=== PATIENT | male | born 1960 | race Caucasian/White ===

== ENCOUNTER 2017-05-07 19:51 | Inpatient (IN) ==
[2017-05-07] MEDS ORDERED: Aspirin 325 MG TABLET PO ONE (20:23)
--- NOTE | 2017-05-07 20:25 | Emergency Department Note ---
Disposition Clinical Impression: Lung nodules Chest pain Qualifiers: Chest pain type: unspecified Qualified Code(s): R07.9 - Chest pain, unspecified Disposition: Admitted As Inpatient Condition: Fair Time of Disposition: 23:36 Chest Pain HPI - General Chief Complaint: ED Chest Pain Stated Complaint: Chest Pain Time Seen by Provider: 05/07/17 20:09 Source: patient Limitations: no limitations Vital Signs Reviewed: Yes Nursing Notes Reviewed: Yes - History of Present Illness HPI Narrative: 56-year-old male history of CAD status post stents hypertension hyperlipidemia noncompliant been complaining of chest pain for last week worse last couple days. Patient reports sharp substernal chest pain rating to his left upper extremity patient has associated nausea diaphoresis and dyspnea with exertion. Patient states that he feels similar to when he reported his previous stents. Patient is a current smoker as well. He also has history of COPD. He reports the pain is 8 out of 10 aching quality midline sternal retrosternal Pt complaint: chest pain Pain Location: substernal Severity: moderate Severity scale (1-10): 7 Quality: aching Pain Radiation: none Improves with: nothing Worsens with: nothing Associated symptoms: Reports: nausea. Denies: vomiting, diaphoresis - Related Data Home Medications Medication Instructions Recorded Confirmed No Known Home Drugs 05/07/17 05/07/17 Allergies Allergy/AdvReac Type Severity Reaction Status Date / Time morphine Allergy Vomiting Verified 10/02/16 12:18 All systems ED: reviewed and negative except as stated. Review of Systems: As Per HPI Constitutional: Denies: fever Eyes: Denies: eye pain ENT ED: Denies: ear pain, congestion Cardiovascular: Reports: as per HPI, chest pain. Denies: palpitations Respiratory: Reports: as per HPI, cough, dyspnea, wheezes Gastrointestinal: Denies: abdominal pain, nausea Genitourinary: Denies: urgency Musculoskeletal: Denies: back pain Integumentary: Denies: rash Neurological: Denies: headache Psychiatric: Denies: anxiety Chest Pain PMH - Past Medical History Medical history: Reports: GERD, hypertension, myocardial infarction Psychiatric history: Reports: no psych history - Social History Smoking Status: Current every day smoker Alcohol use: Reports: none Drug use: Reports: marijuana Physical Exam Constitutional: alert and oriented, in NAD, tachycardic appears uncomfortable Neck: normal inspection, neck is supple, no JVD Resp: normal chest inspection, scattered wheezes. CV: Tachycardia, no murmurs/gallops/rubs, S1 and S2 heard Extremity: +2 bilateral radial and posterial tibial pulses, no pedal edema GI: normal inspection, Soft, NTND, no peritoneal signs, no palpable abdominal aortic aneurysm Back: normal inspection, no tenderness to palpation Neuro: A&O3, no gross motor or sensory deficits bilaterally MSK: normal inspection, bilateral UE and LE with normal ROM Skin: No rashes, skin warm, dry, intact - General Limitations: no limitations General appearance: alert, in no apparent distress Course Course Narrative: 56-year-old male with chest pain hypertension hyperlipidemia and previous stents concerning given his history we will try nitroglycerin trial basic lab her CBC BMP troponin his EKG shows no acute ischemic changes we will repeat after he is less tachycardic. - Reevaluation(s) Reevaluation #1: Patient had some improvement in pain after nitroglycerin was given DuoNeb for COPD exacerbation admitted to the hospital service Dr. Lu for CP workup. I did do a CT of the patient's chest due to tachycardia elevated d-dimer but is negative except for some pulmonary nodule plan is for chest pain rule out possible chest pain ischemic versus COPD exacerbation. Vital Signs Temperature 97.8 F 05/07/17 19:52 Pulse Rate 127 05/07/17 19:52 Respiratory Rate 20 05/07/17 19:52 Blood Pressure 165/103 05/07/17 19:52 O2 Sat by Pulse Oximetry 99 05/07/17 19:52 Temperature 97.8 F 05/07/17 19:52 Pulse Rate 84 05/07/17 23:22 Respiratory Rate 18 05/07/17 23:22 Blood Pressure 119/85 05/07/17 23:22 O2 Sat by Pulse Oximetry 99 05/07/17 23:22 Oxygen Delivery Oxygen Delivery Room Air Chest Pain - Differential Diagnosis Likely: fracture of rib, atypical chest pain - Medical Records Medical records reviewed: Yes I reviewed the patient's medical records. - Lab Data Lab results reviewed: Yes I reviewed the patient's lab results. Result diagrams: 05/07/17 20:38 05/07/17 20:38 Lab Results 05/07/17 05/07/17 05/07/17 Range/Units 20:38 20:38 20:38 WBC 13.2 H (4.3-11.1) K/mcL RBC 5.04 (4.19-5.50) M/mcL Hgb 14.5 (12.9-16.9) g/dL Hct 43.5 (37.5-50.1) % MCV 86.3 (83.0-100.0) fL MCH 28.8 (28.0-33.3) pg MCHC 33.3 (31.6-35.5) g/dL RDW 14.5 (11.5-14.5) % Plt Count 295 (140-400) K/mcL MPV 9.3 L (9.4-12.4) fL Immature Gran % 0.5 (0-4) % Seg Neutrophils % 58.4 % Lymphocytes % 30.1 % Monocytes % 7.6 % Eosinophils % 3.0 % Basophils % 0.4 % Neutrophils # 7.7 (1.6-8.9) K/mcL Lymphocytes # 4.0 (0.6-4.6) K/mcL Monocytes # 1.0 (0.0-1.3) K/mcL Eosinophils # 0.4 (0.0-0.6) K/mcL Basophils # 0.1 (0.0-0.2) K/mcL PT 11.1 (9.4-12.1) Seconds INR 1.0 APTT 33.2 (26.0-36.0) Seconds D-Dimer 711 H (0-500) ng/mLFEU Sodium 135 L (136-145) mEq/L Potassium 4.3 (3.5-5.1) mEq/L Chloride 104 (98-107) mEq/L Carbon Dioxide 26 (23-29) mEq/L BUN 11 (6-20) mg/dL Creatinine 0.84 (0.70-1.30) mg/dL Est GFR ( Amer) > 60 (> 60) Est GFR (Non-Af Amer) > 60 (> 60) BUN/Creatinine Ratio 13 (6-26) Glucose 101 (70-105) mg/dL Calculated Osmolality 280 (280-300) Calcium 9.7 (8.6-10.3) mg/dL Troponin I < 0.03 (< 0.04) ng/mL - Radiology Data Radiology results reviewed: Yes I reviewed the patient's radiology results. Chest X-Ray 05/07/17 19:56 IMPRESSION: Similar emphysematous changes. No radiographic evidence for acute cardiopulmonary disease process. D/ / Jared Boston / Jared Boston Interpreting Provider: Jared Boston Chest CTA 05/07/17 21:15 IMPRESSION: No evidence of pulmonary embolism or acute pulmonary abnormality. There are several small noncalcified bilateral pulmonary nodules measuring up to 7 mm. Comparison with prior studies would be helpful to confirm stability. Otherwise, see below recommendation. RECOMMENDATIONS: Fleischner Society guidelines for follow-up and management of incidentally detected pulmonary nodules: Multiple Solid Nodules: Nodule size equals 6-8 mm In a low-risk patient, CT at 3-6 months, then consider CT at 18-24 months. In a high-risk patient, CT at 3-6 months, then CT at 18-24 months. - Low risk patients include individuals with minimal or absent history of smoking and other known risk factors. - High risk patients include individuals with a history or smoking or known risk factors. Radiology 2017 http://pubs.rsna.org/doi/full/10.1148/radiol.[email or web address] D/ / Opal Irving Cha, MD / Opal Irving Cha, MD Interpreting Provider: Opal Irving Cha, MD - EKG Data EKG attestation: Yes I reviewed and interpreted this EKG. EKG shows normal: sinus rhythm Rate: tachycardia Rhythm: NSR (127Beats per minute IN 141 QRS [address] segment elevations or depressions.) [place]/QRS: normal Interpretation: no acute changes - Core Measures AMI Core Measures Followed: Yes Heart Score - Score History: Moderately Suspicious EKG: Non Specific repolarisation Disturbance Age: 45-65 Risk Factors: Equal/Greater than 3 risk factor or history of atherosclerotic disease Troponin: Less than normal limit HEART Score Total: 5 Attestation Statement - Attestation Attestation: I, Keagan Leal MD, personally evaluated this patient and discussed their management with the resident physician. I reviewed the resident's note and agree with the documented findings, medical decision making, and plan of care. 56-year-old male with history of COPD and coronary artery disease presents to the emergency department with a complaint of chest pains for the past few days. Pain is in the substernal region and left mid chest. He describes the pain as a heaviness with intermittent pinching pain. The pain sometimes radiates to the left arm. Some nausea associated with the pain. Some diaphoresis. He also complains of shortness of breath with exertion and states he cannot walk very far. On examination patient is a well-developed well-nourished well-appearing male in no acute distress. He is alert and oriented 3. There is no cyanosis or diaphoresis. Chest is nontender to palpation. Breath sounds are decreased but equal bilaterally. No rales or wheezes noted. Heart regular rate and rhythm. Abdomen soft and nontender with normal bowel sounds. Labs reviewed. Troponin normal. Chest x-ray shows no acute abnormality. D- dimer was elevated and a CTA obtained which showed no evidence of pulmonary embolism or other acute pulmonary abnormality. EKG showed a sinus tachycardia with a rate of 127. No acute ST segment elevation or depression noted. The hospitalist, Dr. Lu, was consulted and accepted admission of the patient.
[2017-05-07] MEDS: Nitroglycerin 0.4 MG TAB.SUBL SL PRN ×2 (20:46→20:55)
[2017-05-07 20:47] LABS: Basophils # 0.1 K/mcL (0.0-0.2); Basophils % 0.4 %; Eosinophils # 0.4 K/mcL (0.0-0.6); Hematocrit 43.5 % (37.5-50.1); Hemoglobin 14.5 g/dL (12.9-16.9); Immature Granulocytes % 0.5 % (0-4); Lymphocytes % 30.1 %; Mean Corpuscular HGB Conc 33.3 g/dL (31.6-35.5); Mean Corpuscular Hemoglobin 28.8 pg (28.0-33.3); Mean Corpuscular Volume 86.3 fL (83.0-100.0); Mean Platelet Volume 9.3 fL (9.4-12.4); Monocytes % 7.6 %; Neutrophils # 7.7 K/mcL (1.6-8.9); Platelet Count 295 K/mcL (140-400); Red Blood Count 5.04 M/mcL (4.19-5.50); Red Cell Distribution Width 14.5 % (11.5-14.5); Segmented Neutrophils % 58.4 %
[2017-05-07 20:53] LABS: Prothrombin Time 11.1 Seconds (9.4-12.1)
[2017-05-07 20:55] LABS: Activated Partial Thrombo Time 33.2 Seconds (26.0-36.0)
[2017-05-07] MEDS ORDERED: 0.9 % Sodium Chloride 500 ML IVC ONE (21:17)
[2017-05-07 21:18] LABS: BUN/Creatinine Ratio 13 (6-26); Blood Urea Nitrogen 11 mg/dL (6-20); Calcium 9.7 mg/dL (8.6-10.3); Carbon Dioxide 26 mEq/L (23-29); Chloride 104 mEq/L (98-107); Glucose 101 mg/dL (70-105); Osmolality,Calculated 280 (280-300); Potassium 4.3 mEq/L (3.5-5.1); Sodium 135 mEq/L (136-145); eGFR For African Americans > 60 (> 60); eGFR For Non-African Americans > 60 (> 60)
[2017-05-07 21:19] LABS: Troponin I < 0.03 ng/mL (< 0.04)
[2017-05-07] MEDS ORDERED: *HR* FentaNYL (PF) 100 MCG/2 ML VIAL IVP ONE (21:32)
[2017-05-07] MEDS ORDERED: Ipratropium/Albuterol Neb 3 ML IH ONE (22:52)
[2017-05-08] MEDS: Nitroglycerin 0.4 MG TAB.SUBL SL PRN (00:01)
[2017-05-08] MEDS: *HR* HYDROcodone/Acet 5/325 mg TABLET PO PRN ×2 (04:56→11:11)
[2017-05-08] MEDS ORDERED: Naloxone 0.4 MG/ML INJ IVP PRN (05:21)
--- NOTE | 2017-05-08 05:47 | Internal Med History&Physical ---
<Fabrice Goins - Last Filed: 05/08/17 05:44> Date of Encounter: 05/08/17 Time of Encounter: 05:44 Assessment and Plan (1) Chest pain Current visit: Yes Status: Acute Pt with multiple risk factors including prior CAD s/p stents at [facility], HTN, HLD, current smoker. Very non compliant reports previously being on BB, Statin but stopped taking all his meds. Pt reports central Chest Pain, with SOB and occasional Nausea, Vomiting, and Diaphoresis, pain improved with Nitro. Patient also reports pain is worse with breathing, and chest wall is tender on exam. Initial Troponin is negative. EKG showed no acute ischemic changes. no change from prior. Pt got ASA in ED along with NG and breathign treatment. Unclear etiology could be cardiac, pulmonary, musculoskeletal or combination. CTA negative for PE, Showed emphysematous changes. Pt reports being on inhalers in the past, but that none of them ever helped him. No wheezing on exam. Plan: Chest Pain rule out Check Echo Check stress test (ordered Pharmacologic due to patient SOB do not beleive patient will be able to exercise enough to reach satisfactory heart rate on exersise stress) trend troponin's consult cardiology if stress test is abnormal. if work up negative maximize patient's medical management: Start Statin, BB, ASA Qualifiers: Chest pain type: unspecified Qualified Code(s): R07.9 - Chest pain, unspecified (2) Lung nodules Current visit: Yes Status: Acute Patient found to have "There are few bilateral scattered noncalcified pulmonary nodules, measuring up to 7 mm in the juxtapleural left lower lobe." Patient has no old imaging to compare to. Patient current every day smoker Fleischner Society guidelines for follow-up and management of incidentally detected pulmonary nodules: Multiple Solid Nodules: Nodule size equals 6-8 mm In a high-risk patient, CT at 3-6 months, then CT at 18-24 months. Internal Medicine - H&P: HPI Chief complaint: Chest Pain Admitted From: Emergency Dept Plans for Post Hospital Care: Home History of present illness: Mr. Ivy is a 56 year old male c PMHx of CAD s/p Stents, HTN, HLD, COPD who reports to ED c/o constant central pressure like chest pain x 2 days. Patient reports SOB, LANG, and occasional Nausea, Vomiting, and Diaphoresis. Patient also reports pain is worse with breathing. Patient is very noncompliant, current everyday smoker, stopped taking all home medications(used to be on BB and statin). EKG showed no acute ischemic changes and no change from prior. Initial troponin was negative. Pt's labs showed WBC 13.2, D-Dimer 711. CXR showed emphysema, but no acute process. CTA chest showed no PE, emphysema, and incidental pulmonary nodules. Past Med Surg Social Fam HX - Past Medical History Medical history: CHF, COPD, GERD, hypertension, myocardial infarction Psychiatric history: no psych history - Social History Smoking Status: Current every day smoker Packs per day: 1/2 PK Smokeless Tobacco Status: No Alcohol use: none Drug use: marijuana Internal Medicine - H&P: Meds No Known Home Drugs 05/07/17 [History] 3 Allergy/AdvReac Type Severity Reaction Status Date / Time morphine Allergy Vomiting Verified 10/02/16 12:18 All Systems PM: A 14-system review of systems was performed and is negative for pertinent findings except as documented above in the HPI. - Constitutional Vitals: Temp Pulse Resp BP Pulse Ox 98.2 F 95 18 120/70 100 05/08/17 00:17 05/08/17 00:17 05/08/17 00:17 05/08/17 00:17 05/08/17 00:17 General appearance: Present: A&O X 3, no acute distress, answers questions appropriately - Head Head exam: Present: atraumatic, normocephalic - Eye Eye exam: Present: PERRL, conjuntiva pink, sclera anicteric Pupils: Present: PERRL - Neck Neck exam general surgery: Present: supple, trachea midline - Respiratory Respiratory exam: Present: chest wall tenderness, decreased breath sounds, CTAB. Absent: accessory muscle use, rales, rhonchi, wheezes - Cardiovascular Cardiovascular exam: Present: RRR, +S1, +S2. Absent: diastolic murmur, gallop, rubs, systolic murmur - GI/Abdominal GI/Abdominal exam: Present: normal bowel sounds, soft, no peritoneal signs. Absent: distended, tenderness - Extremities Exam Extremities exam: Present: warm, radial pulses palpable and symmetrical. Absent : calf tenderness, cyanotic, pedal edema - Neurological Exam Neurological exam: Present: alert, oriented X3, no focal deficits. Absent: facial droop, speech deficit - Skin Skin exam: Present: dry, intact Internal Med - H&P Results - Labs CBC & Chem 7: 05/07/17 20:38 05/07/17 20:38 <Juan Carlos Lu P - Last Filed: 05/08/17 19:25> Date of Encounter: 05/08/17 Internal Medicine - H&P: HPI History of present illness: Mr. Ivy is a 56 year old male All Systems PM: A 10-system review of systems was performed and is negative for pertinent findings except as documented above in the HPI. - Constitutional Vitals: Temp Pulse Resp BP Pulse Ox 98.0 F 92 16 138/98 95 05/08/17 15:49 05/08/17 15:49 05/08/17 15:57 05/08/17 16:07 05/08/17 17:45 Internal Med - H&P Results - Labs CBC & Chem 7: 05/08/17 05:54 05/08/17 05:54 Labs: Short CBC 05/08/17 Range/Units 05:54 WBC 11.4 H (4.3-11.1) K/mcL Hgb 12.2 L D (12.9-16.9) g/dL Hct 38.0 (37.5-50.1) % Plt Count 264 (140-400) K/mcL Neutrophils # 6.3 (1.6-8.9) K/mcL BMP 05/08/17 05:54 Sodium 137 Potassium 3.9 Chloride 108 H Carbon Dioxide 24 BUN 11 Creatinine 0.84 Glucose 107 H Calcium 8.8 Cardiac Enzymes 05/08/17 05/08/17 Range/Units 05:54 12:19 Troponin I < 0.03 < 0.03 (< 0.04) ng/mL - Attending Attestation I examined this patient and my medical decision-making was reviewed with the Resident Physician. I agree with the documented findings, disposition and treatment plan as described except to the extent set forth below.
--- NOTE | 2017-05-08 06:00 | Event Note ---
Date of Encounter: 05/08/17 Time of Encounter: 05:59 56/male Admitted with chest pain. No known comorbid conditions/no home medication. We will follow the rule out myocardial infarction (AMOS) protocol. I have examined patient myself and plan of care updated to him. Patient verbalized understanding. Please see the detailed H&P from resident physician Dr. Avina
[2017-05-08] MEDS ORDERED: Ipratropium/Albuterol Neb 3 ML IH PRN (06:10)
[2017-05-08] MEDS ORDERED: Regadenoson 0.4 MG/5 ML SYRINGE IVP ONE (06:11)
[2017-05-08 06:32] LABS: Magnesium 2.1 mg/dL (1.6-2.6)
[2017-05-08 06:34] LABS: BUN/Creatinine Ratio 13 (6-26); Blood Urea Nitrogen 11 mg/dL (6-20); Calcium 8.8 mg/dL (8.6-10.3); Carbon Dioxide 24 mEq/L (23-29); Chloride 108 mEq/L (98-107); Glucose 107 mg/dL (70-105); Osmolality,Calculated 284 (280-300); Potassium 3.9 mEq/L (3.5-5.1); Sodium 137 mEq/L (136-145); eGFR For African Americans > 60 (> 60); eGFR For Non-African Americans > 60 (> 60)
[2017-05-08 08:13] LABS: Basophils # 0.1 K/mcL (0.0-0.2); Basophils % 0.6 %; Eosinophils # 0.4 K/mcL (0.0-0.6); Eosinophils % 3.5 %; Immature Granulocytes % 0.4 % (0-4); Lymphocytes # 3.7 K/mcL (0.6-4.6); Lymphocytes % 32.7 %; Mean Corpuscular HGB Conc 32.1 g/dL (31.6-35.5); Mean Corpuscular Hemoglobin 28.6 pg (28.0-33.3); Mean Platelet Volume 9.9 fL (9.4-12.4); Monocytes # 0.9 K/mcL (0.0-1.3); Monocytes % 7.7 %; Neutrophils # 6.3 K/mcL (1.6-8.9); Platelet Count 264 K/mcL (140-400); Red Blood Count 4.27 M/mcL (4.19-5.50); Red Cell Distribution Width 14.9 % (11.5-14.5); Segmented Neutrophils % 55.1 %
[2017-05-08] MEDS ORDERED: Ketorolac 30 MG/ML VIAL IVP ONE (09:09)
[2017-05-08 09:20] LABS: Hemoglobin 12.2 g/dL (12.9-16.9)
[2017-05-08] MEDS: methylPREDNISolone 125 MG/2 ML VIAL IVP SCH ×3 (10:13→23:28)
[2017-05-08] MEDS: Benzonatate 100 MG CAPSULE PO SCH ×3 (10:14→22:18)
[2017-05-08] MEDS: Levofloxacin 750 MG/150 ML 750 MG/150 ML BAG IVPB SCH (10:14)
[2017-05-08] MEDS: Ipratropium/Albuterol Neb 3 ML IH SCH ×3 (11:36→23:03)
[2017-05-08 13:55] LABS: Adenovirus Not Detected (Not Detect); Bordetella Pertussis Not Detected (Not Detect); Chlamydophila pneumoniae Not Detected (Not Detect); Coronavirus 229E Not Detected (Not Detect); Coronavirus HKU1 Not Detected (Not Detect); Coronavirus NL63 Not Detected (Not Detect); Coronavirus OC43 Not Detected (Not Detect); Human Metapneumovirus Not Detected (Not Detect); Human Rhinovirus/Enterovirus Not Detected (Not Detect); Influenza A Subtype 2009 H1 Not Detected (Not Detect); Influenza A Untypeable Not Detected (Not Detect); Influenza B Not Detected (Not Detect); Mycoplasma pneumoniae Not Detected (Not Detect); Parainfluenza Virus 1 Not Detected (Not Detect); Parainfluenza Virus 2 Not Detected (Not Detect); Parainfluenza Virus 3 Not Detected (Not Detect); Parainfluenza Virus 4 Not Detected (Not Detect); Respiratory Syncytial Virus Not Detected (Not Detect)
[2017-05-08] MEDS: amLODIPine 5 MG TABLET PO SCH (16:17)
[2017-05-08] MEDS: Ketorolac 30 MG/ML VIAL IVP SCH ×2 (16:17→17:31)
--- NOTE | 2017-05-08 17:24 | Event Note ---
Date of Encounter: 05/08/17 Time of Encounter: 17:22 The patient was complaining of left-sided chest pain. Is totally reproducible to palpation. It is worse with cough and deep breaths. Discussed with cardiology. Stress test is not indicated at this time. He is being treated as a COPD exacerbation and acute bronchitis. Levaquin, steroids, DuoNeb's, Tessalon Perle. Also added Toradol for inflammation in addition to his ordered narcotic. Will obtain echocardiogram. Patient's blood pressure was a little hypertensive. He is on no home meds. Added Norvasc 5 daily and hydralazine as needed
[2017-05-08] MEDS ORDERED: Ketorolac 30 MG/ML VIAL IVP SCH (18:00)
[2017-05-08] MEDS: *HR* OxyCODONE/APAP 10/325 TABLET PO PRN (22:18)
[2017-05-09] MEDS: Ipratropium/Albuterol Neb 3 ML IH SCH ×5 (04:04→20:13)
[2017-05-09] MEDS ORDERED: Ondansetron ODT 4 MG TAB.RAPDIS SL PRN (05:30)
[2017-05-09 05:55] LABS: Basophils % 0.1 %; Hemoglobin 13.1 g/dL (12.9-16.9); Immature Granulocytes % 0.7 % (0-4); Lymphocytes # 1.2 K/mcL (0.6-4.6); Mean Corpuscular HGB Conc 33.6 g/dL (31.6-35.5); Mean Corpuscular Hemoglobin 28.9 pg (28.0-33.3); Mean Corpuscular Volume 85.9 fL (83.0-100.0); Monocytes # 0.3 K/mcL (0.0-1.3); Monocytes % 1.6 %; Platelet Count 290 K/mcL (140-400); Red Blood Count 4.54 M/mcL (4.19-5.50); Red Cell Distribution Width 14.8 % (11.5-14.5); Segmented Neutrophils % 90.6 %
[2017-05-09] MEDS: methylPREDNISolone 125 MG/2 ML VIAL IVP SCH ×4 (06:05→23:30)
[2017-05-09 06:15] LABS: BUN/Creatinine Ratio 17 (6-26); Blood Urea Nitrogen 15 mg/dL (6-20); Calcium 9.3 mg/dL (8.6-10.3); Carbon Dioxide 25 mEq/L (23-29); Chloride 107 mEq/L (98-107); Glucose 198 mg/dL (70-105); Osmolality,Calculated 292 (280-300); Potassium 4.4 mEq/L (3.5-5.1); Sodium 138 mEq/L (136-145); eGFR For African Americans > 60 (> 60); eGFR For Non-African Americans > 60 (> 60)
[2017-05-09] MEDS ORDERED: Lactulose Oral Soln 20 GM/30 ML UDC PO ONE ×2 (09:03→15:00)
[2017-05-09] MEDS: amLODIPine 5 MG TABLET PO SCH (09:13)
[2017-05-09] MEDS: Benzonatate 100 MG CAPSULE PO SCH ×3 (09:13→19:50)
[2017-05-09] MEDS: Levofloxacin 750 MG/150 ML 750 MG/150 ML BAG IVPB SCH (09:13)
[2017-05-09] MEDS: *HR* OxyCODONE/APAP 10/325 TABLET PO PRN ×2 (10:56→19:51)
--- NOTE | 2017-05-09 12:36 | Internal Med Progress Note ---
Date of Encounter: 05/09/17 Time of Encounter: 12:33 - Assessment and plan (1) COPD exacerbation Current Visit: Yes Status: Acute Assessment and plan: Continue steroids, Levaquin, Tessalon Perles, and duo nebs [id number]. O2 as needed to maintain saturations greater than 92% (2) Chest pain Current Visit: Yes Status: Acute Assessment and plan: Patient with multiple risk factors including prior CAD status post stents at [facility] , hypertension, hyperlipidemia, current smoker. Very noncompliant reports with previously been on a beta pepito and a statin but stopped taking all his meds. He presented with central chest pain short of breath and occasional nausea vomiting and diaphoresis. He stated the pain pain was not changed with nitroglycerin and caused this time a severe headache. He states the pain is worse with deep breaths and coughing. The pain was totally reproducible on the left side of his chest to palpation. Toradol was started with relief of the worst of the pain. Discussed with cardiology and agreed that this is probably secondary to a COPD exacerbation with pleuritic-type chest pain or costochondritis Troponins were negative, no acute ischemic changes on the EKG or change from prior EKG. He did get an aspirin in the ED. He also got some breathing treatments. CTA was negative for PE but showed emphysematous changes Echocardiogram was completed was a technically suboptimal due to poor echo cardiographic windows and clinical status. Patient requested to stop exam due to feeling ill. LVEF 60-65%. Not all LV segments were well visualized but overall LVEF appeared normal. Grossly normal LV chamber size wall thickness and function. Mild left ventricular diastolic dysfunction. Grossly normal right ventricular structure and function. Unable to estimate are VSP due to lack of TR jet. No obvious significant valvular dysfunction Qualifiers: Chest pain type: unspecified Qualified Code(s): R07.9 - Chest pain, unspecified (3) Lung nodules Current Visit: Yes Status: Acute Assessment and plan: Patient was found to have a few bilateral scattered noncalcified pulmonary nodules majoring up to 7 mm in that juxtapleural left lower lobe. There were no old images to compare to. The patient is a current every day smoker. (4) Costochondritis, acute Current Visit: Yes Status: Acute Assessment and plan: Chest wall pain is responding to Toradol. Cough is better controlled on Tessalon Perle (5) Constipation Current Visit: Yes Status: Acute Assessment and plan: Lactulose as needed, first dose effective for a small bowel movement Qualifiers: Qualified Code(s): K59.00 - Constipation, unspecified (6) Tobacco use disorder Current Visit: Yes Status: Acute Assessment and plan: Patient is a current every day smoker. Cessation advised (7) Noncompliance Current Visit: Yes Status: Acute Assessment and plan: Patient has a history of noncompliance. He has been ordered beta blockers and statins. He is on no home medications at this time. Has a history of hypertension and on no home medications either. - Subjective Interval history: Patient has less chest wall pain today. Cough is more controlled. He still has complaints of wheezing at rest. He is complaining of constipation and stated he has not moved his bowels in 4 days. Denies fever, chills, nausea, vomiting, changes in urination, or calf tenderness. - Constitutional Vitals: Temp Pulse Resp BP Pulse Ox 97.6 F 93 15 150/88 97 05/09/17 11:34 05/09/17 11:34 05/09/17 11:34 05/09/17 11:34 05/09/17 11:34 General appearance: Present: cooperative, A&O X 3, pleasant, no acute distress, answers questions appropriately - Head Head exam: Present: atraumatic, normocephalic - Eye Eye exam: Present: PERRL, conjuntiva pink, sclera anicteric Pupils: Present: PERRL - Neck Neck exam general surgery: Present: supple, trachea midline. Absent: lymphadenopathy - Respiratory Respiratory exam: Present: chest wall tenderness, decreased breath sounds, prolonged expiratory phase, wheezes. Absent: accessory muscle use, rales, rhonchi - Cardiovascular Cardiovascular exam: Present: RRR, +S1, +S2. Absent: diastolic murmur, gallop, rubs, systolic murmur - GI/Abdominal GI/Abdominal exam: Present: firm, normal bowel sounds, no peritoneal signs. Absent: distended, tenderness - Extremities Exam Extremities exam: Present: warm, radial pulses palpable and symmetrical. Absent : calf tenderness, cyanotic, pedal edema - Neurological Exam Neurological exam: Present: CN II-XII intact, oriented X3, no focal deficits. Absent: pronater drift, facial droop, speech deficit - Skin Skin exam: Present: dry, intact, normal color, warm Internal Medicine: Result - Labs CBC & Chem 7: 05/09/17 03:55 05/09/17 03:55 Labs: Short CBC 05/09/17 Range/Units 03:55 WBC 16.6 H (4.3-11.1) K/mcL Hgb 13.1 (12.9-16.9) g/dL Hct 39.0 (37.5-50.1) % Plt Count 290 (140-400) K/mcL Neutrophils # 15.0 H (1.6-8.9) K/mcL BMP 05/09/17 03:55 Sodium 138 Potassium 4.4 Chloride 107 Carbon Dioxide 25 BUN 15 Creatinine 0.89 Glucose 198 H Calcium 9.3 Cardiac Enzymes 05/08/17 05/08/17 Range/Units 12:19 18:24 Troponin I < 0.03 < 0.03 (< 0.04) ng/mL - ABG Interpretation ABG results: PT/INR, D-dimer PT 11.1 Seconds (9.4-12.1) 05/07/17 20:38 D-Dimer 711 ng/mLFEU (0-500) H 05/07/17 20:38 - Impressions Impressions Echocardiogram 05/08/17 05:38 Impressions: Technically sub-optimal due to poor echocardiographic windows and clinical status. Parasternal long axis and subcostal views obtained. Other views were not obtained. Patient requested to stop the examination early due to "feeling ill". LVEF 60-65%. Not all LV segments were well visualized, but overall LVEF appeared normal. Grossly normal LV chamber size, wall thickness and function. Mild left ventricular diastolic dysfunction. Grossly normal right ventricular structure and function. Unable to estimate RVSP due to lack of TR jet. No obvious significant valvular dysfunction. Findings: Study Quality * Technically sub-optimal due to poor echocardiographic windows and clinical status. Parasternal long axis and subcostal views obtained. Other views were not obtained. Patient requested to stop the examination early due to "feeling ill". ECG Findings * Sinus tachycardia. Left Ventricle * LVEF 60-65%. Not all LV segments were well visualized, but overall LVEF appeared normal. * Grossly normal LV chamber size, wall thickness and function. * Mild left ventricular diastolic dysfunction. Right Ventricle * Grossly normal right ventricular structure and function. Left Atrium * Grossly normal left atrial size. Right Atrium * Grossly normal right atrial size. Interatrial Septum * Interatrial septum not well evaluated. Aortic Valve * Trileaflet aortic valve with normal function. * No aortic regurgitation in short axis. * No aortic stenosis by 2D view. Mitral Valve * Grossly normal mitral valve structure and function. * No mitral regurgitation. * No mitral stenosis. Tricuspid Valve * Grossly normal tricuspid valve structure and function. * No tricuspid regurgitation. * Unable to estimate RVSP due to lack of TR jet. Pulmonic Valve * Pulmonic valve not well visualized. Aorta * Normally sized aortic root. Pericardium * The pericardium appears normal. IVC * The IVC is not well evaluated. Pulmonary Artery * Pulmonary artery not well visualized. Consult Discharge Plan - Plan Referrals: NONE,PCP [Primary Care Provider] -
[2017-05-09] MEDS ORDERED: Milk and Molasses Enema 200 ML RC ONE (16:35)
--- NOTE | 2017-05-09 17:58 | Electrocardiograph Report ---
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
--- NOTE | 2017-05-09 18:02 | Electrocardiograph Report ---
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
[2017-05-09] MEDS: *HR* HYDROcodone/Acet 5/325 mg TABLET PO PRN (23:29)
[2017-05-10] MEDS: Ipratropium/Albuterol Neb 3 ML IH SCH ×6 (00:15→20:44)
[2017-05-10] MEDS: methylPREDNISolone 125 MG/2 ML VIAL IVP SCH ×4 (06:40→23:07)
[2017-05-10] MEDS: *HR* OxyCODONE/APAP 10/325 TABLET PO PRN ×2 (06:40→14:29)
[2017-05-10] MEDS: Levofloxacin 750 MG/150 ML 750 MG/150 ML BAG IVPB SCH (08:04)
[2017-05-10] MEDS: Benzonatate 100 MG CAPSULE PO SCH ×3 (08:04→21:32)
[2017-05-10] MEDS: amLODIPine 5 MG TABLET PO SCH (08:04)
--- NOTE | 2017-05-10 09:38 | Internal Med Progress Note ---
Date of Encounter: 05/10/17 Time of Encounter: 09:35 - Assessment and plan (1) COPD exacerbation Current Visit: Yes Status: Acute Assessment and plan: Continue steroids, Levaquin, Tessalon Perles, and duo nebs [id number]. O2 as needed to maintain saturations greater than 92% Pulmonary consult (2) Chest pain Current Visit: Yes Status: Acute Assessment and plan: Patient with multiple risk factors including prior CAD status post stents at [facility] , hypertension, hyperlipidemia, current smoker. Very noncompliant reports with previously been on a beta pepito and a statin but stopped taking all his meds. He presented with central chest pain short of breath and occasional nausea vomiting and diaphoresis. He stated the pain pain was not changed with nitroglycerin and caused this time a severe headache. He states the pain is worse with deep breaths and coughing. The pain was totally reproducible on the left side of his chest to palpation. Toradol was started with relief of the worst of the pain. Discussed with cardiology and agreed that this is probably secondary to a COPD exacerbation with pleuritic-type chest pain or costochondritis Troponins were negative, no acute ischemic changes on the EKG or change from prior EKG. He did get an aspirin in the ED. He also got some breathing treatments. CTA was negative for PE but showed emphysematous changes Echocardiogram was completed was a technically suboptimal due to poor echo cardiographic windows and clinical status. Patient requested to stop exam due to feeling ill. LVEF 60-65%. Not all LV segments were well visualized but overall LVEF appeared normal. Grossly normal LV chamber size wall thickness and function. Mild left ventricular diastolic dysfunction. Grossly normal right ventricular structure and function. Unable to estimate are VSP due to lack of TR jet. No obvious significant valvular dysfunction The pain is well controlled on Toradol, will switch to ibuprofen around-the- clock Qualifiers: Chest pain type: unspecified Qualified Code(s): R07.9 - Chest pain, unspecified (3) Lung nodules Current Visit: Yes Status: Acute Assessment and plan: Patient was found to have a few bilateral scattered noncalcified pulmonary nodules majoring up to 7 mm in that juxtapleural left lower lobe. There were no old images to compare to. The patient is a current every day smoker. Discussed the need to have close follow-up in severe important for smoking cessation (4) Costochondritis, acute Current Visit: Yes Status: Acute Assessment and plan: Chest wall pain is responding to Toradol. Cough is better controlled on Tessalon Perle (5) Constipation Current Visit: Yes Status: Acute Assessment and plan: Lactulose as needed, first dose effective for a small hard, bowel movement Repeated with no further results, then milk and molasses emnema with good result Miralax daily Qualifiers: Qualified Code(s): K59.00 - Constipation, unspecified (6) Tobacco use disorder Current Visit: Yes Status: Acute Assessment and plan: Patient is a current every day smoker. Cessation advised and discussed today again (7) Noncompliance Current Visit: Yes Status: Acute Assessment and plan: Patient has a history of noncompliance. He has been ordered beta blockers and statins. He is on no home medications at this time. Has a history of hypertension and on no home medications either.Discussed need for followup - Subjective Interval history: Patient's chest wall pain has almost resolved. Still has some discomfort with cough and pressure applied to the chest wall. His constipation was resolved after lactulose, fern juice and then an enema. He continues to have shortness of breath and feels that he is very dyspneic on minimal exertion. He denies any chest pain, fevers, chills, abdominal pain, headache, syncope, or palpitations. He reports a harsh nonproductive cough at times. - Constitutional Vitals: Temp Pulse Resp BP Pulse Ox 97.6 F 92 17 131/84 94 05/10/17 07:42 05/10/17 07:42 05/10/17 08:15 05/10/17 07:42 05/10/17 08:15 General appearance: Present: cooperative, mild distress, A&O X 3, pleasant, answers questions appropriately - Head Head exam: Present: atraumatic, normocephalic - Eye Eye exam: Present: PERRL, conjuntiva pink, sclera anicteric Pupils: Present: PERRL - Neck Neck exam general surgery: Present: supple, trachea midline. Absent: lymphadenopathy - Respiratory Respiratory exam: Present: chest wall tenderness, decreased breath sounds, prolonged expiratory phase, wheezes. Absent: accessory muscle use, rales, rhonchi - Cardiovascular Cardiovascular exam: Present: RRR, +S1, +S2. Absent: diastolic murmur, gallop, rubs, systolic murmur - GI/Abdominal GI/Abdominal exam: Present: normal bowel sounds, soft, no peritoneal signs. Absent: distended, tenderness - Extremities Exam Extremities exam: Present: warm, radial pulses palpable and symmetrical. Absent : calf tenderness, cyanotic, pedal edema - Neurological Exam Neurological exam: Present: CN II-XII intact, oriented X3, no focal deficits, strengths equal and symetr throughout. Absent: pronater drift, facial droop, speech deficit - Skin Skin exam: Present: dry, intact, normal color, warm Internal Medicine: Result - Labs CBC & Chem 7: 05/09/17 03:55 05/09/17 03:55 - ABG Interpretation ABG results: PT/INR, D-dimer PT 11.1 Seconds (9.4-12.1) 05/07/17 20:38 D-Dimer 711 ng/mLFEU (0-500) H 05/07/17 20:38 Consult Discharge Plan - Plan Referrals: NONE,PCP [Primary Care Provider] -
[2017-05-10] MEDS: Ibuprofen 800 MG TABLET PO SCH ×2 (10:04→16:57)
[2017-05-10] MEDS: *HR* HYDROcodone/Acet 5/325 mg TABLET PO PRN ×2 (11:48→21:32)
--- NOTE | 2017-05-10 12:46 | Pulmonology Consult Note ---
Date of Encounter: 05/10/17 Time of Encounter: 12:45 Assessment and Plan (1) Acute respiratory failure with hypoxia Current Visit: Yes Status: Acute Patient presenting with Acute respiratory failure with hypoxia most likely due to COPD exacerbation as there was extensive emphyematous changes in the CT scan , since the patient presented with same chest pain what he is having today i dont think PE is contributing to the V/Q mismatch wont send him for another CTA since already had admission CTA . (2) COPD exacerbation Current Visit: Yes Status: Acute Patient with active smoking history with extensive emphysematous changes this presentation most likely COPD exacerbation will send him home on Duo neb bulizers, albuterol prn . 7 days of levaquin , 2 week taper of steroids . Will need 8 week follow up will evaluate with outpatient PFT will optimize his bronchodilator regime to ascertain exercise O2 needs before discharge (3) Lung nodules Current Visit: Yes Status: Acute 7 mm nodule will need 3 month follow up (4) Tobacco use disorder Current Visit: Yes Status: Acute Patient is motivated to stop smoking he will quit he said encouraged to do send him on nicotine patches History of Present Illness Consult date: 05/10/17 Requesting physician: Noa Rios Reason for consult: chest pain, COPD Chief complaint: Chest pain and shortness of breadth History of present illness: 56 year old male with past medical history significant for HTN, HLD, CAD s/p stent had extensive smoking history still currently smoking COPD With emphysematous changes had some asbestos exposure in the past comes with 2 days of severe chest pain which is more of pleuritic in nature initial work up in the hospital was negative for ACS and CTA didnt show any evidence of PE showed emphysematous changes with left lower lobe juxtaposed pleural based nodule which is 7 mm pulmonary was consulted for COPD exacerbation and evaluation of pulmonary nodule . Past Med Surg Social Fam HX - Past Medical History Medical history: CHF, COPD, GERD, hypertension, myocardial infarction Psychiatric history: no psych history - Social History Smoking Status: Current every day smoker Packs per day: 1/2 PK Smokeless Tobacco Status: No Alcohol use: none Drug use: marijuana Medications and Allergies No Known Home Drugs 05/07/17 [History] 3 Allergy/AdvReac Type Severity Reaction Status Date / Time morphine Allergy Vomiting Verified 10/02/16 12:18 All Systems: The remainder of the systems were reviewed and are negative Physical Examination Vital Signs: Vital Signs, Last 4 Hours Temp Pulse Resp BP Pulse Ox 05/10/17 11:40 18 97 05/10/17 11:39 98.1 F 113 18 117/71 97 Effort: mildly labored Auscultation: bilateral: wheezes Results - Laboratory Findings CBC and BMP: 05/09/17 03:55 05/09/17 03:55 PT/INR, D-dimer PT 11.1 Seconds (9.4-12.1) 05/07/17 20:38 D-Dimer 711 ng/mLFEU (0-500) H 05/07/17 20:38 Abnormal lab findings: Abnormal lab results WBC 16.6 K/mcL (4.3-11.1) H 05/09/17 03:55 RDW 14.8 % (11.5-14.5) H 05/09/17 03:55 Neutrophils # 15.0 K/mcL (1.6-8.9) H 05/09/17 03:55 D-Dimer 711 ng/mLFEU (0-500) H 05/07/17 20:38 Glucose 198 mg/dL (70-105) H 05/09/17 03:55 LDL Cholesterol, Calc 101 mg/dL (0-99) H 05/08/17 05:54 HDL Cholesterol 39 mg/dL (40-59) L 05/08/17 05:54 - Microbiology Findings Microbiology Findings: Microbiology, Last 48 Hours 05/08/17 14:50 Sputum Culture - Final Sputum 05/08/17 12:22 Streptococcus pneumoniae Antigen (M - Final Urine,Clean Catch 05/08/17 12:22 Legionella Antigen - Final Urine,Clean Catch - Clinical Findings Intake & Output: Intake & Output 05/09/17 05/10/17 05/10/17 23:59 07:59 15:59 Intake Total 400 / 400 510 / 510 Balance 400 / 400 510 / 510 Weight 112.4 kg Consult Discharge Plan - Plan Referrals: NONE,PCP [Primary Care Provider] -
[2017-05-10] MEDS: Budesonide/Formoterol 80/4.5 MDI IH SCH ×2 (15:41→20:46)
[2017-05-11] MEDS: *HR* OxyCODONE/APAP 10/325 TABLET PO PRN ×2 (00:19→15:20)
[2017-05-11] MEDS: Ipratropium/Albuterol Neb 3 ML IH SCH ×6 (00:28→20:18)
[2017-05-11] MEDS: Ibuprofen 800 MG TABLET PO SCH ×2 (02:05→09:33)
[2017-05-11] MEDS: methylPREDNISolone 125 MG/2 ML VIAL IVP SCH ×4 (05:25→23:55)
[2017-05-11 06:19] LABS: Hematocrit 40.5 % (37.5-50.1); Hemoglobin 13.2 g/dL (12.9-16.9); Mean Corpuscular HGB Conc 32.6 g/dL (31.6-35.5); Mean Corpuscular Hemoglobin 28.3 pg (28.0-33.3); Mean Corpuscular Volume 86.9 fL (83.0-100.0); Mean Platelet Volume 9.5 fL (9.4-12.4); Platelet Count 292 K/mcL (140-400); Red Blood Count 4.66 M/mcL (4.19-5.50); Red Cell Distribution Width 15.4 % (11.5-14.5)
[2017-05-11 06:34] LABS: BUN/Creatinine Ratio 21 (6-26); Blood Urea Nitrogen 19 mg/dL (6-20); Carbon Dioxide 29 mEq/L (23-29); Chloride 102 mEq/L (98-107); Glucose 132 mg/dL (70-105); Osmolality,Calculated 288 (280-300); Potassium 4.4 mEq/L (3.5-5.1); Sodium 137 mEq/L (136-145); eGFR For African Americans > 60 (> 60); eGFR For Non-African Americans > 60 (> 60)
[2017-05-11] MEDS: *HR* HYDROcodone/Acet 5/325 mg TABLET PO PRN ×3 (06:42→21:29)
--- NOTE | 2017-05-11 07:36 | Pulmonology Progress Note ---
Date of Encounter: 05/11/17 Time of Encounter: 07:15 Assessment and Plan (1) Acute respiratory failure with hypoxia Current Visit: Yes Status: Acute Patient is on room air , will need to ascertain exercise O2 needs before discharge . (2) COPD exacerbation Current Visit: Yes Status: Acute To send home on duoneb nebulizer , albuterol prn , Symbicort will need steroid taper over 2 weeks , to complete 7 day course of antibiotics . Will need 6-8 week follow up as an outpatient (3) Lung nodules Current Visit: Yes Status: Acute Will need [address] scan follow up (4) Tobacco use disorder Current Visit: Yes Status: Acute Patient is motivated to stop smoking Subjective Principal diagnosis: COPD exacerbation Interval history: Patient is lying in the bed now on room air says his shortness of breadth is lot better , his chest pain is lot better , has some epigastric pain has h/o duodenal ulcer he is scheduled for endoscopy. Objective PUL Vital signs: Last Vital Signs Temp 97.7 F 05/11/17 06:44 Pulse 95 05/11/17 06:44 Resp 18 05/11/17 06:44 BP 182/119 05/11/17 06:45 Pulse Ox 95 05/11/17 06:44 Auscultation: bilateral: wheezes Results - Laboratory Findings CBC and BMP: 05/11/17 05:50 05/11/17 05:50 PT/INR, D-dimer PT 11.1 Seconds (9.4-12.1) 05/07/17 20:38 D-Dimer 711 ng/mLFEU (0-500) H 05/07/17 20:38 Abnormal lab findings: Abnormal lab results WBC 22.7 K/mcL (4.3-11.1) H 05/11/17 05:50 RDW 15.4 % (11.5-14.5) H 05/11/17 05:50 Neutrophils # 15.0 K/mcL (1.6-8.9) H 05/09/17 03:55 D-Dimer 711 ng/mLFEU (0-500) H 05/07/17 20:38 Glucose 132 mg/dL (70-105) H 05/11/17 05:50 LDL Cholesterol, Calc 101 mg/dL (0-99) H 05/08/17 05:54 HDL Cholesterol 39 mg/dL (40-59) L 05/08/17 05:54 - Clinical Findings Intake & Output: Intake & Output 05/10/17 05/10/17 05/11/17 15:59 23:59 07:59 Intake Total 850 / 850 240 / 240 120 / 120 Balance 850 / 850 240 / 240 120 / 120 Weight 112.854 kg Consult Discharge Plan - Plan Referrals: NONE,PCP [Primary Care Provider] -
[2017-05-11] MEDS: amLODIPine 5 MG TABLET PO SCH (07:49)
[2017-05-11] MEDS: Benzonatate 100 MG CAPSULE PO SCH ×3 (07:49→21:15)
[2017-05-11] MEDS: Levofloxacin 750 MG/150 ML 750 MG/150 ML BAG IVPB SCH (07:50)
[2017-05-11] MEDS: Budesonide/Formoterol 80/4.5 MDI IH SCH ×2 (08:05→20:18)
[2017-05-11] MEDS: Pantoprazole 40 MG VIAL IVP SCH ×2 (08:27→09:34)
[2017-05-11] MEDS ORDERED: amLODIPine 5 MG TABLET PO ONE (08:58)
--- NOTE | 2017-05-11 12:06 | Internal Med Progress Note ---
Date of Encounter: 05/11/17 Time of Encounter: 12:04 - Assessment and plan (1) COPD exacerbation Current Visit: Yes Status: Acute Assessment and plan: Continue steroids, Levaquin, Tessalon Perles, and duo nebs [id number]. O2 as needed to maintain saturations greater than 92% Pulmonary following 6mwt before discharge to determine home 02 needs (2) Chest pain Current Visit: Yes Status: Acute Assessment and plan: Patient with multiple risk factors including prior CAD status post stents at [facility] , hypertension, hyperlipidemia, current smoker. Very noncompliant reports with previously been on a beta pepito and a statin but stopped taking all his meds. He presented with central chest pain short of breath and occasional nausea vomiting and diaphoresis. He stated the pain pain was not changed with nitroglycerin and caused this time a severe headache. He states the pain is worse with deep breaths and coughing. The pain was totally reproducible on the left side of his chest to palpation. Toradol was started with relief of the worst of the pain. Discussed with cardiology and agreed that this is probably secondary to a COPD exacerbation with pleuritic-type chest pain or costochondritis Troponins were negative, no acute ischemic changes on the EKG or change from prior EKG. He did get an aspirin in the ED. He also got some breathing treatments. CTA was negative for PE but showed emphysematous changes Echocardiogram was completed was a technically suboptimal due to poor echo cardiographic windows and clinical status. Patient requested to stop exam due to feeling ill. LVEF 60-65%. Not all LV segments were well visualized but overall LVEF appeared normal. Grossly normal LV chamber size wall thickness and function. Mild left ventricular diastolic dysfunction. Grossly normal right ventricular structure and function. Unable to estimate are VSP due to lack of TR jet. No obvious significant valvular dysfunction The pain controlled on Toradol, will switch to ibuprofen [id number] Qualifiers: Chest pain type: unspecified Qualified Code(s): R07.9 - Chest pain, unspecified (3) Lung nodules Current Visit: Yes Status: Acute Assessment and plan: Patient was found to have a few bilateral scattered noncalcified pulmonary nodules majoring up to 7 mm in that juxtapleural left lower lobe. There were no old images to compare to. The patient is a current every day smoker. Discussed the need to have close follow-up in severe important for smoking cessation, will follow-up with pulmonology as an outpatient (4) Costochondritis, acute Current Visit: Yes Status: Acute Assessment and plan: Chest wall pain controlled with Toradol, switch to oral Motrin. May have to reconsider this as patient is now having severe epigastric discomfort. Cough is better controlled on Tessalon Perle (5) Constipation Current Visit: Yes Status: Acute Assessment and plan: Lactulose as needed, first dose effective for a small hard, bowel movement Repeated with no further results, then milk and molasses enema with good result Miralax daily Qualifiers: Qualified Code(s): K59.00 - Constipation, unspecified (6) Tobacco use disorder Current Visit: Yes Status: Acute Assessment and plan: Patient is a current every day smoker. Cessation advised and discussed today again (7) Noncompliance Current Visit: Yes Status: Acute Assessment and plan: Patient has a history of noncompliance. He has been ordered beta blockers and statins. He is on no home medications at this time. Has a history of hypertension and on no home medications either.Discussed need for followup (8) Epigastric burning sensation Current Visit: Yes Status: Acute Assessment and plan: GI consult in patient with history of " duodenal ulcer". Protonix IV and by mouth and a M for EGD Motrin with food - Subjective Interval history: Patient's complaint of severe epigastric pain 10 out of 10. Nurses report that when he is having the pain in his blood pressure becomes hypertensive. The patient told me it is the same pain as he had when he had a ulcer in the past. He denies chest pain, his chest wall pain is much improved. He denies palpitations, nausea, vomiting cause of constipation, or diarrhea. He is voiding without difficulty. His breathing he feels is improved. He is walking in the halls without dyspnea. - Constitutional Vitals: Temp Pulse Resp BP Pulse Ox 97.3 F L 96 16 163/95 97 05/11/17 11:06 05/11/17 11:06 05/11/17 11:51 05/11/17 11:05/11/17 11:51 General appearance: Present: cooperative, mild distress, A&O X 3, pleasant, answers questions appropriately - Head Head exam: Present: atraumatic, normocephalic - Eye Eye exam: Present: PERRL, conjuntiva pink, sclera anicteric Pupils: Present: PERRL - Neck Neck exam general surgery: Present: supple, trachea midline. Absent: lymphadenopathy - Respiratory Respiratory exam: Present: chest wall tenderness, decreased breath sounds, prolonged expiratory phase, wheezes. Absent: accessory muscle use, rales, rhonchi Additional comments: Coarse bilateral wheeze and intermittent harsh cough on forced expiration - Cardiovascular Cardiovascular exam: Present: RRR, +S1, +S2. Absent: diastolic murmur, gallop, rubs, systolic murmur - GI/Abdominal GI/Abdominal exam: Present: normal bowel sounds, soft, no peritoneal signs. Absent: distended, tenderness Additional comments: Mid epigastric discomfort not reproducible - Extremities Exam Extremities exam: Present: warm, radial pulses palpable and symmetrical. Absent : calf tenderness, cyanotic, pedal edema - Neurological Exam Neurological exam: Present: alert, CN II-XII intact, normal gait, oriented X3, no focal deficits. Absent: pronater drift, facial droop, speech deficit - Skin Skin exam: Present: dry, intact, normal color, warm Internal Medicine: Result - Labs CBC & Chem 7: 05/11/17 05:50 05/11/17 05:50 Labs: Short CBC 05/11/17 Range/Units 05:50 WBC 22.7 H (4.3-11.1) K/mcL Hgb 13.2 (12.9-16.9) g/dL Hct 40.5 (37.5-50.1) % Plt Count 292 (140-400) K/mcL BMP 05/11/17 05:50 Sodium 137 Potassium 4.4 Chloride 102 Carbon Dioxide 29 BUN 19 Creatinine 0.89 Glucose 132 H Calcium 10.0 - ABG Interpretation ABG results: PT/INR, D-dimer PT 11.1 Seconds (9.4-12.1) 05/07/17 20:38 D-Dimer 711 ng/mLFEU (0-500) H 05/07/17 20:38 Consult Discharge Plan - Plan Referrals: NONE,PCP [Primary Care Provider] -
--- NOTE | 2017-05-11 12:50 | Gastroenterology Consult Note ---
<Jc Cervantes - Last Filed: 05/11/17 12:48> Date of Encounter: 05/11/17 Time of Encounter: 11:05 - Assessment and plan (1) Epigastric pain Current Visit: Yes Status: Acute Assessment and plan: History of gastric/duodenal ulcer per patient report. Continue PPI. Recommend stopping NSAIDs. Plan for EGD today to r/o esophagitis, gastritis, duodenitis, PUD, MW tear, or AVM. Keep NPO for procedure. Use PPI half hour before breakfast or evening meal. Lifestyle modifications include: 1) Elevate the head of the bed on 4"-6" blocks. 2) Exercise/Weight loss 3) Decrease the size of portions at mealtimes. 4) Avoid wearing tight clothing 5) Avoid recumbency for 3 hours after meals. 6) Avoid bedtime snacks. 7) Avoid fried or fatty foods, chocolate, peppermint, onions, garlic, coffee ( including decaf), carbonated beverages, ketchup/mustards, vinegar, tomato sauce , citrus fruits/juices. 8) Avoid cigarettes and alcohol. 9) Avoid aspirin, anti-inflammatory pain medications other than acetaminophen. (2) Constipation Current Visit: Yes Status: Acute Assessment and plan: Continue Miralax up to BID PRN. Start daily fiber supplement. Qualifiers: Constipation type: unspecified constipation type Qualified Code(s): K59.00 - Constipation, unspecified - Time Spent With Patient Total time spent is greater than 50% in coordination of care (as documented) at patient's floor/unit and/or counseling patient: GI History of Present Illness - Data of Consult Patient: new to practice Consult date: 05/11/17 Requesting Physician: Noa Rios - Consult Narrative Reason for consult: Epigastric pain History of present illness: Mr. Ivy is a 56 year old male with PMHx of CAD s/p stents, CHF, COPD, GERD, HTN, PR who was admitted with chest pain for 2 days. On admission he reported SOB, LANG, nausea, vomiting, and diaphoresis. Patient is very noncompliant, current everyday smoker, stopped taking all home medications(used to be on BB and statin). Workup negative for ACS. CXR showed emphysema, but no acute process. CTA chest showed no PE, emphysema, and incidental pulmonary nodules. Pt reported constipation, he was given lactulose and milk and molasses enema with good result. Procedures: EGD 02/2016 at [facility] with ulcer per patient report. NSAIDs: None Anticoagulation: None Past Med Surg Social Fam HX - Past Medical History Medical history: CHF, COPD, GERD, hypertension, myocardial infarction Psychiatric history: no psych history - Social History Smoking Status: Current every day smoker Packs per day: 1/2 PK Smokeless Tobacco Status: No Alcohol use: none Drug use: marijuana - Gastrointestinal Gastrointestinal: Present: as per HPI - Constitutional Constitutional: as per HPI - EENT Eyes: as per HPI Ears: Present: as per HPI Nose, mouth and throat: Present: as per HPI - Cardiovascular Cardiovascular ROS: Present: as per HPI - Respiratory Respiratory IM: Present: as per HPI - Genitourinary Genitourinary: Absent: change in color, Urinary frequency - Neurological ROS Neurological GI: Present: as per HPI - Hematologic/Lymphatic Hematologic/Lymphatic pediatric: Present: as per HPI - Musculoskeletal Musculoskeletal ROS GI: Present: as per HPI - Integumentary Integumentary GI: Present: as per HPI - Psychiatric ROS Psychiatric GI: Present: as per HPI - Endocrine Endocrine IM: Present: as per HPI - Constitutional Vitals: Temp Pulse Resp BP Pulse Ox 97.3 F L 96 16 163/95 97 05/11/17 11:06 05/11/17 11:06 05/11/17 11:51 05/11/17 11:06 05/11/17 11:51 General appearance: Present: cooperative, A&O X 3, no acute distress, answers questions appropriately - Head Head exam: Present: atraumatic, normocephalic - Eye Eye exam: Present: normal appearance, sclera anicteric - ENT ENT exam: Present: mucous membranes dry - Neck Neck exam general surgery: Present: normal inspection, trachea midline - Respiratory Respiratory exam: Present: CTAB. Absent: rales, rhonchi - Cardiovascular Cardiovascular exam: Present: RRR, +S1, +S2 - GI/Abdominal GI/Abdominal exam: Present: soft, tenderness (epigastric), no peritoneal signs. Absent: distended, firm, guarding - Rectal Rectal exam: Present: deferred - Extremities Exam Extremities exam: Present: warm - Neurological Exam Neurological exam: Present: no focal deficits - Psychiatric Psychiatric exam: Present: normal affect, normal mood - Skin Skin exam: Present: dry, intact, normal color, warm Results - Labs CBC & Chem 7: 05/11/17 05:50 05/11/17 05:50 Labs: Last Result Calcium 10.0 mg/dL (8.6-10.3) 05/11/17 05:50 Troponin I < 0.03 ng/mL (< 0.04) 05/08/17 18:24 Triglycerides 76 mg/dL (< 150) 05/08/17 05:54 Stool Occult Blood Negative (Negative) 05/09/17 15:34 Entire Visit Hgb 13.2 g/dL (12.9-16.9) 05/11/17 05:50 Hct 40.5 % (37.5-50.1) 05/11/17 05:50 PT 11.1 Seconds (9.4-12.1) 05/07/17 20:38 - ABG ABG results: PT/INR, D-dimer PT 11.1 Seconds (9.4-12.1) 05/07/17 20:38 D-Dimer 711 ng/mLFEU (0-500) H 05/07/17 20:38 Consult Discharge Plan - Plan Referrals: NONE,PCP [Primary Care Provider] - <Stephania Timmons - Last Filed: 05/11/17 17:47> Date of Encounter: 05/11/17 Time of Encounter: 18:00 - Time Spent With Patient Total time spent is greater than 50% in coordination of care (as documented) at patient's floor/unit and/or counseling patient: GI History of Present Illness - Data of Consult Requesting Physician: Noa Rios - Consult Narrative History of present illness: Mr. Ivy is a 56 year old male - Constitutional Vitals: Temp Pulse Resp BP Pulse Ox 97.8 F 97 16 142/93 95 05/11/17 16:46 05/11/17 17:15 05/11/17 17:15 05/11/17 17:15 05/11/17 17:15 Results - Labs CBC & Chem 7: 05/11/17 05:50 05/11/17 05:50 Labs: Last Result Calcium 10.0 mg/dL (8.6-10.3) 05/11/17 05:50 Troponin I < 0.03 ng/mL (< 0.04) 05/08/17 18:24 Triglycerides 76 mg/dL (< 150) 05/08/17 05:54 Stool Occult Blood Negative (Negative) 05/09/17 15:34 Entire Visit Hgb 13.2 g/dL (12.9-16.9) 05/11/17 05:50 Hct 40.5 % (37.5-50.1) 05/11/17 05:50 PT 11.1 Seconds (9.4-12.1) 05/07/17 20:38 - ABG ABG results: PT/INR, D-dimer PT 11.1 Seconds (9.4-12.1) 05/07/17 20:38 D-Dimer 711 ng/mLFEU (0-500) H 05/07/17 20:38 - Attending Attestation I have personally performed a face to face evaluation on this patient. I have reviewed and agree with the care plan. History and Exam by me shows:
[2017-05-11] MEDS ORDERED: *HR* Midazolam HCl 5 MG/5 ML VIAL IVP ONE (16:34)
[2017-05-11] MEDS ORDERED: *HR* FentaNYL (PF) 100 MCG/2 ML VIAL ONE ×2 (16:34→22:23)
[2017-05-11] MEDS ORDERED: Tetracaine/Benzocaine/Butamben 200MG/SPRAY (100SPY/BOT) MM ONE (16:51)
[2017-05-11] MEDS ORDERED: *HR* Midazolam HCl 2 MG/2 ML VIAL IVP ONE (16:51)
[2017-05-11] MEDS ORDERED: Simethicone 40 MG/0.6 ML MLS IR ONE (16:51)
[2017-05-11] MEDS: *HR* FentaNYL (PF) 100 MCG/2 ML VIAL IVP ONE ×3 (16:53→16:57)
[2017-05-11] MEDS ORDERED: Pantoprazole 40 MG VIAL IVP ONE (17:19)
[2017-05-11] MEDS: Pantoprazole 40 MG in 0.9 % Sodium Chloride Mini Bag 100 ML IVC SCH ×2 (17:46→23:56)
[2017-05-11] MEDS ORDERED: *HR* FentaNYL (PF) 100 MCG/2 ML VIAL IVP ONE (22:21)
[2017-05-11 23:00] LABS: Basophils % 0.3 %; Hematocrit 42.2 % (37.5-50.1); Mean Corpuscular HGB Conc 33.2 g/dL (31.6-35.5); Mean Corpuscular Hemoglobin 28.6 pg (28.0-33.3); Nucleated Red Blood Cells 0.1 /100 WBC (0); Red Cell Distribution Width 15.4 % (11.5-14.5); Segmented Neutrophils % 83.3 %
[2017-05-11] MEDS ORDERED: MetroNIDAZOLE 500 MG/100 ML 500 MG/100 ML BAG IVPB SCH (23:00)
[2017-05-11 23:02] LABS: Basophils # 0.1 K/mcL (0.0-0.2); Lymphocytes # 1.8 K/mcL (0.6-4.6); Mean Corpuscular Volume 86.1 fL (83.0-100.0); Mean Platelet Volume 9.3 fL (9.4-12.4); Monocytes # 1.4 K/mcL (0.0-1.3); Monocytes % 5.4 %; Neutrophils # 21.9 K/mcL (1.6-8.9); Platelet Count 332 K/mcL (140-400)
[2017-05-11 23:06] LABS: INR 1.1; Prothrombin Time 11.7 Seconds (9.4-12.1)
[2017-05-11 23:20] LABS: Alanine Aminotransferase 69 Units/L (7-52); Albumin 4.2 g/dL (3.5-5.7); Albumin/Globulin Ratio 1.7 (1.1-2.2); Alkaline Phosphatase 82 Units/L (34-104); Aspartate Amino Transferase 24 Units/L (13-39); BUN/Creatinine Ratio 24 (6-26); Bilirubin,Total 0.3 mg/dL (0.3-1.0); Blood Urea Nitrogen 24 mg/dL (6-20); Calcium 9.6 mg/dL (8.6-10.3); Carbon Dioxide 23 mEq/L (23-29); Chloride 99 mEq/L (98-107); Globulin 2.5 g/dL (2.4-3.5); Glucose 183 mg/dL (70-105); Osmolality,Calculated 287 (280-300); Potassium 3.6 mEq/L (3.5-5.1); Sodium 134 mEq/L (136-145); Total Protein 6.7 g/dL (6.4-8.9); eGFR For African Americans > 60 (> 60); eGFR For Non-African Americans > 60 (> 60)
[2017-05-11 23:21] LABS: Reactive Lymphocytes Present (Not Present)
[2017-05-11] MEDS ORDERED: *HR* FentaNYL (PF) 100 MCG/2 ML VIAL IVP PRN (23:39)
[2017-05-12] MEDS: Ipratropium/Albuterol Neb 3 ML IH SCH ×7 (00:06→23:16)
[2017-05-12] MEDS: *HR* FentaNYL (PF) 100 MCG/2 ML VIAL ONE ×2 (00:36→00:44)
[2017-05-12] MEDS ORDERED: *HR* FentaNYL (PF) 100 MCG/2 ML VIAL IVP ONE (00:38)
[2017-05-12] MEDS ORDERED: FentaNYL (PF) 1,000 MCG in 0.9 % Sodium Chloride 80 ML IVC SCH (00:45)
--- NOTE | 2017-05-12 00:56 | Event Note ---
Date of Encounter: 05/12/17 Time of Encounter: 00:35 Called by RN to see patient for intractable pain after EGD today. He had clipping of an ulcer by GI today/yesterday. He now has intractable pain, unresponsive to PRN fentanyl. On exam, he has severe abdominal pain, guarding, and peritoneal signs. He had CXR and KUB done 2 hours ago. I reviewed the reports and noted negative KUB but free air under diaphragm on CXR. I viewed the CXR personally and noted the free air as well. I called Dr. Delcid (surgery) and requested a STAT consult. He is finishing an OR case now and will see him shortly. I am transferring patient to ICU, starting fentanyl drip for pain control, and continuing IV antibiotics. Discussed with patient and and they understand he will likely require surgery tonight/soon.
[2017-05-12] MEDS ORDERED: *HR* Metoprolol 5 MG/5 ML VIAL IVP PRN ×2 (02:18→07:06)
--- NOTE | 2017-05-12 02:27 | Anesthesia Evaluation PreOp ---
Date of Encounter: 05/12/17 Time of Encounter: 02:25 - Past History Planned Operation: Expl Lap Cardiac History: UT, HTN, Hyperlipidemia Pulmonary History: Smoker, COPD, Other Other Medical History: GERD, Other (Colon Ca s/p very limited ChemoTx [ x1??] and then lost to follow up.) Anesthesia History: Past Anesthesia (No prior) Alcohol Use: none Drug use: marijuana Medications and Allergies No Known Home Drugs 05/07/17 [History] 3 Allergy/AdvReac Type Severity Reaction Status Date / Time morphine Allergy Vomiting Verified 10/02/16 12:18 - Meds/Allergy Pre-op Review Medications Reviewed: Yes Allergies Reviewed: Yes Anesthesia Results - Labs 05/11/17 22:42 05/11/17 22:42 Laboratory Results Impressions Chest CTA 05/07/17 21:15 IMPRESSION: No evidence of pulmonary embolism or acute pulmonary abnormality. There are several small noncalcified bilateral pulmonary nodules measuring up to 7 mm. Comparison with prior studies would be helpful to confirm stability. Otherwise, see below recommendation. RECOMMENDATIONS: Fleischner Society guidelines for follow-up and management of incidentally detected pulmonary nodules: Multiple Solid Nodules: Nodule size equals 6-8 mm In a low-risk patient, CT at 3-6 months, then consider CT at 18-24 months. In a high-risk patient, CT at 3-6 months, then CT at 18-24 months. - Low risk patients include individuals with minimal or absent history of smoking and other known risk factors. - High risk patients include individuals with a history or smoking or known risk factors. Radiology 2017 http://pubs.rsna.org/doi/full/10.1148/radiol.[email or web address] D/ / Opal Irving Cha, MD / Opal Irving Cha, MD Interpreting Provider: Opal Irving Cha, MD Echocardiogram 05/08/17 05:38 Impressions: Technically sub-optimal due to poor echocardiographic windows and clinical status. Parasternal long axis and subcostal views obtained. Other views were not obtained. Patient requested to stop the examination early due to "feeling ill". LVEF 60-65%. Not all LV segments were well visualized, but overall LVEF appeared normal. Grossly normal LV chamber size, wall thickness and function. Mild left ventricular diastolic dysfunction. Grossly normal right ventricular structure and function. Unable to estimate RVSP due to lack of TR jet. No obvious significant valvular dysfunction. Findings: Study Quality * Technically sub-optimal due to poor echocardiographic windows and clinical status. Parasternal long axis and subcostal views obtained. Other views were not obtained. Patient requested to stop the examination early due to "feeling ill". ECG Findings * Sinus tachycardia. Left Ventricle * LVEF 60-65%. Not all LV segments were well visualized, but overall LVEF appeared normal. * Grossly normal LV chamber size, wall thickness and function. * Mild left ventricular diastolic dysfunction. Right Ventricle * Grossly normal right ventricular structure and function. Left Atrium * Grossly normal left atrial size. Right Atrium * Grossly normal right atrial size. Interatrial Septum * Interatrial septum not well evaluated. Aortic Valve * Trileaflet aortic valve with normal function. * No aortic regurgitation in short axis. * No aortic stenosis by 2D view. Mitral Valve * Grossly normal mitral valve structure and function. * No mitral regurgitation. * No mitral stenosis. Tricuspid Valve * Grossly normal tricuspid valve structure and function. * No tricuspid regurgitation. * Unable to estimate RVSP due to lack of TR jet. Pulmonic Valve * Pulmonic valve not well visualized. Aorta * Normally sized aortic root. Pericardium * The pericardium appears normal. IVC * The IVC is not well evaluated. Pulmonary Artery * Pulmonary artery not well visualized. Chest X-Ray 05/11/17 22:14 IMPRESSION: Gas beneath the hemidiaphragms, presumably related to abdominal surgery today. No focal pulmonary consolidation. D/ / Opal Irving Cha, MD / Opal Irving Cha, MD Interpreting Provider: Opal Irving Cha, MD X-Ray 05/11/17 22:14 IMPRESSION: No evidence of free air in the abdomen. D/ / Adolfo Barahona MD / Adolfo Barahona MD Interpreting Provider: Adolfo Barahona MD - Imaging EKG: image reviewed Anesthesia Exam Vital Signs Temp Pulse Resp BP Pulse Ox 05/12/17 02:00 96 30 176/115 93 05/12/17 01:53 92 05/12/17 01:35 97.9 F 92 25 173/110 93 05/12/17 00:49 95 20 166/110 93 05/12/17 00:38 92 22 193/124 95 05/12/17 00:11 91 18 169/118 97 05/11/17 20:20 20 94 05/11/17 20:08 97.8 F 96 16 124/80 97 05/11/17 17:15 97 16 142/93 95 05/11/17 17:10 100 16 160/104 94 05/11/17 17:05 98 16 157/98 94 05/11/17 17:00 96 16 148/92 92 05/11/17 16:55 100 16 148/102 94 05/11/17 16:50 98 16 155/104 94 05/11/17 16:46 97.8 F 92 16 148/87 925 05/11/17 16:30 18 92 05/11/17 15:09 97.8 F 108 18 134/90 92 05/11/17 11:51 16 97 05/11/17 11:06 97.3 F L 96 18 163/95 93 05/11/17 11:02 93 05/11/17 06:45 182/119 05/11/17 06:44 97.7 F 95 18 187/126 95 05/11/17 03:34 97.2 F L 78 16 145/87 96 Intake and Output 05/11/17 05/11/17 05/12/17 15:59 23:59 07:59 Intake Total 100 / 100 100 / 100 Balance 100 / 100 100 / 100 Intake: IV Fluids 100 / 100 100 / 100 Protonix 40 MG In 0.9 % Sodium 100 / 100 Chloride (Mini-Bag +) 100 ML @ 20 mls/hr IVC .Q5H NITESH Rx#: [id number] Flagyl Premix 500 MG/100 ML 500 100 / 100 mg In 100 ml @ 100 mls/hr IVPB Q8HR NITESH Rx#:[id number] Other: # Voids 2 Blood Glucose* 117 - SPOOL CLEANER LOC: Oriented SPOOL CLEANER Motor: Normal RUE, Normal LUE, Normal RLE, Normal LLE, Normal Face SPOOL CLEANER Sensory: Normal: RUE, LUE, RLE, LLE, Face - Cardiac Rhythm: Regular Murmur: None - Pulmonary Breath Sounds: bilateral Clear Respiratory Effort: Symmetrical Anesthesia Assess/Plan ASA Score: 3 Modified Steele Scale for Level of Consciousness: Cooperative, oriented, and tranquil Anesthetic Plan: General Monitoring Plan: Standard Monitors Recovery Plan: PACU Anes Supervising Prov Stmt: Pt seen/evaluated, R&B Discussed questions answered ordered and consent obtained. Marielos Almaguer MD
--- NOTE | 2017-05-12 02:32 | General Surgery Consult Note ---
Date of Encounter: 05/12/17 Time of Encounter: 02:27 Assessment and Plan (1) Pneumoperitoneum Current Visit: Yes Status: Acute 56M with duodenal ulcer s/p EGD and clipping now with free air; peritoneal on exam NPO IVF abx, antifungal PPI gtt NG tube consented for ex lap discussed in detail the risks and benefits of the procedure, including, but not limited to, prolonged intubation, repeat surgeries, and ; For the procedure to occur, the patient has agree to rescind his DNR CC DNI status and for 48 hours after. History of Present Illness Consult date: 05/12/17 Reason for consult: abdominal pain History of present illness: 56M h/o CAD, current smoker, obese, reportedly was treated non surgically for stomach cancer who presented with significant abdominal pain. During his work up was found to have a duodenal ulcer. After an attempt at clipping during EGD , post procedurally the patient began having exquisite abdominal pain localized to his midepigastrium. His HR and RR are wnl, but he his hypertensive. Imaging confirms the finding of free air. All imaging was reviewed and interpreted by me. Surgery was consulted for management recommendations. Past Med Surg Social Fam HX - Past Medical History Medical history: CHF, COPD, GERD, hypertension, myocardial infarction Psychiatric history: no psych history - Past Surgical History Surgical History: no surgical history - Social History Smoking Status: Current every day smoker Packs per day: 1/2 PK Smokeless Tobacco Status: No Alcohol use: none Drug use: marijuana - Additional Family History Additional family history: non contributory Medications and Allergies No Known Home Drugs 05/07/17 [History] 3 Allergy/AdvReac Type Severity Reaction Status Date / Time morphine Allergy Vomiting Verified 10/02/16 12:18 Review of Systems All systems PM: The remainder of the systems were reviewed and are negative General Surgery Exam Initial Vital Signs Temp Pulse Resp BP Pulse Ox 97.8 F 127 20 165/103 99 05/07/17 19:52 05/07/17 19:52 05/07/17 19:52 05/07/17 19:52 05/07/17 19:52 - General physical appearance no distress - Eyes normal ocular movement - ENT normocephalic - Neck no lymphadectomy - Respiratory normal expansion, normal respiratory effort - Cardiovascular Cardiovascular exam: Present: RRR - Abdomen Abdomen general surgery: Present: soft, tender Abdominal Tenderness: Present: epigastic (peritoneal on exam) - Integumentary Integumentary general surgery: Present: warm and dry - Neurologic Present: CN 2-12 grossly intact - Psychiatric Psychiatric general surgery: Present: A&Ox3 Exam Initial Vital Signs Temp Pulse Resp BP Pulse Ox 97.8 F 127 20 165/103 99 05/07/17 19:52 05/07/17 19:52 05/07/17 19:52 05/07/17 19:52 05/07/17 19:52 Results - Labs 05/11/17 22:42 05/11/17 22:42 Abnormal lab results WBC 26.3 K/mcL (4.3-11.1) H 05/11/17 22:42 RDW 15.4 % (11.5-14.5) H 05/11/17 22:42 MPV 9.3 fL (9.4-12.4) L 05/11/17 22:42 Neutrophils # 21.9 K/mcL (1.6-8.9) H 05/11/17 22:42 Monocytes # 1.4 K/mcL (0.0-1.3) H 05/11/17 22:42 Nucleated RBCs/100 WBC 0.1 /100 WBC (0) H 05/11/17 22:42 Reactive Lymphocytes Present (Not Present) A 05/11/17 22:42 D-Dimer 711 ng/mLFEU (0-500) H 05/07/17 20:38 Sodium 134 mEq/L (136-145) L 05/11/17 22:42 BUN 24 mg/dL (6-20) H 05/11/17 22:42 Glucose 183 mg/dL (70-105) H 05/11/17 22:42 POC Glucose 117 (58-89) H 05/12/17 01:23 ALT 69 Units/L (7-52) H 05/11/17 22:42 Troponin I 0.13 ng/mL (< 0.04) H* 05/11/17 22:42 LDL Cholesterol, Calc 101 mg/dL (0-99) H 05/08/17 05:54 HDL Cholesterol 39 mg/dL (40-59) L 05/08/17 05:54 Diabetes panel 05/11/17 05/11/17 Range/Units 05:50 22:42 Sodium 137 134 L (136-145) mEq/L Potassium 4.4 3.6 (3.5-5.1) mEq/L Chloride 102 99 (98-107) mEq/L Carbon Dioxide 29 23 (23-29) mEq/L BUN 19 24 H (6-20) mg/dL Creatinine 0.89 0.98 (0.70-1.30) mg/dL Glucose 132 H 183 H (70-105) mg/dL Calcium 10.0 9.6 (8.6-10.3) mg/dL AST 24 (13-39) Units/L ALT 69 H (7-52) Units/L Alkaline Phosphatase 82 (34-104) Units/L Albumin 4.2 (3.5-5.7) g/dL Calcium panel 05/11/17 05/11/17 Range/Units 05:50 22:42 Calcium 10.0 9.6 (8.6-10.3) mg/dL Albumin 4.2 (3.5-5.7) g/dL Pituitary panel 05/11/17 05/11/17 Range/Units 05:50 22:42 Sodium 137 134 L (136-145) mEq/L Potassium 4.4 3.6 (3.5-5.1) mEq/L Chloride 102 99 (98-107) mEq/L Carbon Dioxide 29 23 (23-29) mEq/L BUN 19 24 H (6-20) mg/dL Creatinine 0.89 0.98 (0.70-1.30) mg/dL Glucose 132 H 183 H (70-105) mg/dL Calcium 10.0 9.6 (8.6-10.3) mg/dL Adrenal panel 05/11/17 05/11/17 Range/Units 05:50 22:42 Sodium 137 134 L (136-145) mEq/L Potassium 4.4 3.6 (3.5-5.1) mEq/L Chloride 102 99 (98-107) mEq/L Carbon Dioxide 29 23 (23-29) mEq/L BUN 19 24 H (6-20) mg/dL Creatinine 0.89 0.98 (0.70-1.30) mg/dL Glucose 132 H 183 H (70-105) mg/dL Calcium 10.0 9.6 (8.6-10.3) mg/dL Total Bilirubin 0.3 (0.3-1.0) mg/dL AST 24 (13-39) Units/L ALT 69 H (7-52) Units/L Alkaline Phosphatase 82 (34-104) Units/L Albumin 4.2 (3.5-5.7) g/dL All other labs normal. - Imaging Chest x-ray: report reviewed, image reviewed Abdominal x-ray: report reviewed, image reviewed Consult Discharge Plan - Plan Referrals: NONE,PCP [Primary Care Provider] -
[2017-05-12] MEDS: Fluconazole 400 MG/200 ML 400 MG/200 ML BAG IVPB SCH ×3 (02:48→09:35)
[2017-05-12] MEDS ORDERED: *HR* Succinylcholine 200 MG/10 ML VIAL IVP ONE (02:51)
[2017-05-12] MEDS ORDERED: *HR* Propofol 200 MG/20 ML VIAL IVP ONE (02:51)
[2017-05-12] MEDS ORDERED: Lidocaine -MPF 4% 5 ML AMPUL ONE (02:51)
[2017-05-12] MEDS ORDERED: *HR* Midazolam HCl 2 MG/2 ML VIAL ONE (02:51)
[2017-05-12] MEDS ORDERED: Lidocaine -MPF 2% 2 ML VIAL ONE (02:51)
[2017-05-12] MEDS ORDERED: *HR* FentaNYL (PF) 100 MCG/2 ML VIAL ONE (02:51)
[2017-05-12] MEDS ORDERED: *HR* Rocuronium Bromide 50 MG/5 ML VIAL ONE (02:51)
[2017-05-12] MEDS ORDERED: CloNIDine Patch 0.1 MG PATCH (WEEKLY) ONE (02:59)
[2017-05-12] MEDS ORDERED: *HR* FentaNYL PATCH 50 MCG PATCH TD ONE (02:59)
[2017-05-12] MEDS: Pantoprazole 40 MG in 0.9 % Sodium Chloride Mini Bag 100 ML IVC SCH ×5 (03:00→20:53)
[2017-05-12] MEDS ORDERED: Piperacillin/Tazobactam 3.375 GM in 0.9 % Sodium Chloride Mini Bag 100 ML IVPB SCH (03:00)
[2017-05-12] MEDS ORDERED: Acetaminophen IV 1,000 MG/100 ML INFUS..BTL ONE (03:00)
[2017-05-12] MEDS ORDERED: *HR* Magnesium Sulfate 1 GM/2 ML VIAL ONE (03:47)
[2017-05-12] MEDS ORDERED: Ondansetron 4 MG/2 ML VIAL ONE (04:24)
[2017-05-12] MEDS ORDERED: Dexamethasone 4 MG/ML VIAL ONE (04:24)
--- NOTE | 2017-05-12 05:47 | Operative Note ---
Date of procedure: 05/12/17 Pre-op diagnosis: perforated duodenal ulcer Post-op diagnosis: same Procedure: exploratory laparotomy; placement of RUQ drain Implants: 19fr ankita drain Complications: none Anesthesia: GETA Local Anesthetics: 0.5% Sensorcaine HCL SubQ (cc) Surgeon: Curtis Delcid Was there an education administrative assistant present: Yes Protective Signal Operations Supervisor: Agustina Licona Estimated blood loss (cc): 50 Specimen: none Condition: stable Disposition: PACU Procedure in Detail: Patient was brought into the operating room suite. Placed in the supine position. Mechanical DVT prophylaxis was placed. Preoperative antibiotics were given. The patient was prepped and draped in the usual fashion. A time out was held identifying correct patient, pathology, physician and procedure. I created a midline incision and, using tension-countertension and the electocautery to enter into the abdomen. Upon entry into the abdomen there was an efflux of turbid fluid. I retracted the abdominal wall and noted the turbid fluid coming from the right upper quadrant. I investigate further beginning with the stomach. I noted the OG tube was in the appropriate position. I then followed towards the pylorus. I noted that distal to the pylorus there were adhesions between the pylorus and the duodenum to the liver. I also noted omentum along the top of the duodenum that was also adhered to the liver. At this point I occluded the bowel distal to the area of possible perforation and had anesthesia insufflate the stomach via the OG tube there were no evidence of bubbles. I did this several times with the same result. I then placed a drain near the liver bed where the duodenum was adhered to the liver. I then closed the fascia with running #1 PDS; I closed the deep dermal layer with a vicryl and used the skin stapler to close. I used a prolene suture to secure the drain. The patient tolerated the procedure well. he was then escorted to ICU in stable condition.
[2017-05-12 06:15] LABS: Basophils % 0.2 %; Hematocrit 42.7 % (37.5-50.1); Hemoglobin 14.1 g/dL (12.9-16.9); Immature Granulocytes % 2.7 % (0-4); Lymphocytes % 4.6 %; Mean Corpuscular Hemoglobin 28.8 pg (28.0-33.3); Mean Corpuscular Volume 87.3 fL (83.0-100.0); Mean Platelet Volume 9.4 fL (9.4-12.4); Monocytes # 1.5 K/mcL (0.0-1.3); Monocytes % 7.2 %; Platelet Count 281 K/mcL (140-400); Red Blood Count 4.89 M/mcL (4.19-5.50); Red Cell Distribution Width 15.4 % (11.5-14.5); Segmented Neutrophils % 85.3 %
[2017-05-12] MEDS: methylPREDNISolone 125 MG/2 ML VIAL IVP SCH ×3 (06:19→18:08)
[2017-05-12 06:41] LABS: BUN/Creatinine Ratio 25 (6-26); Blood Urea Nitrogen 25 mg/dL (6-20); Calcium 8.9 mg/dL (8.6-10.3); Carbon Dioxide 25 mEq/L (23-29); Chloride 103 mEq/L (98-107); Glucose 136 mg/dL (70-105); Osmolality,Calculated 286 (280-300); Potassium 4.7 mEq/L (3.5-5.1); Sodium 135 mEq/L (136-145); eGFR For African Americans > 60 (> 60); eGFR For Non-African Americans > 60 (> 60)
[2017-05-12] MEDS ORDERED: Nitroglycerin 0.4 MG TAB.SUBL SL PRN (07:06)
[2017-05-12] MEDS ORDERED: Naloxone 0.4 MG/ML INJ IVP PRN (07:06)
[2017-05-12] MEDS ORDERED: Ondansetron ODT 4 MG TAB.RAPDIS SL PRN (07:06)
[2017-05-12] MEDS: Budesonide/Formoterol 80/4.5 MDI IH SCH ×2 (07:24→19:48)
[2017-05-12] MEDS ORDERED: *HR* HYDROmorphone 20 MG/20 ML PCA IVC PRN (08:09)
[2017-05-12] MEDS ORDERED: 0.9 % Sodium Chloride 1,000 ML IVC SCH (08:45)
[2017-05-12] MEDS: Piperacillin/Tazobactam 3.375 GM in 0.9 % Sodium Chloride Mini Bag 100 ML IVPB SCH ×2 (11:05→19:31)
[2017-05-12] MEDS ORDERED: CloNIDine Patch 0.1 MG PATCH (WEEKLY) TD SCH (11:45)
--- NOTE | 2017-05-12 12:18 | General Surgery Progress Note ---
<Aide Starr - Last Filed: 05/12/17 12:16> Date of Encounter: 05/12/17 Time of Encounter: 12:18 - Assessment and Plan (1) Perforated duodenal ulcer Current Visit: Yes Status: Acute 56-year-old male with duodenal ulcer s/p EGD and clipping taken POD#1 from exploratory laparotomy with placement of RUQ drain for a perforated duodenal ulcer. -Patient clinically more comfortably this am. Hemodynamically improving. -Keep NPO until bowel function returns. -IVF -Abx, antifungal -PPI ggt -Wound care for daily dry dressing changes. -If patient's condition continues to improve, ok for transfer out of ICU tomorrow. (2) Pneumoperitoneum Current Visit: Yes Status: Acute (3) COPD exacerbation Current Visit: Yes Status: Acute management per primary team. (4) Acute respiratory failure with hypoxia Current Visit: Yes Status: Acute Management per ICU/pulmonology. (5) Tobacco use disorder Current Visit: Yes Status: Acute management per primary team. Subjective Patient reports: no new complaints, still having pain, no flatus, no bowel movement, afebrile, other (Patient hemodynamic status improving with stable vitals overnight.) Objective Vital Signs - Last 8 Hours Temp Pulse Resp BP Pulse Ox 05/12/17 11:59 97.9 F 05/12/17 11:00 80 18 137/84 93 05/12/17 10:00 78 16 139/86 92 05/12/17 09:00 75 16 148/92 92 05/12/17 08:00 79 16 144/100 92 05/12/17 07:33 97.9 F 05/12/17 07:24 14 90 05/12/17 07:00 75 18 151/99 91 05/12/17 06:00 78 18 167/111 98 05/12/17 05:37 79 18 155/103 98 05/12/17 05:28 76 05/12/17 05:15 82 18 155/114 98 05/12/17 05:06 96.3 F L 93 18 160/101 98 Intake and Output 05/11/17 05/12/17 05/12/17 23:59 07:59 15:59 Intake Total 100 / 100 521 / 521 0 / 0 Output Total 650 / 650 Balance 100 / 100 -129 / -129 0 / 0 Intake: IV Fluids 100 / 100 521 / 521 FentaNYL (PF) 1,000 MCG In 0.9 21 / 21 % Sodium Chloride 80 ML @ 25 MCG/HR 2.5 mls/hr IVC CONT [facility] Rx#:[id number] Protonix 40 MG In 0.9 % Sodium 100 / 100 100 / 100 Chloride (Mini-Bag +) 100 ML @ 20 mls/hr IVC .Q5H [facility] Rx#: [id number] Diflucan Premix 400 MG/200 ML 200 / 200 400 mg In 200 ml @ 200 mls/hr IVPB DAILY [facility] Rx#:[id number] Flagyl Premix 500 MG/100 ML 500 100 / 100 mg In 100 ml @ 100 mls/hr IVPB Q8HR [facility] Rx#:[id number] Zosyn 3.375 GM In 0.9 % Sodium 100 / 100 Chloride (Mini-Bag +) 100 ML @ 25 mls/hr IVPB Q8H [facility] Rx#: [id number] Oral 0 / 0 0 / 0 Output: Estimated Blood Loss 50 / 50 Urine Amount (Catheter) 350 / 350 Catheter 250 / 250 Other: # Voids 2 Blood Glucose* 117 - General physical appearance well developed, other (Oxygen facemask) - Eyes normal ocular movement - Neck Neck exam: trachea midline - Respiratory normal expansion, other (decreased breath sounds bilaterally) wheezing: bilateral - Cardiovascular Cardiovascular exam: Present: RRR, no murmurs/rubs/gallops - Abdomen Abdomen: Present: bowel sounds present (hypoactive bowel sounds), soft. Absent : guarding, rebound, rigid Hernia: none - Incision Incision: Present: clean and dry, intact (ETHAN drain with serosanguinous output) - Integumentary no rash - Labs 05/12/17 05:51 05/12/17 05:51 Diabetes panel 05/11/17 05/12/17 Range/Units 22:42 05:51 Sodium 134 L 135 L (136-145) mEq/L Potassium 3.6 4.7 D (3.5-5.1) mEq/L Chloride 99 103 (98-107) mEq/L Carbon Dioxide 23 25 (23-29) mEq/L BUN 24 H 25 H (6-20) mg/dL Creatinine 0.98 1.00 (0.70-1.30) mg/dL Glucose 183 H 136 H (70-105) mg/dL Calcium 9.6 8.9 (8.6-10.3) mg/dL AST 24 (13-39) Units/L ALT 69 H (7-52) Units/L Alkaline Phosphatase 82 (34-104) Units/L Albumin 4.2 (3.5-5.7) g/dL Calcium panel 05/11/17 05/12/17 Range/Units 22:42 05:51 Calcium 9.6 8.9 (8.6-10.3) mg/dL Albumin 4.2 (3.5-5.7) g/dL Pituitary panel 05/11/17 05/12/17 Range/Units 22:42 05:51 Sodium 134 L 135 L (136-145) mEq/L Potassium 3.6 4.7 D (3.5-5.1) mEq/L Chloride 99 103 (98-107) mEq/L Carbon Dioxide 23 25 (23-29) mEq/L BUN 24 H 25 H (6-20) mg/dL Creatinine 0.98 1.00 (0.70-1.30) mg/dL Glucose 183 H 136 H (70-105) mg/dL Calcium 9.6 8.9 (8.6-10.3) mg/dL Adrenal panel 05/11/17 05/12/17 Range/Units 22:42 05:51 Sodium 134 L 135 L (136-145) mEq/L Potassium 3.6 4.7 D (3.5-5.1) mEq/L Chloride 99 103 (98-107) mEq/L Carbon Dioxide 23 25 (23-29) mEq/L BUN 24 H 25 H (6-20) mg/dL Creatinine 0.98 1.00 (0.70-1.30) mg/dL Glucose 183 H 136 H (70-105) mg/dL Calcium 9.6 8.9 (8.6-10.3) mg/dL Total Bilirubin 0.3 (0.3-1.0) mg/dL AST 24 (13-39) Units/L ALT 69 H (7-52) Units/L Alkaline Phosphatase 82 (34-104) Units/L Albumin 4.2 (3.5-5.7) g/dL Consult Discharge Plan - Plan Referrals: NONE,PCP [Primary Care Provider] - <Curtis Delcid - Last Filed: 05/13/17 11:21> Date of Encounter: 05/13/17 - Assessment and Plan (1) Pneumoperitoneum Current Visit: Yes Status: Acute Objective Vital Signs - Last 8 Hours Temp Pulse Resp BP Pulse Ox 05/13/17 10:00 103 16 146/88 91 05/13/17 09:00 97 18 139/99 92 05/13/17 08:24 98.4 F 05/13/17 08:05 16 91 05/13/17 08:00 101 16 144/92 91 05/13/17 07:00 80 18 147/92 94 05/13/17 06:00 85 22 126/76 95 05/13/17 05:00 88 28 133/86 94 05/13/17 04:00 80 26 103/90 94 05/13/17 03:59 97.7 F 05/13/17 03:33 80 Intake and Output 05/12/17 05/13/17 05/13/17 23:59 07:59 15:59 Intake Total 300 / 300 200 / 200 311 / 311 Output Total 950 / 950 300 / 300 565 / 565 Balance -650 / -650 -100 / -100 -254 / -254 Intake: IV Fluids 300 / 300 200 / 200 311 / 311 0.9 % Sodium Chloride 1,000 ML 311 / 311 @ 25 mls/hr IVC .Q24H [facility] Rx#: [id number] Protonix 40 MG In 0.9 % Sodium 100 / 100 200 / 200 Chloride (Mini-Bag +) 100 ML @ 20 mls/hr IVC .Q5H [facility] Rx#: [id number] Zosyn 3.375 GM In 0.9 % Sodium 200 / 200 Chloride (Mini-Bag +) 100 ML @ 25 mls/hr IVPB Q8H [facility] Rx#: [id number] Output: Catheter 900 / 900 300 / 300 550 / 550 Urethral (Sow) 150 / 150 Wound Drainage 50 / 50 15 / 15 Right Upper Abdomen 50 / 50 15 / 15 Other: Weight 115.1 kg Patient Weight 05/13/17 23:59 Weight 115.1 kg - Labs 05/13/17 03:49 05/13/17 03:49 Diabetes panel 05/13/17 Range/Units 03:49 Sodium 136 (136-145) mEq/L Potassium 4.4 (3.5-5.1) mEq/L Chloride 103 (98-107) mEq/L Carbon Dioxide 28 (23-29) mEq/L BUN 23 H (6-20) mg/dL Creatinine 0.91 (0.70-1.30) mg/dL Glucose 140 H (70-105) mg/dL Calcium 8.2 L (8.6-10.3) mg/dL Calcium panel 05/13/17 Range/Units 03:49 Calcium 8.2 L (8.6-10.3) mg/dL Pituitary panel 05/13/17 Range/Units 03:49 Sodium 136 (136-145) mEq/L Potassium 4.4 (3.5-5.1) mEq/L Chloride 103 (98-107) mEq/L Carbon Dioxide 28 (23-29) mEq/L BUN 23 H (6-20) mg/dL Creatinine 0.91 (0.70-1.30) mg/dL Glucose 140 H (70-105) mg/dL Calcium 8.2 L (8.6-10.3) mg/dL Adrenal panel 05/13/17 Range/Units 03:49 Sodium 136 (136-145) mEq/L Potassium 4.4 (3.5-5.1) mEq/L Chloride 103 (98-107) mEq/L Carbon Dioxide 28 (23-29) mEq/L BUN 23 H (6-20) mg/dL Creatinine 0.91 (0.70-1.30) mg/dL Glucose 140 H (70-105) mg/dL Calcium 8.2 L (8.6-10.3) mg/dL - Attending Attestation patient seen and examined. i have reviewed all pertinent labs, imaging, and notes, including this one. I agree with the above assessment and plan and wish to add the following... 56M POD #1 s/ ex lap, evaluation for duodenal ulcer with placement of a drain; Afebrile; having abdominal pain, but improved from pre op; good UOP; cont IVF abx and antifungal, cont IV PPI; await return of bowel function; once bowel function has returned, get contrast study prior to diet;
--- NOTE | 2017-05-12 13:58 | Pulmonology Progress Note ---
<Jc Astudillo - Last Filed: 05/12/17 14:15> Date of Encounter: 05/12/17 Time of Encounter: 09:15 Assessment and Plan (1) Acute respiratory failure with hypoxia Current Visit: Yes Status: Acute Acute respiratory failure Secondary to COPD Exacerbation Diastolic CHF without significant fluid overload We will start incentive spirometry (2) COPD exacerbation Current Visit: Yes Status: Acute Duonebs, Albuterol, Symbicort Steroid taper over 2 weeks Patient is on Zosyn day 2 for intra-abdominal process (3) Status post exploratory laparotomy Current Visit: Yes Status: Acute s/p Exploratory Laparotomy Patient had significant pain and air under the diaphragm Dr. Delcid took the patient for Exploratory Laparotomy in the military police officer There was no evidence of perforation Continue Zosyn day 2, 7 day course DESOLDERER (Dilaudid) pump for pain According to surgery, patient can leave ICU after 24hours (4) Lung nodules Current Visit: Yes Status: Acute Will need [address] scan follow up (5) Tobacco use disorder Current Visit: Yes Status: Acute Patient is motivated to stop smoking (6) DVT prophylaxis Current Visit: Yes Status: Acute SCDs Subjective Principal diagnosis: COPD exacerbation Interval history: The patient is doing well post ex lap, he continues to have significant abdominal pain (6/10 on old testament professor pump) in his upper abdomen. He says that he is not having a lot of difficulty breathing, however the pain disincentivizes him from taking deep breaths. He does have midline incision from exlap which is dressed. Objective PUL Vital signs: Last Vital Signs Temp 97.9 F 05/12/17 11:59 Pulse 91 05/12/17 13:00 Resp 18 05/12/17 13:00 BP 127/80 05/12/17 13:00 Pulse Ox 90 05/12/17 13:00 General appearance: no acute distress, asleep Eyes: nonicteric ENT: oropharynx moist Mallampati (class): 2 Neck: supple Effort: normal Auscultation: right: wheezes (questionable wheezes vs bronchial sounds on the Right), bilateral: clear, diminished breath sounds (Poor inspiratory effort secondary to pain) Cardiovascular: regular rate and rhythm Gastrointestinal: tender (LUQ), guarding, other (Midline inscision with bleeding through the dressing. Abdomen is mildly tender to palpation, with firmness and dullness to percussion) Integumentary: normal Extremities: no cyanosis, no edema, no clubbing, pink and warm Musculoskeletal: no deformities normal mental status, non-focal exam mood appropriate, affect normal Results - Laboratory Findings CBC and BMP: 05/12/17 05:51 05/12/17 05:51 PT/INR, D-dimer PT 11.7 Seconds (9.4-12.1) 05/11/17 22:42 D-Dimer 711 ng/mLFEU (0-500) H 05/07/17 20:38 Abnormal lab findings: Abnormal lab results WBC 21.1 K/mcL (4.3-11.1) H 05/12/17 05:51 RDW 15.4 % (11.5-14.5) H 05/12/17 05:51 Neutrophils # 18.0 K/mcL (1.6-8.9) H 05/12/17 05:51 Monocytes # 1.5 K/mcL (0.0-1.3) H 05/12/17 05:51 Nucleated RBCs/100 WBC 0.1 /100 WBC (0) H 05/11/17 22:42 Reactive Lymphocytes Present (Not Present) A 05/11/17 22:42 D-Dimer 711 ng/mLFEU (0-500) H 05/07/17 20:38 Sodium 135 mEq/L (136-145) L 05/12/17 05:51 BUN 25 mg/dL (6-20) H 05/12/17 05:51 Glucose 136 mg/dL (70-105) H 05/12/17 05:51 POC Glucose 117 (58-89) H 05/12/17 01:23 ALT 69 Units/L (7-52) H 05/11/17 22:42 Troponin I 0.04 ng/mL (< 0.04) H* 05/12/17 05:51 LDL Cholesterol, Calc 101 mg/dL (0-99) H 05/08/17 05:54 HDL Cholesterol 39 mg/dL (40-59) L 05/08/17 05:54 - Clinical Findings Intake & Output: Intake & Output 05/11/17 05/12/17 05/12/17 23:59 07:59 15:59 Intake Total 100 / 100 521 / 521 0 / 0 Output Total 650 / 650 Balance 100 / 100 -129 / -129 0 / 0 Consult Discharge Plan - Plan Referrals: NONE,PCP [Primary Care Provider] - <Baron Mahajan - Last Filed: 05/12/17 21:50> Date of Encounter: 05/12/17 Assessment and Plan (1) Acute respiratory failure with hypoxia Current Visit: Yes Status: Acute (2) COPD exacerbation Current Visit: Yes Status: Acute (3) Lung nodules Current Visit: Yes Status: Acute (4) Tobacco use disorder Current Visit: Yes Status: Acute Objective PUL Vital signs: Last Vital Signs Temp 97.9 F 05/12/17 16:10 Pulse 87 05/12/17 18:00 Resp 19 05/12/17 18:00 BP 119/95 05/12/17 18:00 Pulse Ox 92 05/12/17 18:00 Results - Laboratory Findings CBC and BMP: 05/12/17 05:51 05/12/17 05:51 PT/INR, D-dimer PT 11.7 Seconds (9.4-12.1) 05/11/17 22:42 D-Dimer 711 ng/mLFEU (0-500) H 05/07/17 20:38 Abnormal lab findings: Abnormal lab results WBC 21.1 K/mcL (4.3-11.1) H 05/12/17 05:51 RDW 15.4 % (11.5-14.5) H 05/12/17 05:51 Neutrophils # 18.0 K/mcL (1.6-8.9) H 05/12/17 05:51 Monocytes # 1.5 K/mcL (0.0-1.3) H 05/12/17 05:51 Nucleated RBCs/100 WBC 0.1 /100 WBC (0) H 05/11/17 22:42 Reactive Lymphocytes Present (Not Present) A 05/11/17 22:42 D-Dimer 711 ng/mLFEU (0-500) H 05/07/17 20:38 Sodium 135 mEq/L (136-145) L 05/12/17 05:51 BUN 25 mg/dL (6-20) H 05/12/17 05:51 Glucose 136 mg/dL (70-105) H 05/12/17 05:51 POC Glucose 117 (58-89) H 05/12/17 01:23 ALT 69 Units/L (7-52) H 05/11/17 22:42 Troponin I 0.04 ng/mL (< 0.04) H* 05/12/17 05:51 LDL Cholesterol, Calc 101 mg/dL (0-99) H 05/08/17 05:54 HDL Cholesterol 39 mg/dL (40-59) L 05/08/17 05:54 - Clinical Findings Intake & Output: Intake & Output 05/12/17 05/12/17 05/12/17 07:59 15:59 23:59 Intake Total 521 / 521 100 / 100 Output Total 650 / 650 350 / 350 Balance -129 / -129 100 / 100 -350 / -350 - Attending Attestation I saw and evaluated this patient and my medical decision-making was reviewed with the Resident Physician. I agree with the documented findings, disposition and treatment plan as described except to the extent set forth below. We independently had [id number] contact with the patient Patient seen and examined at bedside Labs, radiology, chart personally reviewed. Management was reviewed during multidisciplinary critical care rounds. MOLD OPERATOR:Patient is conscious oriented x 3 Pulm:COPD exacerbation to continue bronchodilators will descalate steroids to 40 mg Q 12 . Patient has bilateral bibasilar atelectasis will need encouragement to do incentive spirometry will give him DESOLDERER pump that will help him to take deep breadths Cards:Diastolic heart failure now hemodynamically stable will start diuresis if the blood pressure stable for 24 hrs FEN-GI:As per surgery patient had laparatomy due to perforated duodenal ulcer . To continue PPI drip . Renal:Labs and output reviewed ID:To cover for intrabdominal infection zosyn and fluconazole Heme/Onc: Endo: Glucose Monitored Integ/MSK: Skin Care per routine ICU Nursing Protocol to prevent ulcers. Lines: All lines examined without evidence of infection : Dispo: High risk for respiratory decompensation CODE:[id number]
--- NOTE | 2017-05-12 20:40 | Anesthesia Evaluation Post Op ---
Date of Encounter: 05/12/17 Time of Encounter: 05:00 - Vital Signs Vital Signs: Vital Signs Temp Pulse Resp BP Pulse Ox 05/12/17 19:52 16 92 05/12/17 19:40 98 05/12/17 18:00 87 19 119/95 92 05/12/17 17:00 86 14 132/84 93 05/12/17 16:10 97.9 F 05/12/17 16:00 77 20 140/95 91 05/12/17 15:53 16 91 05/12/17 15:00 73 16 135/85 93 05/12/17 14:00 92 16 126/105 93 05/12/17 13:00 91 18 127/80 90 05/12/17 12:29 16 89 05/12/17 12:00 76 16 135/86 90 05/12/17 11:59 97.9 F 05/12/17 11:00 80 18 137/84 93 05/12/17 10:00 78 16 139/86 92 05/12/17 09:00 75 16 148/92 92 05/12/17 08:00 79 16 144/100 92 05/12/17 07:33 97.9 F 05/12/17 07:24 14 90 05/12/17 07:00 75 18 151/99 91 05/12/17 06:00 78 18 167/111 98 05/12/17 05:37 79 18 155/103 98 05/12/17 05:28 76 05/12/17 05:15 82 18 155/114 98 05/12/17 05:06 96.3 F L 93 18 160/101 98 05/12/17 03:00 86 18 164/114 94 05/12/17 02:00 96 30 176/115 93 05/12/17 01:53 92 05/12/17 01:35 97.9 F 92 25 173/110 93 05/12/17 00:49 95 20 166/110 93 05/12/17 00:38 92 22 193/124 95 05/12/17 00:11 91 18 169/118 97 Intake and Output 05/12/17 05/12/17 05/12/17 07:59 15:59 23:59 Intake Total 521 / 521 100 / 100 100 / 100 Output Total 650 / 650 350 / 350 Balance -129 / -129 100 / 100 -250 / -250 Intake: IV Fluids 521 / 521 100 / 100 100 / 100 FentaNYL (PF) 1,000 MCG In 0.9 21 / 21 % Sodium Chloride 80 ML @ 25 MCG/HR 2.5 mls/hr IVC CONT [facility] Rx#:[id number] Protonix 40 MG In 0.9 % Sodium 100 / 100 100 / 100 Chloride (Mini-Bag +) 100 ML @ 20 mls/hr IVC .Q5H [facility] Rx#: [id number] Diflucan Premix 400 MG/200 ML 200 / 200 400 mg In 200 ml @ 200 mls/hr IVPB DAILY [facility] Rx#:[id number] Flagyl Premix 500 MG/100 ML 500 100 / 100 mg In 100 ml @ 100 mls/hr IVPB Q8HR [facility] Rx#:[id number] Zosyn 3.375 GM In 0.9 % Sodium 100 / 100 100 / 100 Chloride (Mini-Bag +) 100 ML @ 25 mls/hr IVPB Q8H [facility] Rx#: [id number] Oral 0 / 0 0 / 0 Output: Estimated Blood Loss 50 / 50 Urine Amount (Catheter) 350 / 350 Catheter 250 / 250 300 / 300 Wound Drainage 50 / 50 Right Upper Abdomen 50 / 50 Other: Blood Glucose* 117 - Lungs Lungs: Clear Ascult./Percussion (diminished at baseline) - Airway Airway: Non-obstructed - Cardiovascular Regular Rate - Mental Status Mental Status: Alert & Oriented, Answers Appropriately, Asleep with brisk response to light stimulation - Pain Pain Scale: 2 Pain Scale used: Souza-Ramirez (Faces) - Nausea Vomiting Nausea Vomiting: Not Present - Hydration Hydration: NPO, Sow catheter - Discharge PostOp Status: Transfer Patient to floor Anes Supervising Prov Stmt: Pt seen/evaluated, VSS, transported to ICU#11 uneventfully, report given. - MD Rosina
[2017-05-13] MEDS: Pantoprazole 40 MG in 0.9 % Sodium Chloride Mini Bag 100 ML IVC SCH ×5 (01:32→21:59)
[2017-05-13] MEDS: Piperacillin/Tazobactam 3.375 GM in 0.9 % Sodium Chloride Mini Bag 100 ML IVPB SCH ×3 (02:27→17:47)
[2017-05-13] MEDS: Ipratropium/Albuterol Neb 3 ML IH SCH ×6 (03:41→20:48)
[2017-05-13 04:13] LABS: Basophils % 0.1 %; Hematocrit 38.5 % (37.5-50.1); Hemoglobin 12.8 g/dL (12.9-16.9); Immature Granulocytes % 1.8 % (0-4); Lymphocytes # 0.8 K/mcL (0.6-4.6); Lymphocytes % 5.2 %; Mean Corpuscular HGB Conc 33.2 g/dL (31.6-35.5); Mean Corpuscular Hemoglobin 28.8 pg (28.0-33.3); Mean Corpuscular Volume 86.5 fL (83.0-100.0); Mean Platelet Volume 9.4 fL (9.4-12.4); Monocytes # 0.8 K/mcL (0.0-1.3); Monocytes % 5.3 %; Neutrophils # 13.4 K/mcL (1.6-8.9); Platelet Count 255 K/mcL (140-400); Red Blood Count 4.45 M/mcL (4.19-5.50); Red Cell Distribution Width 15.3 % (11.5-14.5); Segmented Neutrophils % 87.6 %
[2017-05-13 04:40] LABS: BUN/Creatinine Ratio 25 (6-26); Blood Urea Nitrogen 23 mg/dL (6-20); Calcium 8.2 mg/dL (8.6-10.3); Carbon Dioxide 28 mEq/L (23-29); Chloride 103 mEq/L (98-107); Glucose 140 mg/dL (70-105); Osmolality,Calculated 288 (280-300); Potassium 4.4 mEq/L (3.5-5.1); Sodium 136 mEq/L (136-145); eGFR For African Americans > 60 (> 60); eGFR For Non-African Americans > 60 (> 60)
[2017-05-13] MEDS ORDERED: MethylPREDNISolone 40 MG/ML VIAL IVP SCH (06:00)
[2017-05-13] MEDS ORDERED: Calcium Chloride 1,000 MG in 0.9 % Sodium Chloride 100 ML IVPB ONE (07:22)
[2017-05-13] MEDS: Budesonide/Formoterol 80/4.5 MDI IH SCH ×2 (08:05→20:49)
[2017-05-13] MEDS ORDERED: *HR* OxyCODONE/APAP 5/325 TABLET PO PRN (08:07)
[2017-05-13] MEDS: Fluconazole 400 MG/200 ML 400 MG/200 ML BAG IVPB SCH (08:31)
[2017-05-13] MEDS ORDERED: *HR* FentaNYL (PF) 100 MCG/2 ML VIAL IVP PRN (08:40)
[2017-05-13] MEDS ORDERED: Furosemide 20 MG/2 ML VIAL IVP ONE (08:53)
--- NOTE | 2017-05-13 10:02 | Pulmonology Progress Note ---
<Jc Astudillo - Last Filed: 05/13/17 09:57> Date of Encounter: 05/13/17 Time of Encounter: 08:55 Assessment and Plan (1) Acute respiratory failure with hypoxia Current Visit: Yes Status: Acute Acute respiratory failure, improved Secondary to COPD Exacerbation Diastolic CHF without significant fluid overload We will continue incentive spirometry (2) COPD exacerbation Current Visit: Yes Status: Acute Duonebs, Albuterol, Symbicort Steroid taper over 2 weeks Patient is on Zosyn day 3 for intra-abdominal process (3) Status post exploratory laparotomy Current Visit: Yes Status: Acute s/p Exploratory Laparotomy Patient had significant pain and air under the diaphragm Dr. Delcid took the patient for Exploratory Laparotomy in the broom builder There was no evidence of perforation Continue Zosyn day 3, 7 day course D/C Dilaudid pump, start PO Pain meds Patient is prepared to transfer to step down (4) Lung nodules Current Visit: Yes Status: Acute Will need [address] scan follow up (5) Tobacco use disorder Current Visit: Yes Status: Acute Patient is motivated to stop smoking (6) DVT prophylaxis Current Visit: Yes Status: Acute SCDs/SQ Heparin Subjective Principal diagnosis: COPD exacerbation Interval history: The patient is doing well post ex lap, he continues to have significant abdominal pain. He has been transitioned from TICKET SALES SUPERVISOR pump to PO pain meds which have been very effective for him. He says that he feels much better than he did previously. He does not feel that his breathing is bad. Objective PUL Vital signs: Last Vital Signs Temp 98.4 F 05/13/17 08:24 Pulse 93 05/13/17 07:00 Resp 16 05/13/17 08:05 BP 138/90 05/13/17 07:00 Pulse Ox 91 05/13/17 08:05 General appearance: no acute distress Eyes: nonicteric ENT: oropharynx moist Mallampati (class): 2 Neck: supple Effort: normal Auscultation: bilateral: diminished breath sounds (poor respiratory effort 2/2 pain), wheezes (scattered expiratory wheezes) Cardiovascular: regular rate and rhythm Gastrointestinal: normoactive bowel sounds, soft, tender, guarding (voluntary) Integumentary: normal Extremities: no cyanosis, no edema, no clubbing Musculoskeletal: no deformities normal mental status, non-focal exam, pupils equal and round mood appropriate, affect normal Results - Laboratory Findings CBC and BMP: 05/13/17 03:49 05/13/17 03:49 PT/INR, D-dimer PT 11.7 Seconds (9.4-12.1) 05/11/17 22:42 D-Dimer 711 ng/mLFEU (0-500) H 05/07/17 20:38 Abnormal lab findings: Abnormal lab results WBC 15.3 K/mcL (4.3-11.1) H 05/13/17 03:49 Hgb 12.8 g/dL (12.9-16.9) L 05/13/17 03:49 RDW 15.3 % (11.5-14.5) H 05/13/17 03:49 Neutrophils # 13.4 K/mcL (1.6-8.9) H 05/13/17 03:49 Nucleated RBCs/100 WBC 0.1 /100 WBC (0) H 05/11/17 22:42 Reactive Lymphocytes Present (Not Present) A 05/11/17 22:42 D-Dimer 711 ng/mLFEU (0-500) H 05/07/17 20:38 BUN 23 mg/dL (6-20) H 05/13/17 03:49 Glucose 140 mg/dL (70-105) H 05/13/17 03:49 POC Glucose 117 (58-89) H 05/12/17 01:23 Calcium 8.2 mg/dL (8.6-10.3) L 05/13/17 03:49 ALT 69 Units/L (7-52) H 05/11/17 22:42 Troponin I 0.04 ng/mL (< 0.04) H* 05/12/17 05:51 LDL Cholesterol, Calc 101 mg/dL (0-99) H 05/08/17 05:54 HDL Cholesterol 39 mg/dL (40-59) L 05/08/17 05:54 - Microbiology Findings Microbiology Findings: Microbiology, Last 48 Hours 05/11/17 22:42 Blood Culture - Preliminary Peripheral Venipuncture No growth. 05/11/17 22:42 Blood Culture - Preliminary Peripheral Venipuncture No growth. - Clinical Findings Intake & Output: Intake & Output 05/12/17 05/13/17 05/13/17 23:59 07:59 15:59 Intake Total 300 / 300 200 / 200 311 / 311 Output Total 950 / 950 300 / 300 415 / 415 Balance -650 / -650 -100 / -100 -104 / -104 Weight 115.1 kg - VTE Documentation of Mechanical Device: Intermittent pneumatic compression device Consult Discharge Plan - Plan Referrals: NONE,PCP [Primary Care Provider] - <Baron Mahajan - Last Filed: 05/13/17 22:00> Date of Encounter: 05/13/17 Assessment and Plan (1) Acute respiratory failure with hypoxia Current Visit: Yes Status: Acute (2) COPD exacerbation Current Visit: Yes Status: Acute (3) Lung nodules Current Visit: Yes Status: Acute (4) Tobacco use disorder Current Visit: Yes Status: Acute Objective PUL Vital signs: Last Vital Signs Temp 97.8 F 05/13/17 20:16 Pulse 92 05/13/17 20:16 Resp 16 05/13/17 20:50 BP 191/113 05/13/17 20:16 Pulse Ox 93 05/13/17 20:50 Results - Laboratory Findings CBC and BMP: 05/13/17 03:49 05/13/17 03:49 PT/INR, D-dimer PT 11.7 Seconds (9.4-12.1) 05/11/17 22:42 D-Dimer 711 ng/mLFEU (0-500) H 05/07/17 20:38 Abnormal lab findings: Abnormal lab results WBC 15.3 K/mcL (4.3-11.1) H 05/13/17 03:49 Hgb 12.8 g/dL (12.9-16.9) L 05/13/17 03:49 RDW 15.3 % (11.5-14.5) H 05/13/17 03:49 Neutrophils # 13.4 K/mcL (1.6-8.9) H 05/13/17 03:49 Nucleated RBCs/100 WBC 0.1 /100 WBC (0) H 05/11/17 22:42 Reactive Lymphocytes Present (Not Present) A 05/11/17 22:42 D-Dimer 711 ng/mLFEU (0-500) H 05/07/17 20:38 BUN 23 mg/dL (6-20) H 05/13/17 03:49 Glucose 140 mg/dL (70-105) H 05/13/17 03:49 POC Glucose 117 (58-89) H 05/12/17 01:23 Calcium 8.2 mg/dL (8.6-10.3) L 05/13/17 03:49 ALT 69 Units/L (7-52) H 05/11/17 22:42 Troponin I 0.04 ng/mL (< 0.04) H* 05/12/17 05:51 LDL Cholesterol, Calc 101 mg/dL (0-99) H 05/08/17 05:54 HDL Cholesterol 39 mg/dL (40-59) L 05/08/17 05:54 - Microbiology Findings Microbiology Findings: Microbiology, Last 48 Hours 05/11/17 22:42 Blood Culture - Preliminary Peripheral Venipuncture No growth. 05/11/17 22:42 Blood Culture - Preliminary Peripheral Venipuncture No growth. - Clinical Findings Intake & Output: Intake & Output 05/13/17 05/13/17 05/13/17 07:59 15:59 23:59 Intake Total 200 / 200 551 / 551 510 / 510 Output Total 300 / 300 565 / 565 355 / 355 Balance -100 / -100 -14 / -14 155 / 155 Weight 115.1 kg - Attending Attestation - Attending Attestation I saw and evaluated this patient and my medical decision-making was reviewed with the Resident Physician. I agree with the documented findings, disposition and treatment plan as described except to the extent set forth below. We independently had [id number] contact with the patient Patient seen and examined at bedside Labs, radiology, chart personally reviewed. Management was reviewed during multidisciplinary critical care rounds. FUNERAL HOME ASSOCIATE:Patient is conscious oriented x 3 Pulm:COPD exacerbation to continue bronchodilators will descalate steroids to 40 mg Q 12 . Patient has bilateral bibasilar atelectasis will need encouragement to do incentive spirometry will give him TICKET SALES SUPERVISOR pump that will help him to take deep breadths 05/13 The main intervention mobilization incentive spirometry Cards:Diastolic heart failure now hemodynamically stable will start on gentle diuresis FEN-GI:As per surgery patient had laparatomy due to perforated duodenal ulcer . To continue PPI drip . Renal:Labs and output reviewed ID:To cover for intrabdominal infection zosyn and fluconazole Heme/Onc:DVT prophylaxis Endo: Glucose Monitored Integ/MSK: Skin Care per routine ICU Nursing Protocol to prevent ulcers. Lines: All lines examined without evidence of infection : Dispo: High risk for respiratory decompensation CODE:[id number]
[2017-05-13] MEDS ORDERED: Ondansetron ODT 4 MG TAB.RAPDIS SL PRN (10:52)
[2017-05-13] MEDS ORDERED: Nitroglycerin 0.4 MG TAB.SUBL SL PRN (10:52)
[2017-05-13] MEDS ORDERED: Naloxone 0.4 MG/ML INJ IVP PRN (10:52)
[2017-05-13] MEDS: *HR* OxyCODONE/APAP 5/325 TABLET PO SCH ×4 (11:46→23:44)
[2017-05-13] MEDS ORDERED: *HR* OxyCODONE/APAP 5/325 TABLET PO SCH (12:00)
--- NOTE | 2017-05-13 12:31 | Electrocardiograph Report ---
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
[2017-05-13] MEDS: *HR* FentaNYL (PF) 100 MCG/2 ML VIAL IVP PRN ×3 (14:44→21:58)
--- NOTE | 2017-05-13 15:54 | General Surgery Progress Note ---
Date of Encounter: 05/13/17 Time of Encounter: 12:20 - Assessment and Plan (1) Pneumoperitoneum Current Visit: Yes Status: Acute (2) Perforated duodenal ulcer Current Visit: Yes Status: Acute (3) Status post exploratory laparotomy Current Visit: Yes Status: Acute patient is only 1.5 day postop from an ex lap from a presumed perforated duodenal ulcer as evident by free air on CXR after EGD is a little premature to have patient on regular diet will make npo and perform UGI if UGI negative will allow clears on PPI therapy, start carafate as well Subjective Patient reports: no new complaints, still having pain, pain is less, tolerating a regular diet Objective Vital Signs - Last 8 Hours Temp Pulse Resp BP Pulse Ox 05/13/17 12:37 98.1 F 05/13/17 11:58 98.1 F 99 17 139/93 91 05/13/17 10:00 103 16 146/88 91 05/13/17 09:00 97 18 139/99 92 05/13/17 08:24 98.4 F 05/13/17 08:05 16 91 05/13/17 08:00 101 16 144/92 91 Intake and Output 05/12/17 05/13/17 05/13/17 23:59 07:59 15:59 Intake Total 300 / 300 200 / 200 551 / 551 Output Total 950 / 950 300 / 300 565 / 565 Balance -650 / -650 -100 / -100 -14 / -14 Intake: IV Fluids 300 / 300 200 / 200 311 / 311 0.9 % Sodium Chloride 1,000 ML 311 / 311 @ 25 mls/hr IVC .Q24H [facility] Rx#: [id number] Protonix 40 MG In 0.9 % Sodium 100 / 100 200 / 200 Chloride (Mini-Bag +) 100 ML @ 20 mls/hr IVC .Q5H [facility] Rx#: [id number] Zosyn 3.375 GM In 0.9 % Sodium 200 / 200 Chloride (Mini-Bag +) 100 ML @ 25 mls/hr IVPB Q8H [facility] Rx#: [id number] Oral 240 / 240 Output: Catheter 900 / 900 300 / 300 550 / 550 Urethral (Sow) 150 / 150 Wound Drainage 50 / 50 15 / 15 Right Upper Abdomen 50 / 50 15 / 15 Other: Meal Breakfast Percent of Meal Consumed 100% Weight 115.1 kg Patient Weight 05/13/17 23:59 Weight 115.1 kg - General physical appearance well developed, well nourished, no distress - Eyes PERRL, normal ocular movement - ENT normal mucosa, normocephalic - Neck Neck exam: trachea midline - Respiratory normal expansion, clear to auscultation - Cardiovascular Cardiovascular exam: Present: RRR - Abdomen Abdomen: Present: bowel sounds present, soft, tender (mid abdomen). Absent: guarding, rebound Additional Comments: ETHAN serosang - Integumentary no rash, no growths - Neurologic CN 2-12 grossly intact - Musculoskeletal normal posture - Psychiatric oriented to time, memory intact - Labs 05/13/17 03:49 05/13/17 03:49 Diabetes panel 05/13/17 Range/Units 03:49 Sodium 136 (136-145) mEq/L Potassium 4.4 (3.5-5.1) mEq/L Chloride 103 (98-107) mEq/L Carbon Dioxide 28 (23-29) mEq/L BUN 23 H (6-20) mg/dL Creatinine 0.91 (0.70-1.30) mg/dL Glucose 140 H (70-105) mg/dL Calcium 8.2 L (8.6-10.3) mg/dL Calcium panel 05/13/17 Range/Units 03:49 Calcium 8.2 L (8.6-10.3) mg/dL Pituitary panel 05/13/17 Range/Units 03:49 Sodium 136 (136-145) mEq/L Potassium 4.4 (3.5-5.1) mEq/L Chloride 103 (98-107) mEq/L Carbon Dioxide 28 (23-29) mEq/L BUN 23 H (6-20) mg/dL Creatinine 0.91 (0.70-1.30) mg/dL Glucose 140 H (70-105) mg/dL Calcium 8.2 L (8.6-10.3) mg/dL Adrenal panel 05/13/17 Range/Units 03:49 Sodium 136 (136-145) mEq/L Potassium 4.4 (3.5-5.1) mEq/L Chloride 103 (98-107) mEq/L Carbon Dioxide 28 (23-29) mEq/L BUN 23 H (6-20) mg/dL Creatinine 0.91 (0.70-1.30) mg/dL Glucose 140 H (70-105) mg/dL Calcium 8.2 L (8.6-10.3) mg/dL - VTE Documentation of Mechanical Device: Intermittent pneumatic compression device Consult Discharge Plan - Plan Referrals: NONE,PCP [Primary Care Provider] -
[2017-05-13] MEDS: MethylPREDNISolone 40 MG/ML VIAL IVP SCH (17:51)
[2017-05-13] MEDS: *HR* Heparin 5,000 UNIT/ML VIAL SQ SCH (17:58)
[2017-05-13] MEDS ORDERED: *HR* Heparin 5,000 UNIT/ML VIAL SQ SCH (18:00)
[2017-05-13] MEDS: Melatonin 3 MG TABLET PO SCH (22:01)
[2017-05-14] MEDS: Ipratropium/Albuterol Neb 3 ML IH SCH ×7 (00:38→23:45)
[2017-05-14 04:02] LABS: Basophils % 0.2 %; Hemoglobin 12.2 g/dL (12.9-16.9); Immature Granulocytes % 3.8 % (0-4); Mean Corpuscular Hemoglobin 28.4 pg (28.0-33.3); Mean Platelet Volume 9.9 fL (9.4-12.4); Monocytes # 0.9 K/mcL (0.0-1.3); Monocytes % 5.7 %; Neutrophils # 13.7 K/mcL (1.6-8.9); Nucleated Red Blood Cells 0.1 /100 WBC (0); Platelet Count 256 K/mcL (140-400); Red Cell Distribution Width 15.2 % (11.5-14.5); Segmented Neutrophils % 84.3 %
[2017-05-14] MEDS: Pantoprazole 40 MG in 0.9 % Sodium Chloride Mini Bag 100 ML IVC SCH ×3 (04:08→14:10)
[2017-05-14] MEDS: Piperacillin/Tazobactam 3.375 GM in 0.9 % Sodium Chloride Mini Bag 100 ML IVPB SCH ×3 (04:09→21:40)
[2017-05-14] MEDS: *HR* OxyCODONE/APAP 5/325 TABLET PO SCH ×2 (04:10→09:10)
[2017-05-14] MEDS: MethylPREDNISolone 40 MG/ML VIAL IVP SCH ×2 (04:11→20:27)
[2017-05-14] MEDS: *HR* Heparin 5,000 UNIT/ML VIAL SQ SCH ×2 (04:11→20:26)
[2017-05-14 04:15] LABS: BUN/Creatinine Ratio 28 (6-26); Blood Urea Nitrogen 24 mg/dL (6-20); Calcium 8.1 mg/dL (8.6-10.3); Carbon Dioxide 29 mEq/L (23-29); Chloride 102 mEq/L (98-107); Glucose 144 mg/dL (70-105); Osmolality,Calculated 287 (280-300); Potassium 3.9 mEq/L (3.5-5.1); Sodium 135 mEq/L (136-145); eGFR For African Americans > 60 (> 60); eGFR For Non-African Americans > 60 (> 60)
[2017-05-14] MEDS: Budesonide/Formoterol 80/4.5 MDI IH SCH ×2 (07:56→20:33)
[2017-05-14] MEDS: Fluconazole 400 MG/200 ML 400 MG/200 ML BAG IVPB SCH (09:11)
[2017-05-14] MEDS: Benzonatate 100 MG CAPSULE PO PRN ×2 (09:43→21:22)
--- NOTE | 2017-05-14 10:36 | General Surgery Progress Note ---
<Aide Starr - Last Filed: 05/14/17 10:34> Date of Encounter: 05/14/17 Time of Encounter: 10:34 - Assessment and Plan (1) Perforated duodenal ulcer Current Visit: Yes Status: Acute 56-year-old male with duodenal ulcer s/p EGD and clipping taken POD#2 from exploratory laparotomy with placement of RUQ drain for a perforated duodenal ulcer. -Patient clinically more comfortably this am. Hemodynamically improving. -Tolerating clears. No nausea or vomiting. Good flatus and bowel sounds. Will advance to full liquid diet. -IVF -Abx, antifungal -PPI ggt -Wound care for daily dry dressing changes. -We will continue to monitor. (2) Pneumoperitoneum Current Visit: Yes Status: Acute (3) COPD exacerbation Current Visit: Yes Status: Acute management per primary team. (4) Acute respiratory failure with hypoxia Current Visit: Yes Status: Resolved Management per ICU/pulmonology. (5) Tobacco use disorder Current Visit: Yes Status: Acute management per primary team. Patient reports cutting down drastically on cigarette consumption. Subjective Patient reports: no new complaints, still having pain, tolerating liquids well, flatus, no bowel movement, afebrile (Patient reports cough, no nausea or vomitting, good flatus. ) Objective Vital Signs - Last 8 Hours Temp Pulse Resp BP Pulse Ox 05/14/17 09:22 98 05/14/17 07:58 16 94 05/14/17 07:02 97.5 F L 68 16 153/89 94 05/14/17 04:25 97.6 F 67 18 141/84 95 Intake and Output 05/13/17 05/14/17 05/14/17 22:59 07:59 15:59 Intake Total 200 / 200 Output Total 600 / 600 Balance -400 / -400 Intake: IV Fluids 200 / 200 Protonix 40 MG In 0.9 % Sodium 100 / 100 Chloride (Mini-Bag +) 100 ML @ 20 mls/hr IVC .Q5H [facility] Rx#: [id number] Zosyn 3.375 GM In 0.9 % Sodium 100 / 100 Chloride (Mini-Bag +) 100 ML @ 25 mls/hr IVPB Q8H [facility] Rx#: [id number] Oral Output: Urine 600 / 600 Wound Drainage Right Upper Abdomen Other: Meal Percent of Meal Consumed - General physical appearance well developed, well nourished, moderate pain - Eyes normal ocular movement - ENT normocephalic, CN 2-12 grossly intact - Neck Neck exam: trachea midline - Respiratory normal expansion, normal respiratory effort wheezing: bilateral - Cardiovascular Cardiovascular exam: Present: RRR, no murmurs/rubs/gallops - Abdomen Abdomen: Present: bowel sounds present, soft. Absent: guarding, rebound, rigid Abdominal Tenderness: diffusely (mild tenderness) Hernia: none - Incision Incision: Present: clean and dry, intact - Integumentary no rash - Neurologic CN 2-12 grossly intact, normal coordination - Musculoskeletal normal posture - Psychiatric oriented to time, oriented to person, oriented to place, speech is normal, memory intact - Labs 05/14/17 01:38 05/14/17 01:38 Diabetes panel 05/14/17 Range/Units 01:38 Sodium 135 L (136-145) mEq/L Potassium 3.9 (3.5-5.1) mEq/L Chloride 102 (98-107) mEq/L Carbon Dioxide 29 (23-29) mEq/L BUN 24 H (6-20) mg/dL Creatinine 0.85 (0.70-1.30) mg/dL Glucose 144 H (70-105) mg/dL Calcium 8.1 L (8.6-10.3) mg/dL Calcium panel 05/14/17 Range/Units 01:38 Calcium 8.1 L (8.6-10.3) mg/dL Pituitary panel 05/14/17 Range/Units 01:38 Sodium 135 L (136-145) mEq/L Potassium 3.9 (3.5-5.1) mEq/L Chloride 102 (98-107) mEq/L Carbon Dioxide 29 (23-29) mEq/L BUN 24 H (6-20) mg/dL Creatinine 0.85 (0.70-1.30) mg/dL Glucose 144 H (70-105) mg/dL Calcium 8.1 L (8.6-10.3) mg/dL Adrenal panel 05/14/17 Range/Units 01:38 Sodium 135 L (136-145) mEq/L Potassium 3.9 (3.5-5.1) mEq/L Chloride 102 (98-107) mEq/L Carbon Dioxide 29 (23-29) mEq/L BUN 24 H (6-20) mg/dL Creatinine 0.85 (0.70-1.30) mg/dL Glucose 144 H (70-105) mg/dL Calcium 8.1 L (8.6-10.3) mg/dL - VTE Documentation of Mechanical Device: Intermittent pneumatic compression device Consult Discharge Plan - Plan Referrals: NONE,PCP [Primary Care Provider] - <Pamela Ramos - Last Filed: 05/14/17 18:00> Date of Encounter: 05/14/17 - Assessment and Plan (1) Perforated duodenal ulcer Current Visit: Yes Status: Acute abdomen seems distended and he states is belching but also passing some flatus obtain KUB continue PPI/carafate ambulate gi/dvt prophylaxis (2) Status post exploratory laparotomy Current Visit: Yes Status: Acute Subjective Patient reports: no new complaints, still having pain, tolerating liquids well, flatus, no bowel movement, afebrile Objective Vital Signs - Last 8 Hours Resp Pulse Ox 05/14/17 16:17 16 95 Intake and Output 05/14/17 05/14/17 05/14/17 07:59 15:59 23:59 Intake Total 100 / 500 100 / 100 Output Total 350 / 1125 Balance -250 / -625 100 / 100 Intake: IV Fluids 100 / 300 100 / 100 Protonix 40 MG In 0.9 % Sodium 100 / 200 Chloride (Mini-Bag +) 100 ML @ 20 mls/hr IVC .Q5H [facility] Rx#: [id number] Zosyn 3.375 GM In 0.9 % Sodium 100 / 100 Chloride (Mini-Bag +) 100 ML @ 25 mls/hr IVPB Q8H [facility] Rx#: [id number] Output: Urine 350 / 1125 Other: # Voids 1 - General physical appearance well developed, well nourished, moderate pain - Eyes PERRL, normal ocular movement - ENT normal mucosa, normocephalic - Neck Neck exam: trachea midline - Respiratory normal expansion, clear to auscultation - Cardiovascular Cardiovascular exam: Present: RRR - Abdomen Abdomen: Present: bowel sounds present (high pitched), soft, tender ( appropriate post op tenderness) - Incision Incision: Present: clean and dry, intact - Integumentary no rash - Neurologic CN 2-12 grossly intact - Musculoskeletal normal posture - Psychiatric oriented to time, oriented to person, oriented to place, speech is normal, memory intact - Labs 05/14/17 01:38 05/14/17 01:38 Short CBC 05/14/17 Range/Units 01:38 WBC 16.3 H (4.3-11.1) K/mcL Hgb 12.2 L (12.9-16.9) g/dL Hct 37.0 L (37.5-50.1) % Plt Count 256 (140-400) K/mcL Neutrophils # 13.7 H (1.6-8.9) K/mcL BMP 05/14/17 Range/Units 01:38 Sodium 135 L (136-145) mEq/L Potassium 3.9 (3.5-5.1) mEq/L Chloride 102 (98-107) mEq/L Carbon Dioxide 29 (23-29) mEq/L BUN 24 H (6-20) mg/dL Creatinine 0.85 (0.70-1.30) mg/dL Glucose 144 H (70-105) mg/dL Calcium 8.1 L (8.6-10.3) mg/dL Vital Signs Temp Pulse Resp BP Pulse Ox 05/14/17 16:17 16 95 05/14/17 11:15 97.6 F 74 16 146/82 97 05/14/17 11:12 16 98 05/14/17 09:22 98 05/14/17 07:58 16 94 05/14/17 07:02 97.5 F L 68 16 153/89 94 05/14/17 04:25 97.6 F 67 18 141/84 95 05/13/17 20:50 16 93 05/13/17 20:16 97.8 F 92 20 191/113 95 05/13/17 17:55 98.0 F 100 16 131/99 93 05/13/17 17:20 18 93 Intake and Output 05/14/17 05/14/17 05/14/17 07:59 15:59 23:59 Intake Total 500 / 500 100 / 100 Output Total 1125 / 1125 Balance -625 / -625 100 / 100 Intake: IV Fluids 500 / 500 100 / 100 Protonix 40 MG In 0.9 % Sodium 200 / 200 Chloride (Mini-Bag +) 100 ML @ 20 mls/hr IVC .Q5H [facility] Rx#: [id number] Diflucan Premix 400 MG/200 ML 200 / 200 400 mg In 200 ml @ 200 mls/hr IVPB DAILY [facility] Rx#:[id number] Zosyn 3.375 GM In 0.9 % Sodium 100 / 100 100 / 100 Chloride (Mini-Bag +) 100 ML @ 25 mls/hr IVPB Q8H [facility] Rx#: [id number] Oral Output: Urine 1125 / 1125 Wound Drainage Right Upper Abdomen Other: # Voids 1 - Attending Attestation I examined this patient and my medical decision-making was reviewed with the Resident Physician. I agree with the documented findings, disposition and treatment plan as described except to the extent set forth below.
[2017-05-14] MEDS: *HR* OxyCODONE/APAP 10/325 TABLET PO PRN ×3 (12:41→21:22)
[2017-05-14] MEDS: Melatonin 3 MG TABLET PO SCH (21:22)
[2017-05-15] MEDS: *HR* OxyCODONE/APAP 10/325 TABLET PO PRN ×5 (01:08→20:50)
[2017-05-15] MEDS: Pantoprazole 40 MG in 0.9 % Sodium Chloride Mini Bag 100 ML IVC SCH ×6 (01:11→22:24)
[2017-05-15] MEDS: Ipratropium/Albuterol Neb 3 ML IH SCH ×6 (04:02→22:35)
[2017-05-15] MEDS: Piperacillin/Tazobactam 3.375 GM in 0.9 % Sodium Chloride Mini Bag 100 ML IVPB SCH ×3 (04:13→18:25)
[2017-05-15 04:43] LABS: Basophils # 0.1 K/mcL (0.0-0.2); Basophils % 0.4 %; Hematocrit 36.6 % (37.5-50.1); Immature Granulocytes % 4.6 % (0-4); Lymphocytes # 1.1 K/mcL (0.6-4.6); Lymphocytes % 7.2 %; Mean Corpuscular HGB Conc 32.8 g/dL (31.6-35.5); Mean Corpuscular Hemoglobin 28.2 pg (28.0-33.3); Mean Corpuscular Volume 86.1 fL (83.0-100.0); Mean Platelet Volume 9.6 fL (9.4-12.4); Monocytes % 6.1 %; Platelet Count 255 K/mcL (140-400); Red Blood Count 4.25 M/mcL (4.19-5.50); Red Cell Distribution Width 15.1 % (11.5-14.5); Segmented Neutrophils % 81.7 %
[2017-05-15 05:04] LABS: BUN/Creatinine Ratio 23 (6-26); Blood Urea Nitrogen 18 mg/dL (6-20); Calcium 8.4 mg/dL (8.6-10.3); Carbon Dioxide 26 mEq/L (23-29); Chloride 102 mEq/L (98-107); Glucose 150 mg/dL (70-105); Osmolality,Calculated 283 (280-300); Potassium 4.4 mEq/L (3.5-5.1); Sodium 134 mEq/L (136-145); eGFR For African Americans > 60 (> 60); eGFR For Non-African Americans > 60 (> 60)
[2017-05-15] MEDS: MethylPREDNISolone 40 MG/ML VIAL IVP SCH (05:47)
[2017-05-15] MEDS: *HR* Heparin 5,000 UNIT/ML VIAL SQ SCH ×2 (05:48→17:18)
[2017-05-15] MEDS: Budesonide/Formoterol 80/4.5 MDI IH SCH ×3 (07:35→22:35)
[2017-05-15] MEDS: Fluconazole 400 MG/200 ML 400 MG/200 ML BAG IVPB SCH (08:45)
--- NOTE | 2017-05-15 10:14 | General Surgery Progress Note ---
<Roseline Blankenship - Last Filed: 05/15/17 10:47> Date of Encounter: 05/15/17 Time of Encounter: 10:12 - Assessment and Plan (1) Status post exploratory laparotomy Current Visit: Yes Status: Acute POD #3 from an ex lap with placement of RUQ drain from a presumed perforated duodenal ulcer as evident by free air on CXR after EGD. -From a surgical standpoint, patient is able to get out of bed with assistance. Good flatus and bowel sounds in all four quadrants with mildly distended abdomen. Surgery recommends that the patient returns to a clear liquid diet only until distention improves and/or he tolerates meals without any nausea and/ or vomiting. -Patient clinically improving and appears comfortable. Patient still complains of Mid-abdominal pain and tenderness. Surgical incision is clean, dry and intact. White blood count is trending down. (WBC 16.3 yesterday and 15.9 today ) -IVF -Abx, antifungal -PPI ggt -Wound care for daily dry dressing changes. -We will continue to monitor. (2) Pneumoperitoneum Current Visit: Yes Status: Acute Repeat KUB xray on 05/14/17 reports reads mild distention of the small bowel and colon. Findings appear to be related to ileus as the contrast from the prior upper GI study has progressed to the colon. (3) Perforated duodenal ulcer Current Visit: Yes Status: Acute (4) COPD exacerbation Current Visit: Yes Status: Acute Management per primary team. Oxygen saturation at 94% on room air. Wheezes heard bilaterally on long auscultation. (5) Acute respiratory failure with hypoxia Current Visit: Yes Status: Resolved Management per pulmonology. Subjective Patient reports: voiding w/o difficulty, afebrile Narrative: The patient was seen and evaluated at bedside this morning. Patient is afebrile appears in no acute distress. Patient is currently on a full liquid diet and admits he is tolerating that while. Patient states he will like his diet to be advanced to. Patient denies any fever or chest pain. Patient admits he is still short of breath and complains of left-sided mid abdominal pain. He describes the pain as sharp and tender to palpation that is worse with movement. Patient stated that he is due for his pain medications. Patient admits flatus but denies any bowel movements. Patient has no other concerns at this time. Objective Vital Signs - Last 8 Hours Temp Pulse Resp BP Pulse Ox 05/15/17 09:02 94 05/15/17 07:38 20 94 05/15/17 06:24 97.5 F L 84 20 151/89 94 05/15/17 04:18 97.6 F 90 18 148/81 94 05/15/17 04:02 18 93 Intake and Output 05/14/17 05/15/17 05/15/17 23:59 07:59 15:59 Intake Total 1160 / 1160 380 / 380 340 / 340 Output Total 290 / 290 1000 / 1000 Balance 870 / 870 -620 / -620 340 / 340 Intake: IV Fluids 200 / 200 200 / 200 100 / 100 Protonix 40 MG In 0.9 % Sodium 100 / 100 100 / 100 Chloride (Mini-Bag +) 100 ML @ 20 mls/hr IVC .Q5H [facility] Rx#: [id number] Zosyn 3.375 GM In 0.9 % Sodium 100 / 100 100 / 100 100 / 100 Chloride (Mini-Bag +) 100 ML @ 25 mls/hr IVPB Q8H [facility] Rx#: [id number] Oral 960 / 960 180 / 180 240 / 240 Output: Urine 280 / 280 1000 / 1000 Wound Drainage Right Upper Abdomen Other: Meal Dinner soup, 2 puddings Breakfast Percent of Meal Consumed 95% 100% 100% - General physical appearance well developed, well nourished, no distress - Eyes PERRL, normal ocular movement - ENT normal mucosa - Neck Neck exam: trachea midline - Respiratory normal expansion, normal respiratory effort wheezing: bilateral - Cardiovascular Cardiovascular exam: Present: RRR, no murmurs/rubs/gallops - Abdomen Abdomen: Present: bowel sounds present, soft, distended, tender (Tender to palpation on the left side of the surgical incision.). Absent: guarding, rebound Abdominal Tenderness: diffusely Hernia: none - Incision Incision: Present: clean and dry, intact. Absent: draining, purulent - Integumentary no rash - Neurologic CN 2-12 grossly intact, normal sensation - Psychiatric oriented to time, oriented to person, oriented to place - Labs 05/15/17 03:37 05/15/17 03:37 Diabetes panel 05/15/17 Range/Units 03:37 Sodium 134 L (136-145) mEq/L Potassium 4.4 (3.5-5.1) mEq/L Chloride 102 (98-107) mEq/L Carbon Dioxide 26 (23-29) mEq/L BUN 18 (6-20) mg/dL Creatinine 0.79 (0.70-1.30) mg/dL Glucose 150 H (70-105) mg/dL Calcium 8.4 L (8.6-10.3) mg/dL Calcium panel 05/15/17 Range/Units 03:37 Calcium 8.4 L (8.6-10.3) mg/dL Pituitary panel 05/15/17 Range/Units 03:37 Sodium 134 L (136-145) mEq/L Potassium 4.4 (3.5-5.1) mEq/L Chloride 102 (98-107) mEq/L Carbon Dioxide 26 (23-29) mEq/L BUN 18 (6-20) mg/dL Creatinine 0.79 (0.70-1.30) mg/dL Glucose 150 H (70-105) mg/dL Calcium 8.4 L (8.6-10.3) mg/dL Adrenal panel 05/15/17 Range/Units 03:37 Sodium 134 L (136-145) mEq/L Potassium 4.4 (3.5-5.1) mEq/L Chloride 102 (98-107) mEq/L Carbon Dioxide 26 (23-29) mEq/L BUN 18 (6-20) mg/dL Creatinine 0.79 (0.70-1.30) mg/dL Glucose 150 H (70-105) mg/dL Calcium 8.4 L (8.6-10.3) mg/dL - VTE Documentation of Mechanical Device: Intermittent pneumatic compression device Consult Discharge Plan - Plan Referrals: NONE,PCP [Primary Care Provider] - <Curtis Delcid - Last Filed: 05/15/17 12:02> Date of Encounter: 05/15/17 - Assessment and Plan (1) Pneumoperitoneum Current Visit: Yes Status: Acute Objective Vital Signs - Last 8 Hours Temp Pulse Resp BP Pulse Ox 05/15/17 10:59 18 95 05/15/17 09:02 94 05/15/17 07:38 20 94 05/15/17 06:24 97.5 F L 84 20 151/89 94 05/15/17 04:18 97.6 F 90 18 148/81 94 05/15/17 04:02 18 93 Intake and Output 05/14/17 05/15/17 05/15/17 23:59 07:59 15:59 Intake Total 1160 / 1160 380 / 380 640 / 640 Output Total 290 / 290 1000 / 1000 20 / 20 Balance 870 / 870 -620 / -620 620 / 620 Intake: IV Fluids 200 / 200 200 / 200 400 / 400 Protonix 40 MG In 0.9 % Sodium 100 / 100 100 / 100 100 / 100 Chloride (Mini-Bag +) 100 ML @ 20 mls/hr IVC .Q5H [facility] Rx#: [id number] Diflucan Premix 400 MG/200 ML 200 / 200 400 mg In 200 ml @ 200 mls/hr IVPB DAILY [facility] Rx#:[id number] Zosyn 3.375 GM In 0.9 % Sodium 100 / 100 100 / 100 100 / 100 Chloride (Mini-Bag +) 100 ML @ 25 mls/hr IVPB Q8H [facility] Rx#: [id number] Oral 960 / 960 180 / 180 240 / 240 Output: Urine 280 / 280 1000 / 1000 Wound Drainage 20 Right Upper Abdomen Other: Meal Dinner soup, 2 puddings Breakfast Percent of Meal Consumed 95% 100% 100% - Labs 05/15/17 03:37 05/15/17 03:37 Diabetes panel 05/15/17 Range/Units 03:37 Sodium 134 L (136-145) mEq/L Potassium 4.4 (3.5-5.1) mEq/L Chloride 102 (98-107) mEq/L Carbon Dioxide 26 (23-29) mEq/L BUN 18 (6-20) mg/dL Creatinine 0.79 (0.70-1.30) mg/dL Glucose 150 H (70-105) mg/dL Calcium 8.4 L (8.6-10.3) mg/dL Calcium panel 05/15/17 Range/Units 03:37 Calcium 8.4 L (8.6-10.3) mg/dL Pituitary panel 05/15/17 Range/Units 03:37 Sodium 134 L (136-145) mEq/L Potassium 4.4 (3.5-5.1) mEq/L Chloride 102 (98-107) mEq/L Carbon Dioxide 26 (23-29) mEq/L BUN 18 (6-20) mg/dL Creatinine 0.79 (0.70-1.30) mg/dL Glucose 150 H (70-105) mg/dL Calcium 8.4 L (8.6-10.3) mg/dL Adrenal panel 05/15/17 Range/Units 03:37 Sodium 134 L (136-145) mEq/L Potassium 4.4 (3.5-5.1) mEq/L Chloride 102 (98-107) mEq/L Carbon Dioxide 26 (23-29) mEq/L BUN 18 (6-20) mg/dL Creatinine 0.79 (0.70-1.30) mg/dL Glucose 150 H (70-105) mg/dL Calcium 8.4 L (8.6-10.3) mg/dL - Attending Attestation I have personally seen and examined the patient. I have reviewed pertinent labs , imaging, progress notes, including this one. I agree with the above assessment and plan and wish to include the following... POD# 3 s/p ex lap, placement of RUQ drain; no leak on UGI; patient with abdominal distension and nausea with current diet; having bowel function; while he may be okay for reg diet, I would recommend not advancing, even backing down to a CLD as he may have an ileus that just needs time to resolve. once he is on a regular diet, I will remove the drain;
[2017-05-15] MEDS: predniSONE 20 MG TABLET PO SCH (17:18)
--- NOTE | 2017-05-15 17:18 | Internal Med Progress Note ---
Date of Encounter: 05/15/17 Time of Encounter: 13:00 - Assessment and plan (1) Perforated duodenal ulcer Current Visit: Yes Status: Acute Assessment and plan: s/p Exp laparotomy Still has ETHAN drainage Surgery following on clear liquid diet (2) COPD exacerbation Current Visit: Yes Status: Acute Assessment and plan: Improving Will switch to PO and tapered dose of steroids Cont empirical abx Levaquin Cont Tessalon Perles, and duo nebs [id number]. O2 as needed to maintain saturations greater than 92% (3) Acute respiratory failure with hypoxia Current Visit: Yes Status: Resolved Assessment and plan: Improved now breathing comfortably on RA (4) CAD (coronary artery disease) Current Visit: Yes Status: Chronic Assessment and plan: Unable to start him on ASA due to his Duodenal ulcer Qualifiers: Coronary Disease-Associated Artery/Lesion type: [place] artery [place] vs. transplanted heart: [place] heart Associated angina: without angina Qualified Code(s): I25.10 - Atherosclerotic heart disease of [place] coronary artery without angina pectoris (5) Chest pain Current Visit: Yes Status: Acute Assessment and plan: He did h/o CAD s/p stent he is high risk for ACS too will try to obtain his medical records from [facility] May consider to do a stress test before he get d/c home Qualifiers: Chest pain type: unspecified Qualified Code(s): R07.9 - Chest pain, unspecified (6) Lung nodules Current Visit: Yes Status: Acute Assessment and plan: Need out pt f/u as an out pt Need to quit smoking (7) Status post exploratory laparotomy Current Visit: Yes Status: Acute (8) Tobacco use disorder Current Visit: Yes Status: Acute Assessment and plan: Patient is a current every day smoker. Cessation advised and discussed today again - Subjective Interval history: 56 year old male with past medical history significant for HTN, HLD, CAD s/p stent pt who happened ot have duodenal ulcer, after an attempt to clipping during EGD post procedurally the patient began having exquisite abdominal pain localized to his mid epigastrium. His CT of abd showed perforated duodenal ulcer with pneumo peritoneum. Pt had an exploratory laporotomy on 05/12/17. Today pt is alert, awake and O x 3. Still c/o chronic left chest wall pain. Denied any N/V. Tolerating clear liquid diet well. - Constitutional Vitals: Temp Pulse Resp BP Pulse Ox 98.0 F 83 16 144/83 94 05/15/17 15:09 05/15/17 15:09 05/15/17 15:57 05/15/17 15:09 05/15/17 15:57 General appearance: Present: cooperative, mild distress, A&O X 3, pleasant, answers questions appropriately - Head Head exam: Present: atraumatic, normal inspection - Neck Neck exam general surgery: Present: supple - Respiratory Respiratory exam: Present: decreased breath sounds, wheezes (moderate). Absent : rales, respiratory distress, rhonchi - Cardiovascular Cardiovascular exam: Present: RRR, +S1, +S2. Absent: tachycardia - GI/Abdominal GI/Abdominal exam: Present: normal bowel sounds, soft. Absent: rebound, rigid, tenderness - Extremities Exam Extremities exam: Absent: calf tenderness, pedal edema, tenderness - Back Exam Back exam: Absent: CVA tenderness (L), CVA tenderness (R) - Neurological Exam Neurological exam: Present: alert, oriented X3 - Psychiatric Psychiatric exam: Present: normal affect, normal mood Internal Medicine: Result - Labs CBC & Chem 7: 05/15/17 03:37 05/15/17 03:37 Labs: Short CBC 05/15/17 Range/Units 03:37 WBC 15.9 H (4.3-11.1) K/mcL Hgb 12.0 L (12.9-16.9) g/dL Hct 36.6 L (37.5-50.1) % Plt Count 255 (140-400) K/mcL Neutrophils # 13.0 H (1.6-8.9) K/mcL BMP 05/15/17 03:37 Sodium 134 L Potassium 4.4 Chloride 102 Carbon Dioxide 26 BUN 18 Creatinine 0.79 Glucose 150 H Calcium 8.4 L - ABG Interpretation ABG results: PT/INR, D-dimer PT 11.7 Seconds (9.4-12.1) 05/11/17 22:42 D-Dimer 711 ng/mLFEU (0-500) H 05/07/17 20:38 - Impressions Impressions KUB X-Ray 05/14/17 17:57 IMPRESSION: Mild distention of the small bowel and colon. Findings appear to be related to ileus as the contrast from the prior upper GI study has progressed to the colon. D/ / Wan Madrigal MD / Wan Madrigal MD Interpreting Provider: Wan Madrigal MD - VTE Documentation of Mechanical Device: Intermittent pneumatic compression device Consult Discharge Plan - Plan Referrals: NONE,PCP [Primary Care Provider] -
[2017-05-15] MEDS: Melatonin 3 MG TABLET PO SCH (20:50)
[2017-05-16] MEDS: *HR* OxyCODONE/APAP 10/325 TABLET PO PRN ×4 (01:06→21:50)
[2017-05-16] MEDS: Ipratropium/Albuterol Neb 3 ML IH SCH ×5 (04:24→19:45)
[2017-05-16] MEDS: Pantoprazole 40 MG in 0.9 % Sodium Chloride Mini Bag 100 ML IVC SCH ×2 (05:08→10:19)
[2017-05-16 05:09] LABS: Basophils # 0.1 K/mcL (0.0-0.2); Basophils % 0.4 %; Hematocrit 36.6 % (37.5-50.1); Hemoglobin 12.1 g/dL (12.9-16.9); Immature Granulocytes % 5.7 % (0-4); Lymphocytes # 2.1 K/mcL (0.6-4.6); Lymphocytes % 12.8 %; Mean Corpuscular HGB Conc 33.1 g/dL (31.6-35.5); Mean Corpuscular Hemoglobin 28.2 pg (28.0-33.3); Mean Corpuscular Volume 85.3 fL (83.0-100.0); Mean Platelet Volume 9.3 fL (9.4-12.4); Monocytes % 6.3 %; Neutrophils # 12.2 K/mcL (1.6-8.9); Platelet Count 275 K/mcL (140-400); Red Blood Count 4.29 M/mcL (4.19-5.50); Red Cell Distribution Width 15.1 % (11.5-14.5); Segmented Neutrophils % 74.8 %
[2017-05-16] MEDS: Piperacillin/Tazobactam 3.375 GM in 0.9 % Sodium Chloride Mini Bag 100 ML IVPB SCH ×3 (05:09→21:48)
[2017-05-16] MEDS: *HR* Heparin 5,000 UNIT/ML VIAL SQ SCH ×2 (05:22→16:08)
[2017-05-16 05:26] LABS: BUN/Creatinine Ratio 17 (6-26); Blood Urea Nitrogen 13 mg/dL (6-20); Calcium 8.5 mg/dL (8.6-10.3); Carbon Dioxide 26 mEq/L (23-29); Chloride 103 mEq/L (98-107); Glucose 120 mg/dL (70-105); Osmolality,Calculated 281 (280-300); Potassium 4.1 mEq/L (3.5-5.1); Sodium 135 mEq/L (136-145); eGFR For African Americans > 60 (> 60); eGFR For Non-African Americans > 60 (> 60)
[2017-05-16 06:01] LABS: Platelet Estimate Normal (Normal)
[2017-05-16] MEDS: Budesonide/Formoterol 80/4.5 MDI IH SCH ×2 (07:45→19:51)
--- NOTE | 2017-05-16 09:45 | General Surgery Progress Note ---
<Roseline Blankenship - Last Filed: 05/16/17 09:50> Date of Encounter: 05/16/17 Time of Encounter: 09:30 - Assessment and Plan (1) Status post exploratory laparotomy Current Visit: Yes Status: Acute POD #3 from an ex lap with placement of RUQ drain from a presumed perforated duodenal ulcer as evident by free air on CXR after EGD. -From a surgical standpoint, patient is able to get out of bed with assistance. Good flatus and bowel sounds in all four quadrants with mildly distended abdomen. Surgery recommends that the patient returns to a clear liquid diet only until distention improves and/or he tolerates meals without any nausea and/ or vomiting. If the patient does well with eating, then the patient is able to be discharged from a surgical standpoint. -Patient clinically improving and appears comfortable. Patient still complains of Mid-abdominal pain and tenderness. Surgical incision is clean, dry and intact. -IVF -Abx, antifungal -PPI ggt -Wound care for daily dry dressing changes. -We will continue to monitor. (2) Pneumoperitoneum Current Visit: Yes Status: Acute Repeat KUB xray on 05/14/17 reports reads mild distention of the small bowel and colon. Findings appear to be related to ileus as the contrast from the prior upper GI study has progressed to the colon. (3) Perforated duodenal ulcer Current Visit: Yes Status: Acute (4) COPD exacerbation Current Visit: Yes Status: Acute Management per primary team. Oxygen saturation at 96% on room air. Wheezes heard bilaterally on long auscultation. (5) Acute respiratory failure with hypoxia Current Visit: Yes Status: Resolved Management per pulmonology. Subjective Patient reports: no new complaints, still having pain, flatus, afebrile Narrative: The patient was seen and evaluated at this at this morning. The patient is awake, alert, afebrile, and appears in no acute distress. Patient expresses his frustration and is anxious to return to home. He admits tenderness to palpation in his abdomen but states that it is improved compared to yesterday. Patient admits he is passing gas and having bowel movements but feels like his abdomen is "still bloated". The patient denies any fever, headaches, vision changes, chest pain, shortness of breath, difficulty breathing, diarrhea, blood in his stool, difficulty urinating, blood in his urine, numbness and tingling, and any weaknesses. The patient has no other concerns at this time. Objective Vital Signs - Last 8 Hours Temp Pulse Resp BP Pulse Ox 05/16/17 07:57 97.6 F 78 16 158/95 96 05/16/17 07:45 18 94 05/16/17 03:15 97.6 F 67 16 138/82 94 Intake and Output 05/15/17 05/16/17 05/16/17 23:59 07:59 15:59 Intake Total 880 / 880 340 / 340 600 / 600 Output Total 130 / 130 1680 / 1680 Balance 750 / 750 -1340 / -1340 600 / 600 Intake: IV Fluids 400 / 400 100 / 100 Protonix 40 MG In 0.9 % Sodium 200 / 200 100 / 100 Chloride (Mini-Bag +) 100 ML @ 20 mls/hr IVC .Q5H [facility] Rx#: [id number] Zosyn 3.375 GM In 0.9 % Sodium 200 / 200 Chloride (Mini-Bag +) 100 ML @ 25 mls/hr IVPB Q8H [facility] Rx#: [id number] Oral 480 / 480 240 / 240 600 / 600 Output: Urine 1650 / 1650 Wound Drainage 130 / 130 30 / 30 Right Upper Abdomen 130 / 130 30 / 30 Other: Meal Dinner Breakfast Percent of Meal Consumed 100% 100% # Voids 1 Weight 111.1 kg Patient Weight 05/16/17 23:59 Weight 111.1 kg - General physical appearance well developed, well nourished, no distress - Eyes PERRL, normal ocular movement - ENT normal mucosa - Neck Neck exam: trachea midline - Respiratory normal expansion, normal respiratory effort wheezing: bilateral - Cardiovascular Cardiovascular exam: Present: RRR, no murmurs/rubs/gallops - Abdomen Abdomen: Present: bowel sounds present, soft, tender (Tenderness to palpation near the left side of surgical incision.) Hernia: none - Incision Incision: Present: clean and dry, intact. Absent: draining, purulent - Integumentary no rash - Neurologic CN 2-12 grossly intact, normal sensation - Psychiatric oriented to time, oriented to person, oriented to place - Labs 05/16/17 04:37 05/16/17 04:37 Diabetes panel 05/16/17 Range/Units 04:37 Sodium 135 L (136-145) mEq/L Potassium 4.1 (3.5-5.1) mEq/L Chloride 103 (98-107) mEq/L Carbon Dioxide 26 (23-29) mEq/L BUN 13 (6-20) mg/dL Creatinine 0.76 (0.70-1.30) mg/dL Glucose 120 H (70-105) mg/dL Calcium 8.5 L (8.6-10.3) mg/dL Calcium panel 05/16/17 Range/Units 04:37 Calcium 8.5 L (8.6-10.3) mg/dL Pituitary panel 05/16/17 Range/Units 04:37 Sodium 135 L (136-145) mEq/L Potassium 4.1 (3.5-5.1) mEq/L Chloride 103 (98-107) mEq/L Carbon Dioxide 26 (23-29) mEq/L BUN 13 (6-20) mg/dL Creatinine 0.76 (0.70-1.30) mg/dL Glucose 120 H (70-105) mg/dL Calcium 8.5 L (8.6-10.3) mg/dL Adrenal panel 05/16/17 Range/Units 04:37 Sodium 135 L (136-145) mEq/L Potassium 4.1 (3.5-5.1) mEq/L Chloride 103 (98-107) mEq/L Carbon Dioxide 26 (23-29) mEq/L BUN 13 (6-20) mg/dL Creatinine 0.76 (0.70-1.30) mg/dL Glucose 120 H (70-105) mg/dL Calcium 8.5 L (8.6-10.3) mg/dL - VTE Documentation of Mechanical Device: Intermittent pneumatic compression device Consult Discharge Plan - Plan Referrals: Joselin Andrade, FINAL INSPECTOR SHUTTLE [Advanced Practice Nurse] - (One week after hospital DC for drain check) NONE,PCP [Primary Care Provider] - <Curtis Delcid - Last Filed: 05/16/17 20:20> Date of Encounter: 05/16/17 - Assessment and Plan (1) Pneumoperitoneum Current Visit: Yes Status: Acute Objective Vital Signs - Last 8 Hours Temp Pulse Resp BP Pulse Ox 05/16/17 16:47 16 98 05/16/17 15:58 97.3 F L 91 16 151/88 92 05/16/17 15:12 98.1 F 75 16 148/62 97 Intake and Output 05/16/17 05/16/17 05/16/17 07:59 15:59 23:59 Intake Total 340 / 340 1040 / 1040 600 / 600 Output Total 1680 / 1680 2 / 2 Balance -1340 / -1340 1040 / 1040 598 / 598 Intake: IV Fluids 100 / 100 200 / 200 Protonix 40 MG In 0.9 % Sodium 100 / 100 100 / 100 Chloride (Mini-Bag +) 100 ML @ 20 mls/hr IVC .Q5H [facility] Rx#: [id number] Zosyn 3.375 GM In 0.9 % Sodium 100 / 100 Chloride (Mini-Bag +) 100 ML @ 25 mls/hr IVPB Q8H [facility] Rx#: [id number] Oral 240 / 240 840 / 840 600 / 600 Output: Urine 1650 / 1650 Wound Drainage 2 Right Upper Abdomen 2 Other: Meal Lunch Percent of Meal Consumed 100% 70% Weight 111.1 kg Patient Weight 05/16/17 23:59 Weight 111.1 kg - Labs 05/16/17 04:37 05/16/17 04:37 Diabetes panel 05/16/17 Range/Units 04:37 Sodium 135 L (136-145) mEq/L Potassium 4.1 (3.5-5.1) mEq/L Chloride 103 (98-107) mEq/L Carbon Dioxide 26 (23-29) mEq/L BUN 13 (6-20) mg/dL Creatinine 0.76 (0.70-1.30) mg/dL Glucose 120 H (70-105) mg/dL Calcium 8.5 L (8.6-10.3) mg/dL Calcium panel 05/16/17 Range/Units 04:37 Calcium 8.5 L (8.6-10.3) mg/dL Pituitary panel 05/16/17 Range/Units 04:37 Sodium 135 L (136-145) mEq/L Potassium 4.1 (3.5-5.1) mEq/L Chloride 103 (98-107) mEq/L Carbon Dioxide 26 (23-29) mEq/L BUN 13 (6-20) mg/dL Creatinine 0.76 (0.70-1.30) mg/dL Glucose 120 H (70-105) mg/dL Calcium 8.5 L (8.6-10.3) mg/dL Adrenal panel 05/16/17 Range/Units 04:37 Sodium 135 L (136-145) mEq/L Potassium 4.1 (3.5-5.1) mEq/L Chloride 103 (98-107) mEq/L Carbon Dioxide 26 (23-29) mEq/L BUN 13 (6-20) mg/dL Creatinine 0.76 (0.70-1.30) mg/dL Glucose 120 H (70-105) mg/dL Calcium 8.5 L (8.6-10.3) mg/dL - Attending Attestation I have personally seen and examined the patient. I have reviewed pertinent labs , imaging, progress notes, including this one. I agree with the above assessment and plan and wish to include the following... 56M s/p ex lap for free air; found to have perf duo ulcer; sealed at exploration ; RUQ drain placed; having bowel function now; okay to advance diet as tolerated ; once tolerating diet, okay for discharge from surgical standpoint
[2017-05-16] MEDS: predniSONE 20 MG TABLET PO SCH (10:13)
[2017-05-16] MEDS: Fluconazole 400 MG/200 ML 400 MG/200 ML BAG IVPB SCH (10:14)
[2017-05-16] MEDS: *HR* OxyCODONE/APAP 5/325 TABLET PO PRN (10:18)
[2017-05-16] MEDS: Benzonatate 100 MG CAPSULE PO PRN ×2 (10:21→16:09)
--- NOTE | 2017-05-16 11:51 | Event Note ---
Date of Encounter: 05/16/17 Time of Encounter: 11:[address] for DC planning purposes. When patient is able to DC, he will need a postoperative/drain check with the [facility] [employer] [facility] at [facility] in one week. - Patient Status Disposition: Still a Patient Condition: Fair - Discharge Instructions Follow Up With: NONE,PCP [Primary Care Provider] - Joselin Andrade, MOBILE MANAGER [Advanced Practice Nurse] - (One week after hospital DC for drain check)
[2017-05-16] MEDS: Pantoprazole 40 MG VIAL IVP SCH (16:09)
--- NOTE | 2017-05-16 17:14 | Internal Med Progress Note ---
Date of Encounter: 05/16/17 Time of Encounter: 11:00 - Assessment and plan (1) Perforated duodenal ulcer Current Visit: Yes Status: Acute Assessment and plan: s/p Exp laparotomy Still has ETHAN drainage Surgery following Advanced diet on PPI BID His Biopsy came back as chronic gastritis and negative for H. Pylori (2) Status post exploratory laparotomy Current Visit: Yes Status: Acute Assessment and plan: s/p Exp laparotomy Still has ETHAN drainage Surgery following Advanced diet (3) COPD exacerbation Current Visit: Yes Status: Acute Assessment and plan: Improving on PO and tapering dose of steroids Cont empirical abx Levaquin Cont Tessalon Perles, and duo nebs [id number]. O2 as needed to maintain saturations greater than 92% (4) Acute respiratory failure with hypoxia Current Visit: Yes Status: Resolved Assessment and plan: Improved now breathing comfortably on RA (5) Chest pain Current Visit: Yes Status: Acute Assessment and plan: He did h/o CAD s/p stent he is high risk for ACS too still waiting on his medical records from [facility] May consider to do a stress test before he get d/c home Qualifiers: Chest pain type: unspecified Qualified Code(s): R07.9 - Chest pain, unspecified (6) Lung nodules Current Visit: Yes Status: Acute Assessment and plan: Need out pt f/u as an out pt Need to quit smoking (7) Tobacco use disorder Current Visit: Yes Status: Acute Assessment and plan: Patient is a current every day smoker. Cessation advised and discussed today again - Subjective Interval history: 56 year old male with past medical history significant for HTN, HLD, CAD s/p stent pt who happened ot have duodenal ulcer, after an attempt to clipping during EGD post procedurally the patient began having exquisite abdominal pain localized to his mid epigastrium. His CT of abd showed perforated duodenal ulcer with pneumo peritoneum. Pt had an exploratory laporotomy on 05/12/17. Today pt is alert, awake and O x 3. Denied any N/V. Tolerating regular diet well. Had dark colored stool y/d x 1 - Constitutional Vitals: Temp Pulse Resp BP Pulse Ox 97.3 F L 91 16 151/88 98 05/16/17 15:58 05/16/17 15:58 05/16/17 16:47 05/16/17 15:58 05/16/17 16:47 General appearance: Present: cooperative, A&O X 3, pleasant, answers questions appropriately - Head Head exam: Present: atraumatic, normal inspection - Neck Neck exam general surgery: Present: supple - Respiratory Respiratory exam: Present: decreased breath sounds. Absent: rales, respiratory distress, rhonchi, wheezes - Cardiovascular Cardiovascular exam: Present: RRR, +S1, +S2. Absent: tachycardia - GI/Abdominal GI/Abdominal exam: Present: distended, normal bowel sounds, soft, tenderness. Absent: rebound, rigid Additional comments: ETHAN drainage tube + - Extremities Exam Extremities exam: Absent: calf tenderness, pedal edema, tenderness - Back Exam Back exam: Absent: CVA tenderness (L), CVA tenderness (R) - Neurological Exam Neurological exam: Present: alert, oriented X3 - Psychiatric Psychiatric exam: Present: normal affect, normal mood Internal Medicine: Result - Labs CBC & Chem 7: 05/16/17 04:37 05/16/17 04:37 Labs: Short CBC 05/16/17 Range/Units 04:37 WBC 16.3 H (4.3-11.1) K/mcL Hgb 12.1 L (12.9-16.9) g/dL Hct 36.6 L (37.5-50.1) % Plt Count 275 (140-400) K/mcL Neutrophils # 12.2 H (1.6-8.9) K/mcL BMP 05/16/17 04:37 Sodium 135 L Potassium 4.1 Chloride 103 Carbon Dioxide 26 BUN 13 Creatinine 0.76 Glucose 120 H Calcium 8.5 L - ABG Interpretation ABG results: PT/INR, D-dimer PT 11.7 Seconds (9.4-12.1) 05/11/17 22:42 D-Dimer 711 ng/mLFEU (0-500) H 05/07/17 20:38 - VTE Documentation of Mechanical Device: Intermittent pneumatic compression device Consult Discharge Plan - Plan Referrals: Joselin Andrade, SUPERVISOR TWISTING DEPARTMENT [Advanced Practice Nurse] - (One week after hospital DC for drain check) NONE,PCP [Primary Care Provider] -
[2017-05-16] MEDS: Melatonin 3 MG TABLET PO SCH (21:50)
[2017-05-17] MEDS: Ipratropium/Albuterol Neb 3 ML IH SCH ×7 (00:13→23:28)
[2017-05-17] MEDS: Piperacillin/Tazobactam 3.375 GM in 0.9 % Sodium Chloride Mini Bag 100 ML IVPB SCH (02:11)
[2017-05-17] MEDS: *HR* OxyCODONE/APAP 10/325 TABLET PO PRN ×2 (02:11→08:28)
[2017-05-17] MEDS: Pantoprazole 40 MG VIAL IVP SCH (05:19)
[2017-05-17] MEDS: *HR* Heparin 5,000 UNIT/ML VIAL SQ SCH ×2 (05:19→16:41)
[2017-05-17 06:20] LABS: Hematocrit 38.9 % (37.5-50.1); Hemoglobin 13.1 g/dL (12.9-16.9); Mean Corpuscular HGB Conc 33.7 g/dL (31.6-35.5); Mean Corpuscular Hemoglobin 28.4 pg (28.0-33.3); Mean Corpuscular Volume 84.2 fL (83.0-100.0); Mean Platelet Volume 9.2 fL (9.4-12.4); Platelet Count 300 K/mcL (140-400); Red Blood Count 4.62 M/mcL (4.19-5.50); Red Cell Distribution Width 15.5 % (11.5-14.5)
[2017-05-17 06:31] LABS: BUN/Creatinine Ratio 19 (6-26); Blood Urea Nitrogen 17 mg/dL (6-20); Calcium 8.6 mg/dL (8.6-10.3); Carbon Dioxide 27 mEq/L (23-29); Chloride 102 mEq/L (98-107); Glucose 91 mg/dL (70-105); Osmolality,Calculated 283 (280-300); Potassium 3.6 mEq/L (3.5-5.1); Sodium 136 mEq/L (136-145); eGFR For African Americans > 60 (> 60); eGFR For Non-African Americans > 60 (> 60)
[2017-05-17] MEDS: Budesonide/Formoterol 80/4.5 MDI IH SCH ×2 (08:00→19:54)
[2017-05-17 08:21] LABS: Eosinophils # 0.4 K/mcL (0.0-0.6); Lymphocytes # 7.1 K/mcL (0.6-4.6); Monocytes # 0.8 K/mcL (0.0-1.3); Neutrophils # 11.1 K/mcL (1.6-8.9); Platelet Estimate Normal (Normal); Reactive Lymphocytes Present (Not Present)
[2017-05-17] MEDS: predniSONE 20 MG TABLET PO SCH (08:29)
[2017-05-17] MEDS: Benzonatate 100 MG CAPSULE PO PRN ×2 (08:29→16:33)
[2017-05-17] MEDS: Fluconazole 400 MG/200 ML 400 MG/200 ML BAG IVPB SCH (08:32)
--- NOTE | 2017-05-17 10:39 | General Surgery Progress Note ---
<Sarah Sen Duane - Last Filed: 05/17/17 11:51> Date of Encounter: 05/17/17 Objective Vital Signs - Last 8 Hours Temp Pulse Resp BP Pulse Ox 05/17/17 11:09 22 94 05/17/17 11:04 98.0 F 94 16 135/93 92 05/17/17 07:37 97.9 F 83 17 154/116 94 05/17/17 04:56 97.6 F 80 20 134/75 93 05/17/17 04:51 20 93 Intake and Output 05/16/17 05/17/17 05/17/17 23:59 07:59 15:59 Intake Total 600 / 600 100 / 100 0 / 0 Output Total 2 / 2 0 / 0 0 / 0 Balance 598 / 598 100 / 100 0 / 0 Intake: IV Fluids 100 / 100 Zosyn 3.375 GM In 0.9 % Sodium 100 / 100 Chloride (Mini-Bag +) 100 ML @ 25 mls/hr IVPB Q8H [facility] Rx#: [id number] Oral 600 / 600 0 / 0 Output: Urine 0 / 0 0 / 0 Wound Drainage 2 / 2 Right Upper Abdomen 2 / 2 Other: Meal NPO Percent of Meal Consumed 70% 0% # Bowel Movements 0 0 Weight 111.244 kg Patient Weight 05/17/17 23:59 Weight 111.244 kg - Labs 05/17/17 05:40 05/17/17 05:40 Diabetes panel 05/17/17 Range/Units 05:40 Sodium 136 (136-145) mEq/L Potassium 3.6 (3.5-5.1) mEq/L Chloride 102 (98-107) mEq/L Carbon Dioxide 27 (23-29) mEq/L BUN 17 (6-20) mg/dL Creatinine 0.88 (0.70-1.30) mg/dL Glucose 91 (70-105) mg/dL Calcium 8.6 (8.6-10.3) mg/dL Calcium panel 05/17/17 Range/Units 05:40 Calcium 8.6 (8.6-10.3) mg/dL Pituitary panel 05/17/17 Range/Units 05:40 Sodium 136 (136-145) mEq/L Potassium 3.6 (3.5-5.1) mEq/L Chloride 102 (98-107) mEq/L Carbon Dioxide 27 (23-29) mEq/L BUN 17 (6-20) mg/dL Creatinine 0.88 (0.70-1.30) mg/dL Glucose 91 (70-105) mg/dL Calcium 8.6 (8.6-10.3) mg/dL Adrenal panel 05/17/17 Range/Units 05:40 Sodium 136 (136-145) mEq/L Potassium 3.6 (3.5-5.1) mEq/L Chloride 102 (98-107) mEq/L Carbon Dioxide 27 (23-29) mEq/L BUN 17 (6-20) mg/dL Creatinine 0.88 (0.70-1.30) mg/dL Glucose 91 (70-105) mg/dL Calcium 8.6 (8.6-10.3) mg/dL Consult Discharge Plan - Plan Additional Instructions: #1 may shower, no tub bath for 2 weeks #2 wash incisions with soap and water and pat dry daily #3 no lifting, pushing, pulling more than 15 pounds for the next 6 weeks #4 no driving until off narcotics for 24 hours and able to safely react in the car #5 may climb stairs Referrals: NONE,PCP [Primary Care Provider] - Joselin Andrade, MARKETING TEAM LEAD [Advanced Practice Nurse] - 05/23/17 3:00 pm (Hospital follow-up for staple removal) <Kaylah Blankenship-My - Last Filed: 05/17/17 12:01> Date of Encounter: 05/17/17 Time of Encounter: 09:30 - Assessment and Plan (1) Status post exploratory laparotomy Current Visit: Yes Status: Acute POD #4 from an ex lap with placement of RUQ drain from a presumed perforated duodenal ulcer as evident by free air on CXR after EGD. -From a surgical standpoint, patient is able to get out of bed with assistance. Good flatus and bowel sounds in all four quadrants with mildly distended abdomen. Surgery recommends that the patient returns to a clear liquid diet only if distention does not improve and/or if he does not tolerates meals and has nausea and/or vomiting. If the patient does well with eating, then the patient is able to be discharged from a surgical standpoint. -Patient clinically improving. Patient still complains of Mid-abdominal pain and tenderness. Surgical incision is clean, dry and intact. Sarah Sen CNP, has removed the ETHAN drain. -IVF -Abx, antifungal -PPI ggt -Wound care for daily dry dressing changes. -Surgery will sign off today. Thank you for allowing surgery to participate in Mr. Corral's care. (2) Pneumoperitoneum Current Visit: Yes Status: Acute Repeat KUB xray on 05/14/17 reports reads mild distention of the small bowel and colon. Findings appear to be related to ileus as the contrast from the prior upper GI study has progressed to the colon. (3) Perforated duodenal ulcer Current Visit: Yes Status: Acute (4) COPD exacerbation Current Visit: Yes Status: Acute Management per primary team. Oxygen saturation at 94% on room air. Wheezes heard bilaterally on lung auscultation. (5) Acute respiratory failure with hypoxia Current Visit: Yes Status: Resolved Management per pulmonology. Subjective Narrative: The patient was seen and evaluated at bedside this morning. Patient is awake, alert, afebrile, and appears in no acute distress. The patient admits he is very frustrated with his hospitalization stay. He states that he is "ready to go home even if it means I have to sign an AMA because I am mad." The patient states that he is frustrated because he cannot eat because he is expected to have a stress test today and that he is in pain. The patient also states he has RLQ pain that he describes as intermittent crampy pain that lasts for approximately 45 seconds to 1 minute when it comes on. He states the pain is localized and has no radiation. He admits the right lower quadrant pain improves when he stands up or when he burps. He denies any flatus but admits he tolerates his diet and has appropriate bowel movements. Fever, headaches, vision changes, new syncope, chest pain, shortness of breath, difficulty breathing, diarrhea, urinary symptoms, numbness and tingling, and any weaknesses. The patient has no other concerns at this time. Objective Vital Signs - Last 8 Hours Temp Pulse Resp BP Pulse Ox 05/17/17 07:37 97.9 F 83 17 154/116 94 05/17/17 04:56 97.6 F 80 20 134/75 93 05/17/17 04:51 20 93 Intake and Output 05/16/17 05/17/17 05/17/17 23:59 07:59 15:59 Intake Total 600 / 600 100 / 100 0 / 0 Output Total 2 / 2 0 / 0 Balance 598 / 598 100 / 100 0 / 0 Intake: IV Fluids 100 / 100 Zosyn 3.375 GM In 0.9 % Sodium 100 / 100 Chloride (Mini-Bag +) 100 ML @ 25 mls/hr IVPB Q8H [facility] Rx#: [id number] Oral 600 / 600 0 / 0 Output: Urine 0 / 0 Wound Drainage 2 / 2 Right Upper Abdomen 2 / 2 Other: Meal NPO Percent of Meal Consumed 70% 0% # Bowel Movements 0 Weight 111.244 kg Patient Weight 05/17/17 23:59 Weight 111.244 kg - General physical appearance well developed, well nourished, no distress, other (Patient appears frustrated and angry.) - Eyes PERRL, normal ocular movement - ENT normal mucosa - Neck Neck exam: trachea midline - Respiratory normal expansion, normal respiratory effort wheezing: bilateral - Cardiovascular Cardiovascular exam: Present: RRR, no murmurs/rubs/gallops - Abdomen Abdomen: Present: bowel sounds present, soft, tender (Tenderness to palpation near the left side of surgical incision. Post op tenderness appropiate. RLQ tender to palpation. Negative Rovsing's sign. Negative McBurney's sign) Abdominal Tenderness: RLQ - Incision Incision: Present: clean and dry, intact. Absent: draining, erythema, purulent - Integumentary no rash - Neurologic CN 2-12 grossly intact - Psychiatric oriented to time, oriented to person, oriented to place - Labs 05/17/17 05:40 05/17/17 05:40 Diabetes panel 05/17/17 Range/Units 05:40 Sodium 136 (136-145) mEq/L Potassium 3.6 (3.5-5.1) mEq/L Chloride 102 (98-107) mEq/L Carbon Dioxide 27 (23-29) mEq/L BUN 17 (6-20) mg/dL Creatinine 0.88 (0.70-1.30) mg/dL Glucose 91 (70-105) mg/dL Calcium 8.6 (8.6-10.3) mg/dL Calcium panel 05/17/17 Range/Units 05:40 Calcium 8.6 (8.6-10.3) mg/dL Pituitary panel 05/17/17 Range/Units 05:40 Sodium 136 (136-145) mEq/L Potassium 3.6 (3.5-5.1) mEq/L Chloride 102 (98-107) mEq/L Carbon Dioxide 27 (23-29) mEq/L BUN 17 (6-20) mg/dL Creatinine 0.88 (0.70-1.30) mg/dL Glucose 91 (70-105) mg/dL Calcium 8.6 (8.6-10.3) mg/dL Adrenal panel 05/17/17 Range/Units 05:40 Sodium 136 (136-145) mEq/L Potassium 3.6 (3.5-5.1) mEq/L Chloride 102 (98-107) mEq/L Carbon Dioxide 27 (23-29) mEq/L BUN 17 (6-20) mg/dL Creatinine 0.88 (0.70-1.30) mg/dL Glucose 91 (70-105) mg/dL Calcium 8.6 (8.6-10.3) mg/dL - VTE Documentation of Mechanical Device: Intermittent pneumatic compression device <Curtis Delcid - Last Filed: 05/17/17 12:16> Date of Encounter: 05/17/17 Time of Encounter: 12:16 - Assessment and Plan (1) Pneumoperitoneum Current Visit: Yes Status: Acute Objective Vital Signs - Last 8 Hours Temp Pulse Resp BP Pulse Ox 05/17/17 11:09 22 94 05/17/17 11:04 98.0 F 94 16 135/93 92 05/17/17 07:37 97.9 F 83 17 154/116 94 05/17/17 04:56 97.6 F 80 20 134/75 93 05/17/17 04:51 20 93 Intake and Output 05/16/17 05/17/17 05/17/17 23:59 07:59 15:59 Intake Total 600 / 600 100 / 100 0 / 0 Output Total 2 / 2 0 / 0 0 / 0 Balance 598 / 598 100 / 100 0 / 0 Intake: IV Fluids 100 / 100 Zosyn 3.375 GM In 0.9 % Sodium 100 / 100 Chloride (Mini-Bag +) 100 ML @ 25 mls/hr IVPB Q8H [facility] Rx#: [id number] Oral 600 / 600 0 / 0 Output: Urine 0 / 0 0 / 0 Wound Drainage 2 / 2 Right Upper Abdomen 2 / 2 Other: Meal NPO Percent of Meal Consumed 70% 0% # Bowel Movements 0 0 Weight 111.244 kg Patient Weight 05/17/17 23:59 Weight 111.244 kg - Labs 05/17/17 05:40 05/17/17 05:40 Diabetes panel 05/17/17 Range/Units 05:40 Sodium 136 (136-145) mEq/L Potassium 3.6 (3.5-5.1) mEq/L Chloride 102 (98-107) mEq/L Carbon Dioxide 27 (23-29) mEq/L BUN 17 (6-20) mg/dL Creatinine 0.88 (0.70-1.30) mg/dL Glucose 91 (70-105) mg/dL Calcium 8.6 (8.6-10.3) mg/dL Calcium panel 05/17/17 Range/Units 05:40 Calcium 8.6 (8.6-10.3) mg/dL Pituitary panel 05/17/17 Range/Units 05:40 Sodium 136 (136-145) mEq/L Potassium 3.6 (3.5-5.1) mEq/L Chloride 102 (98-107) mEq/L Carbon Dioxide 27 (23-29) mEq/L BUN 17 (6-20) mg/dL Creatinine 0.88 (0.70-1.30) mg/dL Glucose 91 (70-105) mg/dL Calcium 8.6 (8.6-10.3) mg/dL Adrenal panel 05/17/17 Range/Units 05:40 Sodium 136 (136-145) mEq/L Potassium 3.6 (3.5-5.1) mEq/L Chloride 102 (98-107) mEq/L Carbon Dioxide 27 (23-29) mEq/L BUN 17 (6-20) mg/dL Creatinine 0.88 (0.70-1.30) mg/dL Glucose 91 (70-105) mg/dL Calcium 8.6 (8.6-10.3) mg/dL - Attending Attestation I have personally seen and examined the patient. I have reviewed pertinent labs , imaging, progress notes, including this one. I agree with the above assessment and plan.
[2017-05-17] MEDS: *HR* OxyCODONE/APAP 5/325 TABLET PO PRN ×3 (12:34→20:47)
--- NOTE | 2017-05-17 17:43 | Internal Med Progress Note ---
Date of Encounter: 05/17/17 Time of Encounter: 13:20 - Assessment and plan (1) Perforated duodenal ulcer Current Visit: Yes Status: Acute Assessment and plan: s/p Exp laparotomy Removed ETHAN drainage Surgery following Advanced diet Switched to PO PPI BID His Biopsy came back as chronic gastritis and negative for H. Pylori (2) Status post exploratory laparotomy Current Visit: Yes Status: Acute Assessment and plan: s/p Exp laparotomy ETHAN drainage d/c Surgery following surgery cleared to d/c home in AM (3) COPD exacerbation Current Visit: Yes Status: Acute Assessment and plan: Improving on PO and tapering dose of steroids Cont empirical abx Levaquin Cont Tessalon Perles, and duo nebs [id number]. O2 as needed to maintain saturations greater than 92% (4) Acute respiratory failure with hypoxia Current Visit: Yes Status: Resolved Assessment and plan: Improved now breathing comfortably on RA (5) Chest pain Current Visit: Yes Status: Acute Assessment and plan: He did h/o CAD s/p stent he is high risk for ACS too still waiting on his medical records from [facility] his troponin x 2 negative will do a stress test in AM Qualifiers: Chest pain type: unspecified Qualified Code(s): R07.9 - Chest pain, unspecified (6) Lung nodules Current Visit: Yes Status: Acute Assessment and plan: Need out pt f/u as an out pt Need to quit smoking (7) Tobacco use disorder Current Visit: Yes Status: Acute Assessment and plan: Patient is a current every day smoker. Cessation advised and discussed today again - Subjective Interval history: 56 year old male with past medical history significant for HTN, HLD, CAD s/p stent pt who happened ot have duodenal ulcer, after an attempt to clipping during EGD post procedurally the patient began having exquisite abdominal pain localized to his mid epigastrium. His CT of abd showed perforated duodenal ulcer with pneumo peritoneum. Pt had an exploratory laporotomy on 05/12/17. Today pt is alert, awake and O x 3. Denied any N/V. Tolerating regular diet well. Had dark colored stool y/d x 1.No events over night - Constitutional Vitals: Temp Pulse Resp BP Pulse Ox 97.5 F L 86 17 133/80 97 05/17/17 16:18 05/17/17 16:18 05/17/17 16:18 05/17/17 16:18 05/17/17 16:18 General appearance: Present: cooperative, A&O X 3, pleasant, answers questions appropriately - Head Head exam: Present: atraumatic, normal inspection - Neck Neck exam general surgery: Present: supple - Respiratory Respiratory exam: Present: decreased breath sounds. Absent: rales, respiratory distress, rhonchi, wheezes - Cardiovascular Cardiovascular exam: Present: RRR, +S1, +S2. Absent: tachycardia - GI/Abdominal GI/Abdominal exam: Present: normal bowel sounds, soft, tenderness. Absent: rebound, rigid - Extremities Exam Extremities exam: Absent: calf tenderness, pedal edema, tenderness - Back Exam Back exam: Absent: CVA tenderness (L), CVA tenderness (R) - Neurological Exam Neurological exam: Present: alert, oriented X3 Internal Medicine: Result - Labs CBC & Chem 7: 05/17/17 05:40 05/17/17 05:40 Labs: Short CBC 05/17/17 Range/Units 05:40 WBC 19.8 H (4.3-11.1) K/mcL Hgb 13.1 (12.9-16.9) g/dL Hct 38.9 (37.5-50.1) % Plt Count 300 (140-400) K/mcL Neutrophils # 11.1 H (1.6-8.9) K/mcL BMP 05/17/17 05:40 Sodium 136 Potassium 3.6 Chloride 102 Carbon Dioxide 27 BUN 17 Creatinine 0.88 Glucose 91 Calcium 8.6 Cardiac Enzymes 05/17/17 05/17/17 Range/Units 09:44 15:21 Troponin I < 0.03 < 0.03 (< 0.04) ng/mL - ABG Interpretation ABG results: PT/INR, D-dimer PT 11.7 Seconds (9.4-12.1) 05/11/17 22:42 D-Dimer 711 ng/mLFEU (0-500) H 05/07/17 20:38 - VTE Documentation of Mechanical Device: Intermittent pneumatic compression device Consult Discharge Plan - Plan Additional Instructions: #1 may shower, no tub bath for 2 weeks #2 wash incisions with soap and water and pat dry daily #3 no lifting, pushing, pulling more than 15 pounds for the next 6 weeks #4 no driving until off narcotics for 24 hours and able to safely react in the car #5 may climb stairs Referrals: Moe Nam DO [Resident] - 05/29/17 10:30 am (please follow up as shcedule. call if you need to reschedule) Joselin Andrade, [employer] [Advanced Practice Nurse] - 05/23/17 3:00 pm (Hospital follow-up for staple removal) NONE,PCP [Primary Care Provider] -
[2017-05-17] MEDS: Melatonin 3 MG TABLET PO SCH (20:47)
[2017-05-18] MEDS: *HR* OxyCODONE/APAP 5/325 TABLET PO PRN (01:57)
[2017-05-18 03:34] LABS: Basophils # 0.1 K/mcL (0.0-0.2); Basophils % 0.5 %; Eosinophils # 0.1 K/mcL (0.0-0.6); Eosinophils % 0.5 %; Hemoglobin 12.2 g/dL (12.9-16.9); Immature Granulocytes % 7.2 % (0-4); Lymphocytes # 4.2 K/mcL (0.6-4.6); Lymphocytes % 22.2 %; Mean Corpuscular HGB Conc 33.9 g/dL (31.6-35.5); Mean Corpuscular Hemoglobin 28.7 pg (28.0-33.3); Mean Corpuscular Volume 84.7 fL (83.0-100.0); Mean Platelet Volume 9.2 fL (9.4-12.4); Monocytes # 1.4 K/mcL (0.0-1.3); Monocytes % 7.2 %; Neutrophils # 11.9 K/mcL (1.6-8.9); Platelet Count 279 K/mcL (140-400); Red Blood Count 4.25 M/mcL (4.19-5.50); Red Cell Distribution Width 15.7 % (11.5-14.5); Segmented Neutrophils % 62.4 %
[2017-05-18] MEDS: Ipratropium/Albuterol Neb 3 ML IH SCH ×3 (03:45→11:34)
[2017-05-18 03:53] LABS: BUN/Creatinine Ratio 21 (6-26); Blood Urea Nitrogen 17 mg/dL (6-20); Calcium 8.1 mg/dL (8.6-10.3); Carbon Dioxide 27 mEq/L (23-29); Chloride 103 mEq/L (98-107); Glucose 106 mg/dL (70-105); Osmolality,Calculated 286 (280-300); Potassium 3.6 mEq/L (3.5-5.1); Sodium 137 mEq/L (136-145); eGFR For African Americans > 60 (> 60); eGFR For Non-African Americans > 60 (> 60)
[2017-05-18 04:43] LABS: Platelet Estimate Normal (Normal); Toxic Vacuolation Present (Not Present)
[2017-05-18] MEDS ORDERED: Regadenoson 0.4 MG/5 ML SYRINGE IVP ONE (05:30)
[2017-05-18] MEDS: *HR* Heparin 5,000 UNIT/ML VIAL SQ SCH (05:34)
[2017-05-18] MEDS: *HR* OxyCODONE/APAP 10/325 TABLET PO PRN ×2 (07:44→11:53)
[2017-05-18] MEDS: Budesonide/Formoterol 80/4.5 MDI IH SCH (07:45)
[2017-05-18] MEDS ORDERED: Fluconazole 100 MG TABLET PO SCH (09:00)
[2017-05-18] MEDS: predniSONE 20 MG TABLET PO SCH (09:14)
[2017-05-18 10:35] VITALS: BP 136/80
[2017-05-18] MEDS ORDERED: Aspirin 81 MG TAB.CHEW PO SCH (11:00)
--- NOTE | 2017-05-18 13:06 | Discharge Summary ---
- NOTES TO OUTPATIENT PROVIDER Notes to Outpatient Provider: Need to f/u with Surgery in 5-7 days. Start taking ASA 81mg since you have previous h/o CAD/ [place]. Cont taking Prilosec 20mg BID + Carafate. Cont antibiotic for nother 4 days. You do have multiple lung nodules b/l.. So please stop smoking and go for f/u CT of chest in 6 weeks Orders not resulted at time of discharge: Pending orders 05/17/17 08:01 NM rhina perf SPECT multi [NM] Routine Date of Encounter: 05/18/17 Time of Encounter: 13:04 - Discharge Diagnosis (1) Perforated duodenal ulcer Priority: Primary Status: Acute (2) Status post exploratory laparotomy Priority: Primary Status: Acute (3) COPD exacerbation Priority: Secondary Status: Acute (4) Acute respiratory failure with hypoxia Priority: Secondary Status: Resolved (5) Chest pain Priority: Secondary Status: Acute Qualifiers: Chest pain type: unspecified Qualified Code(s): R07.9 - Chest pain, unspecified (6) Lung nodules Priority: Secondary Status: Acute (7) Tobacco use disorder Priority: Secondary Status: Acute Hospital course: 56 year old male with past medical history significant for HTN, HLD, CAD s/p stent pt who happened ot have duodenal ulcer, after an attempt to clipping during EGD post procedurally the patient began having exquisite abdominal pain localized to his mid epigastrium. His CT of abd showed perforated duodenal ulcer with pneumo peritoneum. Pt was transferred to ICU. Pt had an exploratory laporotomy on 05/12/17. Pt symptoms started improving slowly. He was started on empirical abx Levaquin, Zosyn and Fluconazole. His WBC started trending down slowly. He was moved to regular floor and started him on diet which he tolerated well so far. His HB stayed stable @ 12.0, never received any blood products. His tissue biopsy from duodenal ulcer came back as negative for H. Pylori. Pt was placed on PO PPI. He did have h/o CAD with ?? stents in the past , i requested records from [facility] but we never received any records. However since pt did c/o CP, we checked his trop x 2 which were negative and did a stress test today which came back negative for ischemia. Will d/c him home in stable condition today. - Time Spent with Patient Total time spent providing and/or coordinating discharge services: Greater than 30 minutes (Spent 45 minutes on this patient's discharge summary due to complex medical problems and patient needed a lot of education regarding discharge instructions) - Discharge Medications Prescriptions: Nitroglycerin 0.4 mg SL Q5MIN PRN #10 tab.subl PRN Reason: Chest Pain Ipratropium/Albuterol Neb [Duoneb] 3 ml IH Q6HR PRN #100 inhsol PRN Reason: Wheezing OxyCODONE/APAP 5/325 [Percocet 5/325 MG] 1 each PO Q6HR PRN 5 Days #15 tablet PRN Reason: Pain 1-5 Amoxicillin/Clavulanate [Augmentin] 875 mg PO BIDWM #8 tablet Aspirin 81 mg PO DAILY #30 tab.chew Budesonide/Formoterol 80/4.5 [Symbicort 80/4.5] 2 puff IH BIDR #1 inhaler CloNIDine Patch [Catapres-Tts] 0.1 mg TD Fr@1100 30 Days patch.tdwk Fluconazole [Diflucan] 200 mg PO DAILY 4 Days tablet Omeprazole [PriLOSEC] 20 mg PO BIDAC #60 capsule. Sucralfate [Carafate] 1 gm PO QIDAC #120 udc Home Medications: Amoxicillin/Clavulanate [Augmentin] 875 mg PO BIDWM #8 tablet 05/18/17 [Rx] Aspirin 81 mg PO DAILY #30 tab.chew 05/18/17 [Rx] Benzonatate [Tessalon] 100 mg PO Q6HR PRN capsule 05/18/17 [Rx] Budesonide/Formoterol 80/4.5 [Symbicort 80/4.5] 2 puff IH BIDR #1 inhaler 05/18 [Rx] CloNIDine Patch [Catapres-Tts] 0.1 mg TD Fr@1100 30 Days patch.tdwk 05/18/17 [ Rx] Fluconazole [Diflucan] 200 mg PO DAILY 4 Days tablet 05/18/17 [Rx] Ipratropium/Albuterol Neb [Duoneb] 3 ml IH Q6HR PRN #100 inhsol 05/18/17 [Rx] Nitroglycerin 0.4 mg SL Q5MIN PRN #10 tab.subl 05/18/17 [Rx] Omeprazole [PriLOSEC] 20 mg PO BIDAC #60 capsule.dr 05/18/17 [Rx] OxyCODONE/APAP 5/325 [Percocet 5/325 MG] 1 each PO Q6HR PRN 5 Days #15 tablet [Rx] Sucralfate [Carafate] 1 gm PO QIDAC #120 udc 05/18/17 [Rx] Allergies/Adverse Reactions: 3 Allergy/AdvReac Type Severity Reaction Status Date / Time morphine Allergy Vomiting Verified 10/02/16 12:18 Date of admission: 05/14/17 12:46 Primary care physician: PCP NONE - Constitutional Vitals: Temp Pulse Resp BP Pulse Ox 97.5 F L 104 17 136/80 94 05/18/17 10:33 05/18/17 10:33 05/18/17 10:33 05/18/17 10:33 05/18/17 10:33 General appearance: Present: cooperative, A&O X 3, pleasant, answers questions appropriately - Head Head exam: Present: atraumatic, normal inspection - Neck Neck exam general surgery: Present: supple - Respiratory Respiratory exam: Present: decreased breath sounds. Absent: rales, respiratory distress, rhonchi, wheezes - Cardiovascular Cardiovascular exam: Present: RRR, +S1, +S2. Absent: tachycardia - GI/Abdominal GI/Abdominal exam: Present: normal bowel sounds, soft, tenderness (Mild discomfort at the incision area). Absent: rebound, rigid - Extremities Exam Extremities exam: Absent: calf tenderness, pedal edema, tenderness - Back Exam Back exam: Absent: CVA tenderness (L), CVA tenderness (R) - Psychiatric Psychiatric exam: Present: normal affect, normal mood - Patient Status Disposition: Home Health Service Condition: Good Overall status at discharge: patient is back to baseline - Discharge Instructions Follow Up With: Moe Nam DO [Resident] - 05/29/17 10:30 am (please follow up as shcedule. call if you need to reschedule) Joselin Andrade, [employer] [Advanced Practice Nurse] - 05/23/17 3:00 pm (Hospital follow-up for staple removal) NONE,PCP [Primary Care Provider] - Additional Instructions: #1 may shower, no tub bath for 2 weeks #2 wash incisions with soap and water and pat dry daily #3 no lifting, pushing, pulling more than 15 pounds for the next 6 weeks #4 no driving until off narcotics for 24 hours and able to safely react in the car #5 may climb stairs - Diet and Activity Activity: increase activity as tolerated Diet: low salt diet - VTE Documentation of Mechanical Device: Intermittent pneumatic compression device
--- NOTE | 2017-05-18 13:19 | Physician Discharge Referral ---
Home Health/Hosp Referral Info Transfer to: Home Health Provider in Charge Post Discharge: PCP - Diagnosis (1) Perforated duodenal ulcer Status: Acute (2) Status post exploratory laparotomy Status: Acute (3) COPD exacerbation Status: Acute (4) Acute respiratory failure with hypoxia Status: Resolved (5) Chest pain Status: Acute (6) Lung nodules Status: Acute (7) Tobacco use disorder Status: Acute - Respiratory Orders Smoking Cessation: Smoking cessation has been advised. For more information, call the [employer] Board of [employer] (ABAM) Tobacco Quit Line at 2-131-SYCU-NOW. - Services Needed Following services are medically necessary services: Nursing (Dressing change.. education about medications) - Transfer Medications Prescriptions: Nitroglycerin 0.4 mg SL Q5MIN PRN #10 tab.subl PRN Reason: Chest Pain Ipratropium/Albuterol Neb [Duoneb] 3 ml IH Q6HR PRN #100 inhsol PRN Reason: Wheezing OxyCODONE/APAP 5/325 [Percocet 5/325 MG] 1 each PO Q6HR PRN 5 Days #15 tablet PRN Reason: Pain 1-5 Amoxicillin/Clavulanate [Augmentin] 875 mg PO BIDWM #8 tablet Aspirin 81 mg PO DAILY #30 tab.chew Budesonide/Formoterol 80/4.5 [Symbicort 80/4.5] 2 puff IH BIDR #1 inhaler CloNIDine Patch [Catapres-Tts] 0.1 mg TD Fr@1100 30 Days patch.tdwk Fluconazole [Diflucan] 200 mg PO DAILY 4 Days tablet Omeprazole [PriLOSEC] 20 mg PO BIDAC #60 capsule. Sucralfate [Carafate] 1 gm PO QIDAC #120 udc Home Medications: Amoxicillin/Clavulanate [Augmentin] 875 mg PO BIDWM #8 tablet 05/18/17 [Rx] Aspirin 81 mg PO DAILY #30 tab.chew 05/18/17 [Rx] Benzonatate [Tessalon] 100 mg PO Q6HR PRN capsule 05/18/17 [Rx] Budesonide/Formoterol 80/4.5 [Symbicort 80/4.5] 2 puff IH BIDR #1 inhaler 05/18 [Rx] CloNIDine Patch [Catapres-Tts] 0.1 mg TD Fr@1100 30 Days patch.tdwk 05/18/17 [ Rx] Fluconazole [Diflucan] 200 mg PO DAILY 4 Days tablet 05/18/17 [Rx] Ipratropium/Albuterol Neb [Duoneb] 3 ml IH Q6HR PRN #100 inhsol 05/18/17 [Rx] Nitroglycerin 0.4 mg SL Q5MIN PRN #10 tab.subl 05/18/17 [Rx] Omeprazole [PriLOSEC] 20 mg PO BIDAC #60 capsule.dr 05/18/17 [Rx] OxyCODONE/APAP 5/325 [Percocet 5/325 MG] 1 each PO Q6HR PRN 5 Days #15 tablet [Rx] Sucralfate [Carafate] 1 gm PO QIDAC #120 udc 05/18/17 [Rx] Allergies/Adverse Reactions: 3 Allergy/AdvReac Type Severity Reaction Status Date / Time morphine Allergy Vomiting Verified 10/02/16 12:18 Certification: Further, I certify that my clinical findings support that this patient is homebound (i.e. absences from home require considerable and taxing effort and are for medical reasons or jain services or infrequently or short duration when for other reasons) because: Homebound Reason: Post-surgery restriction and or conditions limit ability to leave home Attestation: My signature below is to certify that this patient is under my care and that I, or nurse practitioner, or a physician's congressional assistant working with me, has a face-to -face encounter with this patient.
[2017-05-19] MEDS ORDERED: CloNIDine Patch 0.1 MG PATCH (WEEKLY) TD SCH (11:00)
== END 2017-05-18 14:36 | disposition home health service (06) | DRG 229 ==
LOC: 2ANU 19:51 → EMEROO 19:51 → SUATTDRO 23:19 → 2ANU 05-08 00:03 → 3BNU 05-08 04:28 → ICNU 05-12 02:00 → 2ANU 05-13 17:18
PROVIDERS: ADMIT Internal Medicine; ATTEND Internal Medicine

== ENCOUNTER 2017-06-29 16:46 | Observation (INO) ==
[2017-06-29 17:15] LABS: Hematocrit 42.4 % (37.5-50.1); Hemoglobin 14.2 g/dL (12.9-16.9); Mean Corpuscular HGB Conc 33.5 g/dL (31.6-35.5); Mean Corpuscular Hemoglobin 28.3 pg (28.0-33.3); Mean Corpuscular Volume 84.6 fL (83.0-100.0); Mean Platelet Volume 9.2 fL (9.4-12.4); Platelet Count 285 K/mcL (140-400); Red Blood Count 5.01 M/mcL (4.19-5.50); Red Cell Distribution Width 14.6 % (11.5-14.5)
[2017-06-29 17:36] LABS: Alanine Aminotransferase 19 Units/L (7-52); Albumin 4.2 g/dL (3.5-5.7); Albumin/Globulin Ratio 1.4 (1.1-2.2); Alkaline Phosphatase 85 Units/L (34-104); Aspartate Amino Transferase 19 Units/L (13-39); BUN/Creatinine Ratio 11 (6-26); Bilirubin,Direct 0.1 mg/dL (0.0-0.2); Bilirubin,Indirect 0.2 mg/dL (0.0-1.2); Bilirubin,Total 0.3 mg/dL (0.3-1.0); Blood Urea Nitrogen 11 mg/dL (6-20); Calcium 9.9 mg/dL (8.6-10.3); Carbon Dioxide 29 mEq/L (23-29); Chloride 101 mEq/L (98-107); Globulin 3.1 g/dL (2.4-3.5); Glucose 106 mg/dL (70-105); Lipase 19 Units/L (11-82); Osmolality,Calculated 284 (280-300); Potassium 3.8 mEq/L (3.5-5.1); Sodium 137 mEq/L (136-145); Total Protein 7.3 g/dL (6.4-8.9); eGFR For African Americans > 60 (> 60); eGFR For Non-African Americans > 60 (> 60)
[2017-06-29] MEDS ORDERED: Isovue-370 500 ML INFUS..BTL IV ONE (18:08)
[2017-06-29] MEDS ORDERED: Ondansetron 4 MG/2 ML VIAL IVP ONE (18:13)
[2017-06-29] MEDS ORDERED: 0.9 % Sodium Chloride 1,000 ML IVC ONE (18:13)
[2017-06-29] MEDS ORDERED: *HR* FentaNYL (PF) 100 MCG/2 ML VIAL IVP ONE ×2 (18:13→19:39)
--- NOTE | 2017-06-29 18:23 | Emergency Department Note ---
Disposition Clinical Impression: Epigastric pain, Ulcer Abdominal pain Qualifiers: Abdominal location: epigastric Qualified Code(s): R10.13 - Epigastric pain Disposition: Admitted As Inpatient Condition: Good Abdominal Pain HPI - General Chief Complaint: ED Abdominal Pain Stated Complaint: abd/chest pain Time Seen by Provider: 06/29/17 17:59 Source: patient, family Nursing Notes Reviewed: Yes Vital Signs Reviewed: Yes - History of Present Illness HPI Narrative: Mr. Ivy, 56-year-old male, presents from home for evaluation of abdominal pain, nausea, inability to tolerate by mouth intake, hematochezia. Onset intermittent since prior discharge rehabilitation open abdominal surgery for a gastric ulcer adhered to his liver as well as a continuously bleeding biopsy site from an EGD. Patient's symptoms intimately improve and become worse after mild strenuous activity. Described as left sided intense abdominal cramping, intermittent hematochezia associated nausea, vomiting, decreased by mouth intake. He has some diaphoresis with the most intense pain. No measured fevers. Anticoagulant: None anti-platelet: None ROS: Positive: As above Negative: Melena, fever, chest pains, palpitations, dyspnea, unusual back pains , numbness, tingling, weakness, dysuria Pain Scale: 9 - Related Data Previous Rx's Medication Instructions Recorded Budesonide/Formoterol 80/4.5 2 puff IH BIDR #1 inhaler 05/18/17 [Symbicort 80/4.5] Ipratropium/Albuterol Neb [Duoneb] 3 ml IH Q6HR PRN #100 inhsol 05/18/17 Nitroglycerin 0.4 mg SL Q5MIN PRN #10 tab.subl 05/18/17 Aspirin Enteric Coated [Aspirin EC] 81 mg PO DAILY #30 tablet. 07/01/17 Docusate [Colace] 200 mg PO DAILY capsule 07/01/17 Melatonin 3 mg PO HS PRN tablet 07/01/17 Omeprazole [PriLOSEC] 20 mg PO BIDAC #60 capsule. 07/01/17 Polyethylene Glycol 3350 [MiraLAX] 17 gm PO DAILY powd.pack 07/01/17 Sucralfate [Carafate] 10 ml PO TID #100 ml 07/01/17 Varenicline [Chantix] 0.5 mg PO DAILY tablet 07/01/17 Allergies Allergy/AdvReac Type Severity Reaction Status Date / Time morphine Allergy Vomiting Verified 06/29/17 20:34 All systems ED: reviewed and negative except as stated. Review of Systems: As Per HPI Abdominal Pain PMH - Past Medical History Medical history: Reports: CHF, COPD, GERD, hypertension, myocardial infarction Psychiatric history: Reports: no psych history - Social History Smoking status: Current every day smoker Alcohol use: Reports: none Drug use: Reports: marijuana Physical Exam Vital Signs Reviewed General: Patient is alert, oriented, and in acute abdominal distress-laying in the right lateral decubitus with intermittent wincing and groaning with his intense abdominal cramping. Head: atraumatic, normocephalic Eye: normal appearance, no scleral icterus, no conjunctival injection ENT: mucous membranes moist, normal external ear exam Neck: normal inspection, trachea midline, full ROM Chest: normal inspection, symmetric chest rise Respiratory: Good respiratory effort. Bilateral breath sounds are clear without wheezing, crackles, or rhonchi. Cardiovascular: Regular rate and rhythm. No clicks, rubs, gallops, or murmors. Normal heart sounds. Abdomen: Obese. Well-healed midline postsurgical scar. Bowel sounds present normoactive x-4 quadrants. Abdomen is soft, nondistended. Diffusely tender most prominent in the left upper lower quadrant. Musculoskeletal: Spontaneously moving all extremities. Skin: warm, dry, intact. Neuro: Alert and oriented x4. Sensation light touch intact. Psych: Patient's affect is appropriate for situation. - General Limitations: no limitations General appearance: alert, in no apparent distress Course Course Narrative: EKG dated 06/29/17 at 18:17 interpreted as sinus rhythm with a rate of 76. Normal intervals. Left axis. Nonspecific ST T changes. Compared to previous dated 05/11/2017 showing no acute ischemic changes or comparison. Bedside FOBT negative. Patient's symptoms mildly improved during his stay. No laboratory evidence of anemia. Patient has been signed out to the night team, Dr. Leal and Sr. Luong. CT abdomen and pelvis is pending. Vital Signs Temperature 98.3 F 06/29/17 16:50 Pulse Rate 99 06/29/17 16:50 Respiratory Rate 20 06/29/17 16:50 Blood Pressure 122/93 06/29/17 16:50 O2 Sat by Pulse Oximetry 98 06/29/17 16:50 Temperature 98.7 F 07/01/17 07:29 Pulse Rate 74 07/01/17 07:29 Respiratory Rate 18 07/01/17 07:29 Blood Pressure 117/83 07/01/17 07:29 O2 Sat by Pulse Oximetry 94 07/01/17 07:29 Oxygen Delivery Oxygen Delivery Room Air Abdominal Pain - Lab Data Result diagrams: 07/01/17 04:06 07/01/17 04:06 Lab Results 06/29/17 06/29/17 06/29/17 Range/Units 16:58 16:58 18:29 WBC 14.2 H 13.8 H (4.3-11.1) K/mcL RBC 5.01 4.79 (4.19-5.50) M/mcL Hgb 14.2 13.6 (12.9-16.9) g/dL Hct 42.4 40.2 (37.5-50.1) % MCV 84.6 83.9 (83.0-100.0) fL MCH 28.3 28.4 (28.0-33.3) pg MCHC 33.5 33.8 (31.6-35.5) g/dL RDW 14.6 H 14.5 (11.5-14.5) % Plt Count 285 269 (140-400) K/mcL MPV 9.2 L 9.4 (9.4-12.4) fL Immature Gran % 0.4 (0-4) % Seg Neutrophils % 70.3 % Lymphocytes % 19.0 % Monocytes % 7.9 % Eosinophils % 2.1 % Basophils % 0.3 % Neutrophils # 9.7 H (1.6-8.9) K/mcL Lymphocytes # 2.6 (0.6-4.6) K/mcL Monocytes # 1.1 (0.0-1.3) K/mcL Eosinophils # 0.3 (0.0-0.6) K/mcL Basophils # 0.0 (0.0-0.2) K/mcL PT (9.4-12.1) Seconds INR Sodium 137 (136-145) mEq/L Potassium 3.8 (3.5-5.1) mEq/L Chloride 101 (98-107) mEq/L Carbon Dioxide 29 (23-29) mEq/L BUN 11 (6-20) mg/dL Creatinine 0.97 (0.70-1.30) mg/dL Est GFR ( Amer) > 60 (> 60) Est GFR (Non-Af Amer) > 60 (> 60) BUN/Creatinine Ratio 11 (6-26) Glucose 106 H (70-105) mg/dL Calculated Osmolality 284 (280-300) Lactic Acid (0.5-2.2) mmol/L Calcium 9.9 (8.6-10.3) mg/dL Total Bilirubin 0.3 (0.3-1.0) mg/dL Direct Bilirubin 0.1 (0.0-0.2) mg/dL Indirect Bilirubin 0.2 (0.0-1.2) mg/dL AST 19 (13-39) Units/L ALT 19 (7-52) Units/L Alkaline Phosphatase 85 (34-104) Units/L Troponin I (< 0.04) ng/mL Serum Total Protein 7.3 (6.4-8.9) g/dL Albumin 4.2 (3.5-5.7) g/dL Globulin 3.1 (2.4-3.5) g/dL Albumin/Globulin Ratio 1.4 (1.1-2.2) Amylase (29-103) Units/L Lipase 19 (11-82) Units/L Urine Color (Yellow) Urine Clarity (Clear) Urine pH (5.0-8.0) pH Units Ur Specific Hamill (1.010-1.025) Urine Protein (Neg-Trace) mg/dL Urine Glucose (UA) (Normal) mg/dL Urine Ketones (Negative) mg/dL Urine Blood (Negative) Urine Nitrite (Negative) Urine Bilirubin (Negative) Urine Urobilinogen (Normal) mg/dL Ur Leukocyte Esterase (Negative) Urine Microscopic RBC (0-3) per hpf Urine Microscopic WBC (0-3) per hpf Ur Squamous Epith Cells (None-Few) per lpf Amorphous Sediment (Few) Urine Bacteria (None-Few) per hpf Hyaline Casts (None-Few) per lpf Ur Culture Indicated? (NO) Blood Type Antibody Screen 06/29/17 06/29/17 06/29/17 Range/Units 18:29 18:29 18:29 WBC (4.3-11.1) K/mcL RBC (4.19-5.50) M/mcL Hgb (12.9-16.9) g/dL Hct (37.5-50.1) % MCV (83.0-100.0) fL MCH (28.0-33.3) pg MCHC (31.6-35.5) g/dL RDW (11.5-14.5) % Plt Count (140-400) K/mcL MPV (9.4-12.4) fL Immature Gran % (0-4) % Seg Neutrophils % % Lymphocytes % % Monocytes % % Eosinophils % % Basophils % % Neutrophils # (1.6-8.9) K/mcL Lymphocytes # (0.6-4.6) K/mcL Monocytes # (0.0-1.3) K/mcL Eosinophils # (0.0-0.6) K/mcL Basophils # (0.0-0.2) K/mcL PT 12.3 H (9.4-12.1) Seconds INR 1.1 Sodium (136-145) mEq/L Potassium (3.5-5.1) mEq/L Chloride (98-107) mEq/L Carbon Dioxide (23-29) mEq/L BUN (6-20) mg/dL Creatinine (0.70-1.30) mg/dL Est GFR ( Amer) (> 60) Est GFR (Non-Af Amer) (> 60) BUN/Creatinine Ratio (6-26) Glucose (70-105) mg/dL Calculated Osmolality (280-300) Lactic Acid 1.2 (0.5-2.2) mmol/L Calcium (8.6-10.3) mg/dL Total Bilirubin (0.3-1.0) mg/dL Direct Bilirubin (0.0-0.2) mg/dL Indirect Bilirubin (0.0-1.2) mg/dL AST (13-39) Units/L ALT (7-52) Units/L Alkaline Phosphatase (34-104) Units/L Troponin I < 0.03 (< 0.04) ng/mL Serum Total Protein (6.4-8.9) g/dL Albumin (3.5-5.7) g/dL Globulin (2.4-3.5) g/dL Albumin/Globulin Ratio (1.1-2.2) Amylase 32 (29-103) Units/L Lipase (11-82) Units/L Urine Color (Yellow) Urine Clarity (Clear) Urine pH (5.0-8.0) pH Units Ur Specific Hamill (1.010-1.025) Urine Protein (Neg-Trace) mg/dL Urine Glucose (UA) (Normal) mg/dL Urine Ketones (Negative) mg/dL Urine Blood (Negative) Urine Nitrite (Negative) Urine Bilirubin (Negative) Urine Urobilinogen (Normal) mg/dL Ur Leukocyte Esterase (Negative) Urine Microscopic RBC (0-3) per hpf Urine Microscopic WBC (0-3) per hpf Ur Squamous Epith Cells (None-Few) per lpf Amorphous Sediment (Few) Urine Bacteria (None-Few) per hpf Hyaline Casts (None-Few) per lpf Ur Culture Indicated? (NO) Blood Type Antibody Screen 06/29/17 06/29/17 Range/Units 19:57 20:10 WBC (4.3-11.1) K/mcL RBC (4.19-5.50) M/mcL Hgb (12.9-16.9) g/dL Hct (37.5-50.1) % MCV (83.0-100.0) fL MCH (28.0-33.3) pg MCHC (31.6-35.5) g/dL RDW (11.5-14.5) % Plt Count (140-400) K/mcL MPV (9.4-12.4) fL Immature Gran % (0-4) % Seg Neutrophils % % Lymphocytes % % Monocytes % % Eosinophils % % Basophils % % Neutrophils # (1.6-8.9) K/mcL Lymphocytes # (0.6-4.6) K/mcL Monocytes # (0.0-1.3) K/mcL Eosinophils # (0.0-0.6) K/mcL Basophils # (0.0-0.2) K/mcL PT (9.4-12.1) Seconds INR Sodium (136-145) mEq/L Potassium (3.5-5.1) mEq/L Chloride (98-107) mEq/L Carbon Dioxide (23-29) mEq/L BUN (6-20) mg/dL Creatinine (0.70-1.30) mg/dL Est GFR ( Amer) (> 60) Est GFR (Non-Af Amer) (> 60) BUN/Creatinine Ratio (6-26) Glucose (70-105) mg/dL Calculated Osmolality (280-300) Lactic Acid (0.5-2.2) mmol/L Calcium (8.6-10.3) mg/dL Total Bilirubin (0.3-1.0) mg/dL Direct Bilirubin (0.0-0.2) mg/dL Indirect Bilirubin (0.0-1.2) mg/dL AST (13-39) Units/L ALT (7-52) Units/L Alkaline Phosphatase (34-104) Units/L Troponin I (< 0.04) ng/mL Serum Total Protein (6.4-8.9) g/dL Albumin (3.5-5.7) g/dL Globulin (2.4-3.5) g/dL Albumin/Globulin Ratio (1.1-2.2) Amylase (29-103) Units/L Lipase (11-82) Units/L Urine Color Yellow (Yellow) Urine Clarity Cloudy A (Clear) Urine pH 7.5 (5.0-8.0) pH Units Ur Specific Hamill > 1.030 H (1.010-1.025) Urine Protein Negative (Neg-Trace) mg/dL Urine Glucose (UA) Normal (Normal) mg/dL Urine Ketones Negative (Negative) mg/dL Urine Blood Negative (Negative) Urine Nitrite Negative (Negative) Urine Bilirubin Negative (Negative) Urine Urobilinogen Normal (Normal) mg/dL Ur Leukocyte Esterase Negative (Negative) Urine Microscopic RBC 0-3 (0-3) per hpf Urine Microscopic WBC 0-3 (0-3) per hpf Ur Squamous Epith Cells Few (None-Few) per lpf Amorphous Sediment Few (Few) Urine Bacteria None Seen (None-Few) per hpf Hyaline Casts None Seen (None-Few) per lpf Ur Culture Indicated? NO (NO) Blood Type O POSITIVE Antibody Screen NEGATIVE S.B.A.R. - S.B.A.R. Background: Presenting Complaint, Relevant PMH, Meds, & Allergies Assessment: Vital Signs, Course and respsone to treatment, Exam Concerns, Patient/Family Expectation, Pertinant Lab Results, Outstanding Labs Recommendation: Barrier(s) to disposition, Recommendation based on pending studies, treatments, or consults Attestation Statement - Attestation Attestation: I, Joni Kelley DO, examined this patient [id number] and my medical decision-making was reviewed with (Dr. Wallace Coronel, Resident Physician. I agree with the documented findings, disposition and treatment plan as described except to the extent set forth below. Please see my progress notes for details.
[2017-06-29 18:45] LABS: Basophils % 0.3 %; Eosinophils # 0.3 K/mcL (0.0-0.6); Eosinophils % 2.1 %; Hematocrit 40.2 % (37.5-50.1); Hemoglobin 13.6 g/dL (12.9-16.9); Immature Granulocytes % 0.4 % (0-4); Lymphocytes # 2.6 K/mcL (0.6-4.6); Mean Corpuscular HGB Conc 33.8 g/dL (31.6-35.5); Mean Corpuscular Hemoglobin 28.4 pg (28.0-33.3); Mean Corpuscular Volume 83.9 fL (83.0-100.0); Mean Platelet Volume 9.4 fL (9.4-12.4); Monocytes # 1.1 K/mcL (0.0-1.3); Monocytes % 7.9 %; Neutrophils # 9.7 K/mcL (1.6-8.9); Platelet Count 269 K/mcL (140-400); Red Blood Count 4.79 M/mcL (4.19-5.50); Red Cell Distribution Width 14.5 % (11.5-14.5); Segmented Neutrophils % 70.3 %
[2017-06-29 18:51] LABS: INR 1.1; Prothrombin Time 12.3 Seconds (9.4-12.1)
[2017-06-29 19:01] LABS: Amylase 32 Units/L (29-103)
[2017-06-29 19:03] LABS: Troponin I < 0.03 ng/mL (< 0.04)
--- NOTE | 2017-06-29 19:09 | Emergency Department Note ---
Disposition Clinical Impression: Abdominal pain, Epigastric pain Disposition: Still a Patient Condition: Fair Referrals: Moe Nam DO [Primary Care Provider] - Time of Disposition: 19:10 Abdominal Pain HPI - General Chief Complaint: ED Abdominal Pain Stated Complaint: abd/chest pain Time Seen by Provider: 06/29/17 17:59 Source: patient, family - History of Present Illness Pain Scale: 9 - Related Data Previous Rx's Medication Instructions Recorded Amoxicillin/Clavulanate [Augmentin] 875 mg PO BIDWM #8 tablet 05/18/17 Aspirin 81 mg PO DAILY #30 tab.chew 05/18/17 Benzonatate [Tessalon] 100 mg PO Q6HR PRN capsule 05/18/17 Budesonide/Formoterol 80/4.5 2 puff IH BIDR #1 inhaler 05/18/17 [Symbicort 80/4.5] CloNIDine Patch [Catapres-Tts] 0.1 mg TD Fr@1100 30 Days 05/18/17 patch.tdwk Fluconazole [Diflucan] 200 mg PO DAILY 4 Days tablet 05/18/17 Ipratropium/Albuterol Neb [Duoneb] 3 ml IH Q6HR PRN #100 inhsol 05/18/17 Nitroglycerin 0.4 mg SL Q5MIN PRN #10 tab.subl 05/18/17 Omeprazole [PriLOSEC] 20 mg PO BIDAC #60 capsule. 05/18/17 OxyCODONE/APAP 5/325 [Percocet 1 each PO Q6HR PRN 5 Days #15 05/18/17 5/325 MG] tablet Sucralfate [Carafate] 1 gm PO QIDAC #120 udc 05/18/17 Allergies Allergy/AdvReac Type Severity Reaction Status Date / Time morphine Allergy Vomiting Verified 06/29/17 16:50 Abdominal Pain PMH - Past Medical History Medical history: Reports: CHF, COPD, GERD, hypertension, myocardial infarction Psychiatric history: Reports: no psych history - Social History Smoking status: Current every day smoker Alcohol use: Reports: none Drug use: Reports: marijuana Physical Exam - General Limitations: no limitations General appearance: alert, in no apparent distress Course Vital Signs Temperature 98.3 F 06/29/17 16:50 Pulse Rate 99 04/26/18 16:50 Respiratory Rate 20 06/29/17 16:50 Blood Pressure 122/93 06/29/17 16:50 O2 Sat by Pulse Oximetry 98 06/29/17 16:50 Temperature 98.3 F 06/29/17 16:50 Pulse Rate 99 06/29/17 16:50 Respiratory Rate 20 06/29/17 16:50 Blood Pressure 122/93 06/29/17 16:50 O2 Sat by Pulse Oximetry 98 06/29/17 16:50 Oxygen Delivery Oxygen Delivery Room Air Abdominal Pain - Lab Data Result diagrams: 06/29/17 16:58 06/29/17 16:58 Lab Results 06/29/17 06/29/17 Range/Units 16:58 16:58 WBC 14.2 H (4.3-11.1) K/mcL RBC 5.01 (4.19-5.50) M/mcL Hgb 14.2 (12.9-16.9) g/dL Hct 42.4 (37.5-50.1) % MCV 84.6 (83.0-100.0) fL MCH 28.3 (28.0-33.3) pg MCHC 33.5 (31.6-35.5) g/dL RDW 14.6 H (11.5-14.5) % Plt Count 285 (140-400) K/mcL MPV 9.2 L (9.4-12.4) fL Sodium 137 (136-145) mEq/L Potassium 3.8 (3.5-5.1) mEq/L Chloride 101 (98-107) mEq/L Carbon Dioxide 29 (23-29) mEq/L BUN 11 (6-20) mg/dL Creatinine 0.97 (0.70-1.30) mg/dL Est GFR ( Amer) > 60 (> 60) Est GFR (Non-Af Amer) > 60 (> 60) BUN/Creatinine Ratio 11 (6-26) Glucose 106 H (70-105) mg/dL Calculated Osmolality 284 (280-300) Calcium 9.9 (8.6-10.3) mg/dL Total Bilirubin 0.3 (0.3-1.0) mg/dL Direct Bilirubin 0.1 (0.0-0.2) mg/dL Indirect Bilirubin 0.2 (0.0-1.2) mg/dL AST 19 (13-39) Units/L ALT 19 (7-52) Units/L Alkaline Phosphatase 85 (34-104) Units/L Serum Total Protein 7.3 (6.4-8.9) g/dL Albumin 4.2 (3.5-5.7) g/dL Globulin 3.1 (2.4-3.5) g/dL Albumin/Globulin Ratio 1.4 (1.1-2.2) Lipase 19 (11-82) Units/L Attestation Statement - Attestation Attestation: I, Joni Kelley DO, examined this patient [id number] and my medical decision-making was reviewed with Dr. Wallace Coronel, Resident Physician. I agree with the documented findings, disposition and treatment plan as described except to the extent set forth below. Please see my progress notes for details. 56-year-old male presents to the emergency room with acute onset of abdominal pain. Symptoms of truly been present since she was discharged from the hospital 13 of May after having a bleeding ulcer in his stomach. Patient denies any fevers or chills. Today's had persistent abdominal pain that has lasted for the last 72 hours. Symptoms are so bad at this time that he has diaphoresis, nausea, vomiting, abdominal discomfort and pain. Patient does not have any acute peritoneal-like symptoms on exam he does have tenderness in the epigastrium and left upper quadrant. He does have a healed surgical incision site in the midline has 18 sutures are stable. The sutures were removed without any complication. Patient is tachycardic and diaphoretic and uncomfortable. The nausea medication will be given. Concern is noted for surgical issue versus intra-abdominal related pathology this point. EKG chest x -ray will also be collected secondary to the patient's age medical history recent surgery patient will have detailed evaluation completed this time a CT with IV contrast. Bedside ultrasound will be utilized considering the patient does have epigastric pain and discomfort. No specific history of aneurysm or dissection in the patient or his family. Symptom control be completed. Detailed workup to be established. Patient is otherwise going to require further workup and management. He will be signed out to the nighttime physician Dr. Leal after detailed workup evaluation and discussion will be completed. See detailed documentation of physical exam, medical intervention, medical decision-making and disposition in the resident physician's note. No critical care provider the patient's treatment course at this time. 1900 Patient be signed out to the nighttime physicians Dr. Leal and Dr. Luong. Patient is otherwise stable pain medication provided patient is able o supine after the pain medication was given. Patient will have continuation of care by nighttime physicians. Patient stable at this time.
[2017-06-29] MEDS ORDERED: Pantoprazole 40 MG VIAL IVP ONE (19:39)
--- NOTE | 2017-06-29 19:39 | Emergency Department Note ---
Disposition Clinical Impression: Epigastric pain, Ulcer Abdominal pain Qualifiers: Abdominal location: epigastric Qualified Code(s): R10.13 - Epigastric pain Disposition: Admitted As Inpatient Condition: Fair Referrals: Moe Nam DO [Primary Care Provider] - Forms: ED Satisfaction Letter, Work/School Release Time of Disposition: 20:24 General Adult HPI - General Chief complaint: ED Abdominal Pain Stated complaint: abd/chest pain Time Seen by Provider: 06/29/17 17:59 Source: patient, family Limitations: no limitations - History of Present Illness HPI Narrative: Patient was signed out by the prior provider. Please see their report for complete history and physical. Pain Scale: 9 - Related Data Home Medications Medication Instructions Recorded Confirmed Sucralfate [Carafate] 10 ml PO TID 06/29/17 06/29/17 Previous Rx's Medication Instructions Recorded Aspirin 81 mg PO DAILY #30 tab.chew 05/18/17 Budesonide/Formoterol 80/4.5 2 puff IH BIDR #1 inhaler 05/18/17 [Symbicort 80/4.5] Ipratropium/Albuterol Neb [Duoneb] 3 ml IH Q6HR PRN #100 inhsol 05/18/17 Nitroglycerin 0.4 mg SL Q5MIN PRN #10 tab.subl 05/18/17 Omeprazole [PriLOSEC] 20 mg PO BIDAC #60 capsule.dr 05/18/17 Allergies Allergy/AdvReac Type Severity Reaction Status Date / Time morphine Allergy Vomiting Verified 06/29/17 20:34 Past Medical History - Past Medical History Medical history: Reports: CHF, COPD, GERD, hypertension, myocardial infarction Surgical history: Reports: no surgical history Psychiatric history: Reports: no psych history - Social History Smoking Status: Current every day smoker Smokeless Tobacco Status: No Alcohol use: Reports: none Drug use: Reports: marijuana Physical Exam - General Limitations: no limitations General appearance: alert, in no apparent distress - Eye Eye exam: Present: normal appearance - ENT ENT exam: normal exam - Neck Neck exam: Present: normal inspection - Chest Chest inspection: Present: normal inspection, symmetric chest wall rise - Respiratory Respiratory exam: Present: normal lung sounds bilaterally. Absent: respiratory distress - Cardiovascular Cardiovascular exam: Present: regular rate, normal rhythm. Absent: systolic murmur - Abdominal Exam Abdominal exam: Present: soft, tenderness (Mild tenderness in the epigastrium), other (Well-healed midline incision) - Extremities Exam Extremities exam: Present: normal inspection. Absent: pedal edema - Expanded Lower Extremity Exam Neurovascular/Tendon exam: Present: normal capillary refill - Neurological Exam Neurological exam: Present: alert, oriented X3, CN II-XII intact - Skin Skin exam: Present: warm, dry, intact, normal color Course Course Narrative: Patient is a 56-year-old male with a history of hypertension with recent hospitalization for upper GI bleed with ulcer requiring endoscopy as well as surgery presents for evaluation of abdominal pain chest pain as well as intermittent bloody stools. Patient states he has been having pain since being discharged last month. Patient's pain is located in the epigastrium just underneath his healing incision. Patient's been having some nausea as well as intermittent bright bloody stools. Patient also been having some constipation. At the time of signout the prior provider for recommended admission. Briefly the patient's medical history was reviewed. Patient had an EEG and secondary exploratory laparotomy for perforated 1 ulcer. Patient's been in pain essentially since the discharge date in May. Patient's had intermittent hematochezia. Stool guaiac year was negative per Dr. Davila's exam. Also denies any fissures or hemorrhoids. - Reevaluation(s) Reevaluation #1: Patient seen and examined and confirm the story. Patient states even having pain in the epigastrium since being discharged. Patient's also been having constipation with decreased stools. Decreased urine output. Patient states that he has been having subjective fevers. Time: 19:40 Vital Signs Temperature 98.3 F 06/29/17 16:50 Pulse Rate 99 06/29/17 16:50 Respiratory Rate 20 06/29/17 16:50 Blood Pressure 122/93 06/29/17 16:50 O2 Sat by Pulse Oximetry 98 06/29/17 16:50 Temperature 98.3 F 06/29/17 16:50 Pulse Rate 90 06/29/17 19:53 Respiratory Rate 12 06/29/17 19:53 Blood Pressure 165/129 06/29/17 19:53 O2 Sat by Pulse Oximetry 99 06/29/17 19:53 Oxygen Delivery Oxygen Delivery Room Air Medical Decision Making - [facility] Narrative Medical decision making narrative: Patient presents with acute onset of abdominal pain however the patient did state that he has been having 8 since discharge. Patient did have a surgical history last month where he had a perforated duodenal ulcer. Patient's has reported episodes of hematochezia. Patient had a stool guaiac obtained by Dr. Coronel which was negative. Patient's hemoglobin has trended slightly downward but is relatively stable. Recommendation from the prior provider's were admission. Patient had a CT scan which showed no acute abnormalities. No free air. Given the patient's recent surgical history and reports of hematochezia the patient will be observed in the hospital. Patient also reported some chest pain however the patient did have a recent stress test which was negative for ischemia or infarct. Patient has been having decreased oral intake related to the patient's nausea. The patient did have a slight decrease in his hemoglobin as well as persistent pain the patient should best be observed for trending hemoglobins and a GI consultation on a nonemergent basis. - Lab Data Lab results reviewed: Yes I reviewed the patient's lab results. Result diagrams: 06/29/17 18:29 06/29/17 16:58 Lab Results 06/29/17 06/29/17 06/29/17 Range/Units 16:58 16:58 18:29 WBC 14.2 H 13.8 H (4.3-11.1) K/mcL RBC 5.01 4.79 (4.19-5.50) M/mcL Hgb 14.2 13.6 (12.9-16.9) g/dL Hct 42.4 40.2 (37.5-50.1) % MCV 84.6 83.9 (83.0-100.0) fL MCH 28.3 28.4 (28.0-33.3) pg MCHC 33.5 33.8 (31.6-35.5) g/dL RDW 14.6 H 14.5 (11.5-14.5) % Plt Count 285 269 (140-400) K/mcL MPV 9.2 L 9.4 (9.4-12.4) fL Immature Gran % 0.4 (0-4) % Seg Neutrophils % 70.3 % Lymphocytes % 19.0 % Monocytes % 7.9 % Eosinophils % 2.1 % Basophils % 0.3 % Neutrophils # 9.7 H (1.6-8.9) K/mcL Lymphocytes # 2.6 (0.6-4.6) K/mcL Monocytes # 1.1 (0.0-1.3) K/mcL Eosinophils # 0.3 (0.0-0.6) K/mcL Basophils # 0.0 (0.0-0.2) K/mcL PT (9.4-12.1) Seconds INR Sodium 137 (136-145) mEq/L Potassium 3.8 (3.5-5.1) mEq/L Chloride 101 (98-107) mEq/L Carbon Dioxide 29 (23-29) mEq/L BUN 11 (6-20) mg/dL Creatinine 0.97 (0.70-1.30) mg/dL Est GFR ( Amer) > 60 (> 60) Est GFR (Non-Af Amer) > 60 (> 60) BUN/Creatinine Ratio 11 (6-26) Glucose 106 H (70-105) mg/dL Calculated Osmolality 284 (280-300) Lactic Acid (0.5-2.2) mmol/L Calcium 9.9 (8.6-10.3) mg/dL Total Bilirubin 0.3 (0.3-1.0) mg/dL Direct Bilirubin 0.1 (0.0-0.2) mg/dL Indirect Bilirubin 0.2 (0.0-1.2) mg/dL AST 19 (13-39) Units/L ALT 19 (7-52) Units/L Alkaline Phosphatase 85 (34-104) Units/L Troponin I (< 0.04) ng/mL Serum Total Protein 7.3 (6.4-8.9) g/dL Albumin 4.2 (3.5-5.7) g/dL Globulin 3.1 (2.4-3.5) g/dL Albumin/Globulin Ratio 1.4 (1.1-2.2) Amylase (29-103) Units/L Lipase 19 (11-82) Units/L Urine Color (Yellow) Urine Clarity (Clear) Urine pH (5.0-8.0) pH Units Ur Specific [place] (1.010-1.025) Urine Protein (Neg-Trace) mg/dL Urine Glucose (UA) (Normal) mg/dL Urine Ketones (Negative) mg/dL Urine Blood (Negative) Urine Nitrite (Negative) Urine Bilirubin (Negative) Urine Urobilinogen (Normal) mg/dL Ur Leukocyte Esterase (Negative) Urine Microscopic RBC (0-3) per hpf Urine Microscopic WBC (0-3) per hpf Ur Squamous Epith Cells (None-Few) per lpf Amorphous Sediment (Few) Urine Bacteria (None-Few) per hpf Hyaline Casts (None-Few) per lpf Ur Culture Indicated? (NO) Blood Type Antibody Screen 06/29/17 06/29/17 06/29/17 Range/Units 18:29 18:29 18:29 WBC (4.3-11.1) K/mcL RBC (4.19-5.50) M/mcL Hgb (12.9-16.9) g/dL Hct (37.5-50.1) % MCV (83.0-100.0) fL MCH (28.0-33.3) pg MCHC (31.6-35.5) g/dL RDW (11.5-14.5) % Plt Count (140-400) K/mcL MPV (9.4-12.4) fL Immature Gran % (0-4) % Seg Neutrophils % % Lymphocytes % % Monocytes % % Eosinophils % % Basophils % % Neutrophils # (1.6-8.9) K/mcL Lymphocytes # (0.6-4.6) K/mcL Monocytes # (0.0-1.3) K/mcL Eosinophils # (0.0-0.6) K/mcL Basophils # (0.0-0.2) K/mcL PT 12.3 H (9.4-12.1) Seconds INR 1.1 Sodium (136-145) mEq/L Potassium (3.5-5.1) mEq/L Chloride (98-107) mEq/L Carbon Dioxide (23-29) mEq/L BUN (6-20) mg/dL Creatinine (0.70-1.30) mg/dL Est GFR ( Amer) (> 60) Est GFR (Non-Af Amer) (> 60) BUN/Creatinine Ratio (6-26) Glucose (70-105) mg/dL Calculated Osmolality (280-300) Lactic Acid 1.2 (0.5-2.2) mmol/L Calcium (8.6-10.3) mg/dL Total Bilirubin (0.3-1.0) mg/dL Direct Bilirubin (0.0-0.2) mg/dL Indirect Bilirubin (0.0-1.2) mg/dL AST (13-39) Units/L ALT (7-52) Units/L Alkaline Phosphatase (34-104) Units/L Troponin I < 0.03 (< 0.04) ng/mL Serum Total Protein (6.4-8.9) g/dL Albumin (3.5-5.7) g/dL Globulin (2.4-3.5) g/dL Albumin/Globulin Ratio (1.1-2.2) Amylase 32 (29-103) Units/L Lipase (11-82) Units/L Urine Color (Yellow) Urine Clarity (Clear) Urine pH (5.0-8.0) pH Units Ur Specific [place] (1.010-1.025) Urine Protein (Neg-Trace) mg/dL Urine Glucose (UA) (Normal) mg/dL Urine Ketones (Negative) mg/dL Urine Blood (Negative) Urine Nitrite (Negative) Urine Bilirubin (Negative) Urine Urobilinogen (Normal) mg/dL Ur Leukocyte Esterase (Negative) Urine Microscopic RBC (0-3) per hpf Urine Microscopic WBC (0-3) per hpf Ur Squamous Epith Cells (None-Few) per lpf Amorphous Sediment (Few) Urine Bacteria (None-Few) per hpf Hyaline Casts (None-Few) per lpf Ur Culture Indicated? (NO) Blood Type Antibody Screen 06/29/17 06/29/17 Range/Units 19:57 20:10 WBC (4.3-11.1) K/mcL RBC (4.19-5.50) M/mcL Hgb (12.9-16.9) g/dL Hct (37.5-50.1) % MCV (83.0-100.0) fL MCH (28.0-33.3) pg MCHC (31.6-35.5) g/dL RDW (11.5-14.5) % Plt Count (140-400) K/mcL MPV (9.4-12.4) fL Immature Gran % (0-4) % Seg Neutrophils % % Lymphocytes % % Monocytes % % Eosinophils % % Basophils % % Neutrophils # (1.6-8.9) K/mcL Lymphocytes # (0.6-4.6) K/mcL Monocytes # (0.0-1.3) K/mcL Eosinophils # (0.0-0.6) K/mcL Basophils # (0.0-0.2) K/mcL PT (9.4-12.1) Seconds INR Sodium (136-145) mEq/L Potassium (3.5-5.1) mEq/L Chloride (98-107) mEq/L Carbon Dioxide (23-29) mEq/L BUN (6-20) mg/dL Creatinine (0.70-1.30) mg/dL Est GFR ( Amer) (> 60) Est GFR (Non-Af Amer) (> 60) BUN/Creatinine Ratio (6-26) Glucose (70-105) mg/dL Calculated Osmolality (280-300) Lactic Acid (0.5-2.2) mmol/L Calcium (8.6-10.3) mg/dL Total Bilirubin (0.3-1.0) mg/dL Direct Bilirubin (0.0-0.2) mg/dL Indirect Bilirubin (0.0-1.2) mg/dL AST (13-39) Units/L ALT (7-52) Units/L Alkaline Phosphatase (34-104) Units/L Troponin I (< 0.04) ng/mL Serum Total Protein (6.4-8.9) g/dL Albumin (3.5-5.7) g/dL Globulin (2.4-3.5) g/dL Albumin/Globulin Ratio (1.1-2.2) Amylase (29-103) Units/L Lipase (11-82) Units/L Urine Color Yellow (Yellow) Urine Clarity Cloudy A (Clear) Urine pH 7.5 (5.0-8.0) pH Units Ur Specific [place] > 1.030 H (1.010-1.025) Urine Protein Negative (Neg-Trace) mg/dL Urine Glucose (UA) Normal (Normal) mg/dL Urine Ketones Negative (Negative) mg/dL Urine Blood Negative (Negative) Urine Nitrite Negative (Negative) Urine Bilirubin Negative (Negative) Urine Urobilinogen Normal (Normal) mg/dL Ur Leukocyte Esterase Negative (Negative) Urine Microscopic RBC 0-3 (0-3) per hpf Urine Microscopic WBC 0-3 (0-3) per hpf Ur Squamous Epith Cells Few (None-Few) per lpf Amorphous Sediment Few (Few) Urine Bacteria None Seen (None-Few) per hpf Hyaline Casts None Seen (None-Few) per lpf Ur Culture Indicated? NO (NO) Blood Type O POSITIVE Antibody Screen NEGATIVE - Radiology Data Radiology results reviewed: Yes I reviewed the patient's radiology results. Abdomen/Pelvis CT 06/29/17 18:08 IMPRESSION: No evidence for acute intra-abdominal or intrapelvic pathology. No bowel obstruction or inflammation. No free intraperitoneal air or fluid. No evidence for urinary obstruction. D/ / Aj Real MD / Aj Real MD Interpreting Provider: Aj Real MD Chest X-Ray 06/29/17 18:15 IMPRESSION: No acute process. D/ / Luis Enrique Leon MD / Luis Enrique Leon MD Interpreting Provider: Luis Enrique Leon MD S.Irma - [place] Situation: Demographics Background: Presenting Complaint Assessment: Vital Signs, Patient/Family Expectation Recommendation: Barrier(s) to disposition, Recommendation based on pending studies, treatments, or consults S.B.Donnie Report Given to: Dr. Lorenzo Castano Repor Time: 20:54
--- NOTE | 2017-06-29 20:10 | Emergency Department Note ---
Disposition Clinical Impression: Epigastric pain, Ulcer Abdominal pain Qualifiers: Abdominal location: epigastric Qualified Code(s): R10.13 - Epigastric pain Disposition: Admitted As Inpatient Condition: Fair Referrals: Moe Nam DO [Primary Care Provider] - Forms: ED Satisfaction Letter, Work/School Release General Adult HPI - General Chief complaint: ED Abdominal Pain Stated complaint: abd/chest pain Time Seen by Provider: 06/29/17 17:59 Source: patient, family Limitations: no limitations Nursing Notes Reviewed: Yes Vital Signs Reviewed: Yes - History of Present Illness Pain Scale: 9 - Related Data Home Medications Medication Instructions Recorded Confirmed Sucralfate [Carafate] 10 ml PO TID 06/29/17 06/29/17 Previous Rx's Medication Instructions Recorded Aspirin 81 mg PO DAILY #30 tab.chew 05/18/17 Budesonide/Formoterol 80/4.5 2 puff IH BIDR #1 inhaler 05/18/17 [Symbicort 80/4.5] Ipratropium/Albuterol Neb [Duoneb] 3 ml IH Q6HR PRN #100 inhsol 05/18/17 Nitroglycerin 0.4 mg SL Q5MIN PRN #10 tab.subl 05/18/17 Omeprazole [PriLOSEC] 20 mg PO BIDAC #60 capsule. 05/18/17 Allergies Allergy/AdvReac Type Severity Reaction Status Date / Time morphine Allergy Vomiting Verified 06/29/17 20:34 Past Medical History - Past Medical History Medical history: Reports: CHF, COPD, GERD, hypertension, myocardial infarction Surgical history: Reports: no surgical history Psychiatric history: Reports: no psych history - Social History Smoking Status: Current every day smoker Smokeless Tobacco Status: No Alcohol use: Reports: none Drug use: Reports: marijuana Physical Exam - General Limitations: no limitations General appearance: alert, in no apparent distress Course Vital Signs Temperature 98.3 F 06/29/17 16:50 Pulse Rate 99 06/29/17 16:50 Respiratory Rate 20 06/29/17 16:50 Blood Pressure 122/93 06/29/17 16:50 O2 Sat by Pulse Oximetry 98 06/29/17 16:50 Temperature 98.3 F 06/29/17 16:50 Pulse Rate 90 06/29/17 19:53 Respiratory Rate 12 06/29/17 19:53 Blood Pressure 165/129 06/29/17 19:53 O2 Sat by Pulse Oximetry 99 06/29/17 19:53 Oxygen Delivery Oxygen Delivery Room Air Medical Decision Making - Lab Data Result diagrams: 06/29/17 18:29 06/29/17 16:58 Lab Results 06/29/17 06/29/17 06/29/17 Range/Units 16:58 16:58 18:29 WBC 14.2 H 13.8 H (4.3-11.1) K/mcL RBC 5.01 4.79 (4.19-5.50) M/mcL Hgb 14.2 13.6 (12.9-16.9) g/dL Hct 42.4 40.2 (37.5-50.1) % MCV 84.6 83.9 (83.0-100.0) fL MCH 28.3 28.4 (28.0-33.3) pg MCHC 33.5 33.8 (31.6-35.5) g/dL RDW 14.6 H 14.5 (11.5-14.5) % Plt Count 285 269 (140-400) K/mcL MPV 9.2 L 9.4 (9.4-12.4) fL Immature Gran % 0.4 (0-4) % Seg Neutrophils % 70.3 % Lymphocytes % 19.0 % Monocytes % 7.9 % Eosinophils % 2.1 % Basophils % 0.3 % Neutrophils # 9.7 H (1.6-8.9) K/mcL Lymphocytes # 2.6 (0.6-4.6) K/mcL Monocytes # 1.1 (0.0-1.3) K/mcL Eosinophils # 0.3 (0.0-0.6) K/mcL Basophils # 0.0 (0.0-0.2) K/mcL PT (9.4-12.1) Seconds INR Sodium 137 (136-145) mEq/L Potassium 3.8 (3.5-5.1) mEq/L Chloride 101 (98-107) mEq/L Carbon Dioxide 29 (23-29) mEq/L BUN 11 (6-20) mg/dL Creatinine 0.97 (0.70-1.30) mg/dL Est GFR ( Amer) > 60 (> 60) Est GFR (Non-Af Amer) > 60 (> 60) BUN/Creatinine Ratio 11 (6-26) Glucose 106 H (70-105) mg/dL Calculated Osmolality 284 (280-300) Lactic Acid (0.5-2.2) mmol/L Calcium 9.9 (8.6-10.3) mg/dL Total Bilirubin 0.3 (0.3-1.0) mg/dL Direct Bilirubin 0.1 (0.0-0.2) mg/dL Indirect Bilirubin 0.2 (0.0-1.2) mg/dL AST 19 (13-39) Units/L ALT 19 (7-52) Units/L Alkaline Phosphatase 85 (34-104) Units/L Troponin I (< 0.04) ng/mL Serum Total Protein 7.3 (6.4-8.9) g/dL Albumin 4.2 (3.5-5.7) g/dL Globulin 3.1 (2.4-3.5) g/dL Albumin/Globulin Ratio 1.4 (1.1-2.2) Amylase (29-103) Units/L Lipase 19 (11-82) Units/L Urine Color (Yellow) Urine Clarity (Clear) Urine pH (5.0-8.0) pH Units Ur Specific [place] (1.010-1.025) Urine Protein (Neg-Trace) mg/dL Urine Glucose (UA) (Normal) mg/dL Urine Ketones (Negative) mg/dL Urine Blood (Negative) Urine Nitrite (Negative) Urine Bilirubin (Negative) Urine Urobilinogen (Normal) mg/dL Ur Leukocyte Esterase (Negative) Urine Microscopic RBC (0-3) per hpf Urine Microscopic WBC (0-3) per hpf Ur Squamous Epith Cells (None-Few) per lpf Amorphous Sediment (Few) Urine Bacteria (None-Few) per hpf Hyaline Casts (None-Few) per lpf Ur Culture Indicated? (NO) Blood Type Antibody Screen 06/29/17 06/29/17 06/29/17 Range/Units 18:29 18:29 18:29 WBC (4.3-11.1) K/mcL RBC (4.19-5.50) M/mcL Hgb (12.9-16.9) g/dL Hct (37.5-50.1) % MCV (83.0-100.0) fL MCH (28.0-33.3) pg MCHC (31.6-35.5) g/dL RDW (11.5-14.5) % Plt Count (140-400) K/mcL MPV (9.4-12.4) fL Immature Gran % (0-4) % Seg Neutrophils % % Lymphocytes % % Monocytes % % Eosinophils % % Basophils % % Neutrophils # (1.6-8.9) K/mcL Lymphocytes # (0.6-4.6) K/mcL Monocytes # (0.0-1.3) K/mcL Eosinophils # (0.0-0.6) K/mcL Basophils # (0.0-0.2) K/mcL PT 12.3 H (9.4-12.1) Seconds INR 1.1 Sodium (136-145) mEq/L Potassium (3.5-5.1) mEq/L Chloride (98-107) mEq/L Carbon Dioxide (23-29) mEq/L BUN (6-20) mg/dL Creatinine (0.70-1.30) mg/dL Est GFR ( Amer) (> 60) Est GFR (Non-Af Amer) (> 60) BUN/Creatinine Ratio (6-26) Glucose (70-105) mg/dL Calculated Osmolality (280-300) Lactic Acid 1.2 (0.5-2.2) mmol/L Calcium (8.6-10.3) mg/dL Total Bilirubin (0.3-1.0) mg/dL Direct Bilirubin (0.0-0.2) mg/dL Indirect Bilirubin (0.0-1.2) mg/dL AST (13-39) Units/L ALT (7-52) Units/L Alkaline Phosphatase (34-104) Units/L Troponin I < 0.03 (< 0.04) ng/mL Serum Total Protein (6.4-8.9) g/dL Albumin (3.5-5.7) g/dL Globulin (2.4-3.5) g/dL Albumin/Globulin Ratio (1.1-2.2) Amylase 32 (29-103) Units/L Lipase (11-82) Units/L Urine Color (Yellow) Urine Clarity (Clear) Urine pH (5.0-8.0) pH Units Ur Specific [place] (1.010-1.025) Urine Protein (Neg-Trace) mg/dL Urine Glucose (UA) (Normal) mg/dL Urine Ketones (Negative) mg/dL Urine Blood (Negative) Urine Nitrite (Negative) Urine Bilirubin (Negative) Urine Urobilinogen (Normal) mg/dL Ur Leukocyte Esterase (Negative) Urine Microscopic RBC (0-3) per hpf Urine Microscopic WBC (0-3) per hpf Ur Squamous Epith Cells (None-Few) per lpf Amorphous Sediment (Few) Urine Bacteria (None-Few) per hpf Hyaline Casts (None-Few) per lpf Ur Culture Indicated? (NO) Blood Type Antibody Screen 06/29/17 06/29/17 Range/Units 19:57 20:10 WBC (4.3-11.1) K/mcL RBC (4.19-5.50) M/mcL Hgb (12.9-16.9) g/dL Hct (37.5-50.1) % MCV (83.0-100.0) fL MCH (28.0-33.3) pg MCHC (31.6-35.5) g/dL RDW (11.5-14.5) % Plt Count (140-400) K/mcL MPV (9.4-12.4) fL Immature Gran % (0-4) % Seg Neutrophils % % Lymphocytes % % Monocytes % % Eosinophils % % Basophils % % Neutrophils # (1.6-8.9) K/mcL Lymphocytes # (0.6-4.6) K/mcL Monocytes # (0.0-1.3) K/mcL Eosinophils # (0.0-0.6) K/mcL Basophils # (0.0-0.2) K/mcL PT (9.4-12.1) Seconds INR Sodium (136-145) mEq/L Potassium (3.5-5.1) mEq/L Chloride (98-107) mEq/L Carbon Dioxide (23-29) mEq/L BUN (6-20) mg/dL Creatinine (0.70-1.30) mg/dL Est GFR ( Amer) (> 60) Est GFR (Non-Af Amer) (> 60) BUN/Creatinine Ratio (6-26) Glucose (70-105) mg/dL Calculated Osmolality (280-300) Lactic Acid (0.5-2.2) mmol/L Calcium (8.6-10.3) mg/dL Total Bilirubin (0.3-1.0) mg/dL Direct Bilirubin (0.0-0.2) mg/dL Indirect Bilirubin (0.0-1.2) mg/dL AST (13-39) Units/L ALT (7-52) Units/L Alkaline Phosphatase (34-104) Units/L Troponin I (< 0.04) ng/mL Serum Total Protein (6.4-8.9) g/dL Albumin (3.5-5.7) g/dL Globulin (2.4-3.5) g/dL Albumin/Globulin Ratio (1.1-2.2) Amylase (29-103) Units/L Lipase (11-82) Units/L Urine Color Yellow (Yellow) Urine Clarity Cloudy A (Clear) Urine pH 7.5 (5.0-8.0) pH Units Ur Specific [place] > 1.030 H (1.010-1.025) Urine Protein Negative (Neg-Trace) mg/dL Urine Glucose (UA) Normal (Normal) mg/dL Urine Ketones Negative (Negative) mg/dL Urine Blood Negative (Negative) Urine Nitrite Negative (Negative) Urine Bilirubin Negative (Negative) Urine Urobilinogen Normal (Normal) mg/dL Ur Leukocyte Esterase Negative (Negative) Urine Microscopic RBC 0-3 (0-3) per hpf Urine Microscopic WBC 0-3 (0-3) per hpf Ur Squamous Epith Cells Few (None-Few) per lpf Amorphous Sediment Few (Few) Urine Bacteria None Seen (None-Few) per hpf Hyaline Casts None Seen (None-Few) per lpf Ur Culture Indicated? NO (NO) Blood Type O POSITIVE Antibody Screen NEGATIVE Attestation Statement - Attestation Attestation: I, Keagan Leal MD, personally evaluated this patient and discussed their management with the resident physician. I reviewed the resident's note and agree with the documented findings, medical decision making, and plan of care. This patient was signed out at shift change from Dr. Coronel and Dr. Kelley. Please refer to their notes for complete details of the history and physical examination. Patient presented with severe abdominal pain with diaphoresis and tachycardia. Patient had an upper endoscopy with gastric biopsy which then developed some bleeding and patient had an open laparotomy for control of his hemorrhage. He was discharged from the hospital after this about 6 weeks ago but has continued to have intermittent epigastric and left upper quadrant pain since then. Over the past 3 days the pain has become much more severe and constant. He has had nausea and vomiting and unable to keep anything down. He also had some intermittent episodes of hematochezia or bright red blood. On examination patient is a well-developed well-nourished male in no acute distress but does appear to be in moderate discomfort. He is alert and oriented 3. There is no cyanosis or diaphoresis. Breath sounds are clear and equal bilaterally. Heart regular rate and rhythm. Abdomen is soft with present bowel sounds. There is marked left upper quadrant tenderness on direct palpation with guarding. Labs reviewed. No acute abnormality on CT of the abdomen and pelvis. The hospitalist, Dr. Ventura, was consulted and accepted admission of the patient.
[2017-06-29] MEDS ORDERED: *HR* OxyCODONE/APAP 10/325 TABLET PO ONE (20:14)
[2017-06-29 20:17] LABS: Bilirubin,Urine Negative (Negative); Blood,Urine Negative (Negative); Clarity,Urine Cloudy (Clear); Color,Urine Yellow (Yellow); Glucose,Urine (UA) Normal (Normal); Ketones,Urine Negative (Negative); Leukocyte Esterase,Urine Negative (Negative); Nitrite,Urine Negative (Negative); PH,Urine 7.5 pH Units (5.0-8.0); Protein,Urine Negative (Neg-Trace); Specific Gravity,Urine > 1.030 (1.010-1.025); Urobilinogen,Urine Normal (Normal)
[2017-06-29 20:28] LABS: Amorphous Sediment,Urine Few (Few); Hyaline Casts,Urine None Seen per lpf (None-Few); RBC,Urine 0-3 per hpf (0-3); Squamous Epithelial Cell,Urine Few per lpf (None-Few); WBC,Urine 0-3 per hpf (0-3)
[2017-06-29 20:29] LABS: Bacteria,Urine None Seen per hpf (None-Few)
[2017-06-29] MEDS ORDERED: GI Cocktail 40 ML EACH PO ONE (20:55)
[2017-06-30] MEDS ORDERED: Naloxone 0.4 MG/ML INJ IVP PRN (00:06)
[2017-06-30] MEDS ORDERED: Nitroglycerin 0.4 MG TAB.SUBL SL PRN (00:07)
[2017-06-30] MEDS ORDERED: Ipratropium/Albuterol Neb 3 ML IH PRN (00:07)
--- NOTE | 2017-06-30 00:10 | Internal Med History&Physical ---
<Jc Astudillo - Last Filed: 06/30/17 01:00> Date of Encounter: 06/30/17 Time of Encounter: 00:09 Internal Medicine - H&P: HPI Chief complaint: Abdominal pain and rectal bleeding Admitted From: Emergency Dept Plans for Post Hospital Care: Home History of present illness: Mr. Ivy is a 56 year old male with history of CHF, COPD, GERD, hypertension , [place], recent admission for GI bleed who presents to the ED due to acute abdominal pain and bright red blood per rectum. The patient was recently admitted to [facility] for GI bleed at which time he required EGD with clipping of gastric ulcer, and then subsequently an exploratory laparotomy for possible perforation which was negative at that time. He says that since he left the hospital on 05/13/17, he has not had any days where his pain was 0. He said that he has had continuous abdominal pain since that time, which has recently gotten worse. He says that approximately 3 days ago he began having acute abdominal pain following an episode where he was moving boxes. He apparently has been moving houses and is trying to be actively involved in the process. He says that since that time he has had intense epigastric abdominal pain with nausea and vomiting after eating. He feels as though he cannot keep any food down and generally about 10 minutes after eating vomits the food up. Nothing seems to make this pain any better or worse, and he describes the pain as a constant dull pain with a sharp stabbing pain intermittently that is approximately 8/10 in severity. In addition to this , the patient says that he has been constipated since he originally left the hospital. In his bowel movements, he has noted that he has had significant amounts of bright red blood especially in the past 3 days. The pain is not associated with shortness of breath or chest pain, however he does admit to having these at baseline. When he is able to pass a bowel movement since generally hard and small, which are not associated with localized pain. He has not had one of these bowel movements in the past 24 hours. He has not taken anything for this. He denies any other symptoms at this time. Past Med Surg Social Fam HX - Past Medical History Medical history: CHF, COPD, GERD, hypertension, myocardial infarction Psychiatric history: no psych history - Past Surgical History Surgical History: no surgical history - Social History Smoking Status: Current every day smoker Smokeless Tobacco Status: No Alcohol use: none Drug use: marijuana Internal Medicine - H&P: Meds Aspirin 81 mg PO DAILY #30 tab.chew 05/18/17 [Rx] Budesonide/Formoterol 80/4.5 [Symbicort 80/4.5] 2 puff IH BIDR #1 inhaler 05/18 [Rx] Ipratropium/Albuterol Neb [Duoneb] 3 ml IH Q6HR PRN #100 inhsol 05/18/17 [Rx] Nitroglycerin 0.4 mg SL Q5MIN PRN #10 tab.subl 05/18/17 [Rx] Omeprazole [PriLOSEC] 20 mg PO BIDAC #60 capsule.dr 05/18/17 [Rx] Sucralfate [Carafate] 10 ml PO TID 06/29/17 [History] 3 Allergy/AdvReac Type Severity Reaction Status Date / Time morphine Allergy Vomiting Verified 06/29/17 20:34 All Systems PM: A 10-system review of systems was performed and is negative for pertinent findings except as documented above in the HPI. Review of systems: Constitutional: Denies fevers, chills, weight loss, generalized fatigue Head/Neck: Denies MEDINA, neck stiffness EENT: Denies vision changes/blurriness, rhinorrhea, congestion, sore throat CVS: Admits to occasional chest pain with shortness of breath which is instantaneous and shooting and then resolve Pulm: Admits to shortness of breath on minimal exertion. Admits to some wheezing which is relieved by breathing treatments at home GI: Admits to nausea and vomiting following eating, epigastric tenderness constantly, bright red blood per rectum. Denies hematemesis or coffee-ground emesis : Denies dysuria, increased frequency, urgency, hematuria Heme: Denies ease of bleeding or bruising MSK: Denies joint pain, limited ROM Skin: Denies rashes, ulcers, color changes Neuro: Denies MEDINA, paresthesias, focal deficits, ataxia - Constitutional Vitals: Temp Pulse Resp BP Pulse Ox 98.0 F 79 17 114/84 96 06/29/17 23:15 06/29/17 23:15 06/29/17 23:15 06/29/17 23:15 06/29/17 23:15 Exam: Gen: Vitals noted. No acute distress. HEENT: oropharynx clear, Normocephalic, atraumatic Neck: Supple. No adenopathy. Cardiac: RRR, no murmur, +S1/S2 Pulmonary: Scattered inspiratory wheezes Abdomen: soft, significant tenderness to palpation in the epigastric region as well as the upper quadrants in general. Some voluntary guarding is in place minimal involuntary guarding. There is a midline incision consistent with previous laparotomy which appears to be healing appropriately Back: Nontender throughout. MSK: ROM intact, no joint swelling noted Extremities: no BLE edema, nontender calf, no cyanosis or clubbing Neuro: A&Ox3, moves all extremities, no focal deficits Psych: Appropriate mood and behavior Internal Med - H&P Results - Labs CBC & Chem 7: 06/29/17 18:29 06/29/17 16:58 - Assessment and plan (1) Epigastric pain Current Visit: Yes Status: Acute Assessment and plan: Epigastric pain, likely secondary to gastric ulcer Patient does have history of gastric ulcers with him blood loss Patient admits to right red blood per rectum Currently stable, abdomen is soft but tender CT of the abdomen does not demonstrate any acute abnormality I believe obstruction is unlikely The patient has personally requested that surgery be consultated, refuses GI consult I will consult general surgery in the morning (2) Ulcer Current Visit: Yes Status: Suspected Assessment and plan: Suspected gastric ulcer I will start the patient on twice a day IV Protonix Stool guaiac year was negative in ED NPO for surgical evaluation in the morning I will treat the patients pain with SL oxycodone and PO Carafate (3) Status post exploratory laparotomy Current Visit: No Status: Resolved Assessment and plan: S/P exploratory laparotomy on prior admission (4) COPD (chronic obstructive pulmonary disease) Current Visit: Yes Status: Acute Assessment and plan: COPD not in current exacerbation We will continue home inhalers Duonebs as needed Qualifiers: COPD type: chronic bronchitis Chronic bronchitis type: simple Qualified Code(s): J41.0 - Simple chronic bronchitis (5) DVT prophylaxis Current Visit: No Status: Acute Assessment and plan: Possible GI bleed, Heparin is not appropriate I will start SCDs pending surgical consult - Time Spent With Patient Total time spent is greater than 50% in coordination of care (as documented) at patient's floor/unit and/or counseling patient: <Jose Castellon - Last Filed: 06/30/17 06:30> Date of Encounter: 06/30/17 Internal Medicine - H&P: HPI History of present illness: Mr. Ivy is a 56 year old male Past Med Surg Social Fam HX - Family History Mother Name: Naila Corral Age: 76 Living Status: Still Living Father Name: Alberto Corral Living Status: Age at : 62 Cause of : [place] Hx Family Cardiac Disorders: Yes Hx Family Respiratory Disorders: Yes All Systems PM: A 10-system review of systems was performed and is negative for pertinent findings except as documented above in the HPI. - Constitutional Vitals: Temp Pulse Resp BP Pulse Ox 98.2 F 67 14 128/77 96 06/30/17 03:46 06/30/17 03:46 06/30/17 03:46 06/30/17 03:46 06/30/17 03:46 Internal Med - H&P Results - Labs CBC & Chem 7: 06/30/17 04:48 06/30/17 04:48 Labs: Short CBC 06/30/17 Range/Units 04:48 WBC 11.3 H (4.3-11.1) K/mcL Hgb 12.7 L (12.9-16.9) g/dL Hct 38.1 (37.5-50.1) % Plt Count 244 (140-400) K/mcL Neutrophils # 7.2 (1.6-8.9) K/mcL BMP 06/30/17 04:48 Sodium 139 Potassium 3.7 Chloride 107 Carbon Dioxide 25 BUN 9 Creatinine 0.84 Glucose 99 Calcium 8.9 - Attending Attestation I examined this patient and my medical decision-making was reviewed with the Resident Physician. I agree with the documented findings, disposition and treatment plan as described except to the extent set forth below. - Time Spent With Patient Total time spent is greater than 50% in coordination of care (as documented) at patient's floor/unit and/or counseling patient:
[2017-06-30] MEDS: OXYCODONE Oral CONC 10 MG/0.5 ML ORAL.SYG SL PRN ×5 (01:47→20:52)
[2017-06-30 05:21] LABS: Basophils # 0.1 K/mcL (0.0-0.2); Basophils % 0.4 %; Eosinophils # 0.2 K/mcL (0.0-0.6); Hematocrit 38.1 % (37.5-50.1); Hemoglobin 12.7 g/dL (12.9-16.9); Immature Granulocytes % 0.4 % (0-4); Lymphocytes % 26.9 %; Mean Corpuscular HGB Conc 33.3 g/dL (31.6-35.5); Mean Corpuscular Hemoglobin 28.3 pg (28.0-33.3); Mean Platelet Volume 9.7 fL (9.4-12.4); Monocytes # 0.8 K/mcL (0.0-1.3); Monocytes % 6.6 %; Neutrophils # 7.2 K/mcL (1.6-8.9); Platelet Count 244 K/mcL (140-400); Red Blood Count 4.48 M/mcL (4.19-5.50); Red Cell Distribution Width 14.7 % (11.5-14.5); Segmented Neutrophils % 63.7 %
[2017-06-30 05:33] LABS: INR 1.1
[2017-06-30 05:39] LABS: BUN/Creatinine Ratio 11 (6-26); Blood Urea Nitrogen 9 mg/dL (6-20); Calcium 8.9 mg/dL (8.6-10.3); Carbon Dioxide 25 mEq/L (23-29); Chloride 107 mEq/L (98-107); Glucose 99 mg/dL (70-105); Magnesium 2.2 mg/dL (1.6-2.6); Osmolality,Calculated 287 (280-300); Potassium 3.7 mEq/L (3.5-5.1); Sodium 139 mEq/L (136-145); eGFR For African Americans > 60 (> 60); eGFR For Non-African Americans > 60 (> 60)
[2017-06-30] MEDS: Pantoprazole 40 MG VIAL IVP SCH ×2 (06:12→16:22)
[2017-06-30] MEDS: Budesonide/Formoterol 80/4.5 MDI IH SCH ×2 (07:49→20:06)
--- NOTE | 2017-06-30 10:59 | General Surgery Consult Note ---
Addendum entered and electronically signed by Alton Miles DO 06/30/17 17:09: duodenal ulcer, oozing; Protonix gtt, carafate Original Note: <Alton Miles - Last Filed: 06/30/17 11:18> Date of Encounter: 06/30/17 Time of Encounter: 09:00 Assessment and Plan (1) Abdominal pain Current Visit: Yes Status: Acute CT unremarkable Recent EGD 05/11 shows normal esophagus, hiatal hernia, oozing cratered duodenal ulcer, cauterized, normal stomach mucosa, Questionable compliance to PPI therapy; reports ongoing carafate use Hgb 12.7 (13.6); physical exam shows tender epigastric abd, no rigidity Plan: NPO, IV fluids EGD with Dr. Delcid this afternoon Negative stool guaiac test in ED; outpatient follow-up for colonoscopy date Qualifiers: Abdominal location: epigastric Qualified Code(s): R10.13 - Epigastric pain History of Present Illness Consult date: 06/30/17 Reason for consult: other (abdominal pain, bld per rectum) Requesting physician: Jose Castellon History of present illness: Interval history: Mr. Ivy is a 56 year old male with history of GERD, HTN, COPD, [place], with recent admission for GI bleed, EGD, and ex lap negative for perforation who presented to [facility] E[facility] with 3 days of worsening abdominal pain and bright red blood per rectum. He has been having abd pain since May, ongoing GERD prior to that. He reports his bld per rectum occurred after hard stool passage on Monday and Monday, and has had 1 BM since then that was still hard but not bloodly. He has been having sharp epigastric abdominal pain after eating, he is unable to keep his food down since 3 days ago, onset coinciding with moving heavy boxes into his camper. He denies dizziness, shortness of breath, syncope, or fever. He received a GI cocktail and zofran in the ED, has been NPO since, has not vomited since. His last BM was 2 days ago, he is not not any stool softeners. He has never had a colonoscopy. He is not on anticoagulation. Past Med Surg Social Fam HX - Past Medical History Medical history: CHF, COPD, GERD, hypertension, myocardial infarction Psychiatric history: no psych history - Past Surgical History Surgical History: no surgical history - Social History Smoking Status: Current every day smoker Packs per day: 1/2 Smokeless Tobacco Status: No Alcohol use: none Drug use: marijuana - Family History Mother Name: Naila Corral Age: 76 Living Status: Still Living Father Name: Alberto Corral Living Status: Age at : 62 Cause of : [place] Hx Family Cardiac Disorders: Yes Hx Family Respiratory Disorders: Yes Medications and Allergies Aspirin 81 mg PO DAILY #30 tab.chew 05/18/17 [Rx] Budesonide/Formoterol 80/4.5 [Symbicort 80/4.5] 2 puff IH BIDR #1 inhaler 05/18 [Rx] Ipratropium/Albuterol Neb [Duoneb] 3 ml IH Q6HR PRN #100 inhsol 05/18/17 [Rx] Nitroglycerin 0.4 mg SL Q5MIN PRN #10 tab.subl 05/18/17 [Rx] Omeprazole [PriLOSEC] 20 mg PO BIDAC #60 capsule.dr 05/18/17 [Rx] Sucralfate [Carafate] 10 ml PO TID 06/29/17 [History] 3 Allergy/AdvReac Type Severity Reaction Status Date / Time morphine Allergy Vomiting Verified 06/29/17 20:34 Review of Systems All systems PM: The remainder of the systems were reviewed and are negative General Surgery Exam Initial Vital Signs Temp Pulse Resp BP Pulse Ox 98.3 F 99 20 122/93 98 06/29/17 16:50 06/29/17 16:50 06/29/17 16:50 06/29/17 16:50 06/29/17 16:50 Exam Initial Vital Signs Temp Pulse Resp BP Pulse Ox 98.3 F 99 20 122/93 98 06/29/17 16:50 06/29/17 16:50 06/29/17 16:50 06/29/17 16:50 06/29/17 16:50 Results - Labs 06/30/17 04:48 06/30/17 04:48 Abnormal lab results WBC 11.3 K/mcL (4.3-11.1) H 06/30/17 04:48 Hgb 12.7 g/dL (12.9-16.9) L 06/30/17 04:48 RDW 14.7 % (11.5-14.5) H 06/30/17 04:48 Urine Clarity Cloudy (Clear) A 06/29/17 20:10 Ur Specific [place] > 1.030 (1.010-1.025) H 06/29/17 20:10 Diabetes panel 06/30/17 Range/Units 04:48 Sodium 139 (136-145) mEq/L Potassium 3.7 (3.5-5.1) mEq/L Chloride 107 (98-107) mEq/L Carbon Dioxide 25 (23-29) mEq/L BUN 9 (6-20) mg/dL Creatinine 0.84 (0.70-1.30) mg/dL Glucose 99 (70-105) mg/dL Calcium 8.9 (8.6-10.3) mg/dL Calcium panel 06/30/17 Range/Units 04:48 Calcium 8.9 (8.6-10.3) mg/dL Pituitary panel 06/30/17 Range/Units 04:48 Sodium 139 (136-145) mEq/L Potassium 3.7 (3.5-5.1) mEq/L Chloride 107 (98-107) mEq/L Carbon Dioxide 25 (23-29) mEq/L BUN 9 (6-20) mg/dL Creatinine 0.84 (0.70-1.30) mg/dL Glucose 99 (70-105) mg/dL Calcium 8.9 (8.6-10.3) mg/dL Adrenal panel 06/30/17 Range/Units 04:48 Sodium 139 (136-145) mEq/L Potassium 3.7 (3.5-5.1) mEq/L Chloride 107 (98-107) mEq/L Carbon Dioxide 25 (23-29) mEq/L BUN 9 (6-20) mg/dL Creatinine 0.84 (0.70-1.30) mg/dL Glucose 99 (70-105) mg/dL Calcium 8.9 (8.6-10.3) mg/dL All other labs normal. Consult Discharge Plan - Plan Referrals: Moe Nam DO [Primary Care Provider] - 07/24/17 2:00 pm <Curtis Delcid - Last Filed: 06/30/17 17:36> Date of Encounter: 06/30/17 Review of Systems All systems PM: The remainder of the systems were reviewed and are negative General Surgery Exam Initial Vital Signs Temp Pulse Resp BP Pulse Ox 98.3 F 99 20 122/93 98 06/29/17 16:50 06/29/17 16:50 06/29/17 16:50 06/29/17 16:50 06/29/17 16:50 Exam Initial Vital Signs Temp Pulse Resp BP Pulse Ox 98.3 F 99 20 122/93 98 06/29/17 16:50 06/29/17 16:50 06/29/17 16:50 06/29/17 16:50 06/29/17 16:50 Results - Labs 06/30/17 04:48 06/30/17 04:48 Abnormal lab results WBC 11.3 K/mcL (4.3-11.1) H 06/30/17 04:48 Hgb 12.7 g/dL (12.9-16.9) L 06/30/17 04:48 RDW 14.7 % (11.5-14.5) H 06/30/17 04:48 Urine Clarity Cloudy (Clear) A 06/29/17 20:10 Ur Specific [place] > 1.030 (1.010-1.025) H 06/29/17 20:10 Diabetes panel 06/30/17 Range/Units 04:48 Sodium 139 (136-145) mEq/L Potassium 3.7 (3.5-5.1) mEq/L Chloride 107 (98-107) mEq/L Carbon Dioxide 25 (23-29) mEq/L BUN 9 (6-20) mg/dL Creatinine 0.84 (0.70-1.30) mg/dL Glucose 99 (70-105) mg/dL Calcium 8.9 (8.6-10.3) mg/dL Calcium panel 06/30/17 Range/Units 04:48 Calcium 8.9 (8.6-10.3) mg/dL Pituitary panel 06/30/17 Range/Units 04:48 Sodium 139 (136-145) mEq/L Potassium 3.7 (3.5-5.1) mEq/L Chloride 107 (98-107) mEq/L Carbon Dioxide 25 (23-29) mEq/L BUN 9 (6-20) mg/dL Creatinine 0.84 (0.70-1.30) mg/dL Glucose 99 (70-105) mg/dL Calcium 8.9 (8.6-10.3) mg/dL Adrenal panel 06/30/17 Range/Units 04:48 Sodium 139 (136-145) mEq/L Potassium 3.7 (3.5-5.1) mEq/L Chloride 107 (98-107) mEq/L Carbon Dioxide 25 (23-29) mEq/L BUN 9 (6-20) mg/dL Creatinine 0.84 (0.70-1.30) mg/dL Glucose 99 (70-105) mg/dL Calcium 8.9 (8.6-10.3) mg/dL All other labs normal. - Attending Attestation have personally seen and examined the patient. I have reviewed pertinent labs , imaging, progress notes, including this one. I agree with the above assessment and plan and wish to include the following... 56M with prior history of gastric and duodenal ulcers s/p EGD complicated by perforation which was found to be contained upon exploration; Presents again with abdominal pain with meals with associated nausea; no vomiting; no other systemic symptoms; last bowel movement was greater than 24hrs ago; states that his stools are hard with resultant blood in stool; Took him for EGD today and found to have a duodenal ulcer; no other pathology seen CLD; advance diet as tolerated (avoid tomato based, spicy foods or any other food types that cause his symptoms) protonix gtt carafate QID will plan for colonoscopy as an outpatient; please follow up in my clinic 1 week from discharge for colonoscopy; General Surgery will sign off; please call with any new questions or concerns;
[2017-06-30] MEDS ORDERED: *HR* FentaNYL (PF) 100 MCG/2 ML VIAL ONE (14:59)
[2017-06-30] MEDS: *HR* Midazolam HCl 5 MG/5 ML VIAL IVP ONE ×2 (15:09→15:16)
--- NOTE | 2017-06-30 17:46 | Internal Med Progress Note ---
Date of Encounter: 06/30/17 Time of Encounter: 09:40 - Assessment and plan (1) Abdominal pain Current Visit: Yes Status: Acute Qualifiers: Abdominal location: epigastric Qualified Code(s): R10.13 - Epigastric pain (2) COPD (chronic obstructive pulmonary disease) Current Visit: Yes Status: Acute Qualifiers: COPD type: chronic bronchitis Chronic bronchitis type: simple Qualified Code(s): J41.0 - Simple chronic bronchitis (3) Epigastric pain Current Visit: Yes Status: Acute Assessment and plan: Patient with constant epigastric pain since May 22. Patient had EGD on the date. He states that he has an abdominal mass was biopsied and caused bleeding. He has been compliant with his medications. He reports BRBPR and constipation. Abdomen is soft and tender to light touch from stethoscope. CT neagtive. Vitals stable, Hgb stable. EGD today: one non-obstructing oozing duodenal ulcer with no stigmata of bleeding, suspicious for H.pylori etiology, no perforation. Normal stomach. Regular diet Continue medications. (4) Ulcer Current Visit: Yes Status: Suspected Assessment and plan: Per history and per EGD today. Stool guaiac negative in the ER Regular diet Continue home medications. (5) Constipation Current Visit: Yes Status: Acute Assessment and plan: Per subjective history. Will start Colace and Miralax. Qualifiers: Constipation type: unspecified constipation type Qualified Code(s): K59.00 - Constipation, unspecified (6) Tobacco use disorder Current Visit: Yes Status: Acute Assessment and plan: Pt expresses desire to stop smoking. Chantix started. (7) CAD (coronary artery disease) Current Visit: Yes Status: Chronic Assessment and plan: Chronic. Pt denies chest pain. Telemetry Qualifiers: Coronary Disease-Associated Artery/Lesion type: [place] artery [place] vs. transplanted heart: [place] heart Associated angina: without angina Qualified Code(s): I25.10 - Atherosclerotic heart disease of [place] coronary artery without angina pectoris (8) DVT prophylaxis Current Visit: Yes Status: Acute Assessment and plan: Pt has been ambulatory. SCDs ordered. - Time Spent With Patient Total time spent is greater than 50% in coordination of care (as documented) at patient's floor/unit and/or counseling patient: less than 15 minutes - Subjective Interval history: Pt was seen and assessed at bedside at 0940. He was alert and awake, oriented and pleasant. He reports almost contant abdominal pain since he had EGD on . He reports epigastric pain /cramping with all po intake other than water. He reports constipation since the same time with BRBPR when he does have a bowel movement. He denies n/v, diarrhea, chest pain SOB. His abd is very tender to even light pressure from stethoscope. - Constitutional Vitals: Temp Pulse Resp BP Pulse Ox 97.4 F L 83 17 106/68 98 06/30/17 15:53 06/30/17 15:53 06/30/17 15:53 06/30/17 15:53 06/30/17 15:53 General appearance: Present: cooperative, mild distress, A&O X 3, pleasant, answers questions appropriately - Head Head exam: Present: atraumatic, normal inspection, normocephalic - Eye Eye exam: Present: normal appearance, conjuntiva pink, sclera anicteric - Neck Neck exam general surgery: Present: supple, trachea midline. Absent: lymphadenopathy - Respiratory Respiratory exam: Present: CTAB. Absent: accessory muscle use, rales, rhonchi, wheezes - Cardiovascular Cardiovascular exam: Present: RRR, +S1, +S2. Absent: diastolic murmur, gallop, rubs, systolic murmur, tachycardia - GI/Abdominal GI/Abdominal exam: Present: diminished bowel sounds, soft, tenderness. Absent: distended - Extremities Exam Extremities exam: Present: normal capillary refill, normal inspection, warm, radial pulses palpable and symmetrical. Absent: calf tenderness, cyanotic, pedal edema, tenderness - Neurological Exam Neurological exam: Present: alert, oriented X3, no focal deficits. Absent: facial droop, speech deficit - Skin Skin exam: Present: dry, intact, normal color, warm. Absent: rash Internal Medicine: Result - Labs CBC & Chem 7: 06/30/17 04:48 06/30/17 04:48 Labs: Short CBC 06/30/17 Range/Units 04:48 WBC 11.3 H (4.3-11.1) K/mcL Hgb 12.7 L (12.9-16.9) g/dL Hct 38.1 (37.5-50.1) % Plt Count 244 (140-400) K/mcL Neutrophils # 7.2 (1.6-8.9) K/mcL BMP 06/30/17 04:48 Sodium 139 Potassium 3.7 Chloride 107 Carbon Dioxide 25 BUN 9 Creatinine 0.84 Glucose 99 Calcium 8.9 - ABG Interpretation ABG results: PT/INR, D-dimer PT 12.0 Seconds (9.4-12.1) 06/30/17 04:48 Consult Discharge Plan - Plan Referrals: Moe Nam DO [Primary Care Provider] - 07/24/17 2:00 pm
--- NOTE | 2017-06-30 19:25 | Electrocardiograph Report ---
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
[2017-06-30] MEDS ORDERED: Melatonin 3 MG TABLET PO PRN (23:17)
[2017-07-01] MEDS: OXYCODONE Oral CONC 10 MG/0.5 ML ORAL.SYG SL PRN ×2 (00:59→06:41)
[2017-07-01 05:56] LABS: Basophils % 0.4 %; Eosinophils # 0.4 K/mcL (0.0-0.6); Eosinophils % 3.9 %; Hematocrit 39.6 % (37.5-50.1); Hemoglobin 12.8 g/dL (12.9-16.9); Immature Granulocytes % 0.3 % (0-4); Lymphocytes % 31.2 %; Mean Corpuscular HGB Conc 32.3 g/dL (31.6-35.5); Mean Corpuscular Hemoglobin 28.1 pg (28.0-33.3); Mean Corpuscular Volume 86.8 fL (83.0-100.0); Monocytes # 0.7 K/mcL (0.0-1.3); Monocytes % 7.1 %; Neutrophils # 5.4 K/mcL (1.6-8.9); Platelet Count 244 K/mcL (140-400); Red Blood Count 4.56 M/mcL (4.19-5.50); Red Cell Distribution Width 14.7 % (11.5-14.5); Segmented Neutrophils % 57.1 %
[2017-07-01 06:14] LABS: BUN/Creatinine Ratio 10 (6-26); Blood Urea Nitrogen 10 mg/dL (6-20); Calcium 8.6 mg/dL (8.6-10.3); Carbon Dioxide 27 mEq/L (23-29); Chloride 104 mEq/L (98-107); Glucose 87 mg/dL (70-105); Osmolality,Calculated 282 (280-300); Potassium 3.9 mEq/L (3.5-5.1); Sodium 137 mEq/L (136-145); eGFR For African Americans > 60 (> 60); eGFR For Non-African Americans > 60 (> 60)
[2017-07-01] MEDS: Pantoprazole 40 MG VIAL IVP SCH (06:41)
[2017-07-01 07:35] VITALS: BP 117/83
[2017-07-01] MEDS: Budesonide/Formoterol 80/4.5 MDI IH SCH (08:44)
--- NOTE | 2017-07-01 12:06 | Discharge Summary ---
- NOTES TO OUTPATIENT PROVIDER Notes to Outpatient Provider: Pt left before being discharged. He was told that he would not be getting narcotic pain medication at discharge and he stated that he did not want to wait and would not sign any discharge paperwork. Orders not resulted at time of discharge: Pending orders 06/30/17 15:23 H. pylori Urease Culture [RM] Routine Date of Encounter: 07/01/17 Time of Encounter: 08:40 - Discharge Diagnosis (1) Abdominal pain Priority: Primary Status: Acute Assessment and Plan: Pt continued to report 7-8/10 abdominal pain today. All questions were answered regarding EGD and outcome/follow ups, etc. Pt asked what pain medication that he was going to be given. I told him that he would continue to take Carafate and Protonix BID and modify his diet and stop smoking and that would take time, but would help with the pain. Pt states that he was being given "Oxy liquid in a syringe" and wanted some for home. I told him that was not appropriate treatment for his condition and he stated that he was going to leave and that he would not sign papers. He discontinued his own IV and was gone prior to me being able to complete his paperwork. He did not receive his prescriptions for Protonix or Carafate. Qualifiers: Abdominal location: epigastric Qualified Code(s): R10.13 - Epigastric pain (2) COPD (chronic obstructive pulmonary disease) Priority: Secondary Status: Acute Assessment and Plan: No acute exacerbation. Lungs clear and diminished througout with faint wheezing in bilateral bases posteriorly. He denies change in cough, fever, chills. Pt expressed a desire to stop smoking, Chantix was started. Continue home medications. Qualifiers: COPD type: chronic bronchitis Chronic bronchitis type: simple Qualified Code(s): J41.0 - Simple chronic bronchitis (3) Epigastric pain Priority: Secondary Status: Acute Assessment and Plan: Abdomen is soft and tender to light touch from stethoscope. CT neagtive. Vitals stable, Hgb stable. EGD 06/30/17: one non-obstructing oozing duodenal ulcer with no stigmata of bleeding, suspicious for H.pylori etiology, no perforation. Normal stomach. Regular diet Continue medications. Pt left before rx and discharge completed. (4) Ulcer Priority: Secondary Status: Suspected Assessment and Plan: Plan as above. (5) Constipation Priority: Secondary Status: Acute Assessment and Plan: Per subjective history. continue Miralax and Colace. Qualifiers: Constipation type: unspecified constipation type Qualified Code(s): K59.00 - Constipation, unspecified (6) Tobacco use disorder Priority: Secondary Status: Acute Assessment and Plan: Pt expresses desire to stop smoking. Chantix started. Pt did not get rx prior to him leaving. (7) CAD (coronary artery disease) Priority: Secondary Status: Chronic Assessment and Plan: Pt denies chest pain. Continue home medications. Qualifiers: Coronary Disease-Associated Artery/Lesion type: tribal artery [place] vs. transplanted heart: tribal heart Associated angina: without angina Qualified Code(s): I25.10 - Atherosclerotic heart disease of tribal coronary artery without angina pectoris (8) DVT prophylaxis Priority: Secondary Status: Acute Assessment and Plan: Pt ambulatory. SCDs ordered. Hospital course: Mr. Ivy is a 56 year old male with PMH of lung nodules, COPD, chronic constipation, tobacco use, duodenal ulcer, CAD. Pt presented with continued abdominal pain after EGD last week. Pt was found to have duodenal ulcer, pt was placed on carafate and PPI. Suspect that pt was not compliant with medications and returned with continued pain. Second EGD revealed oozing duodenal ulcer without stimata of bleeding. Suspect H. pylori. Biopsy was sent and results are pending. Pt was going to be discharged today and requested pain medication prior to discharge. Pt was told that he would not be getting narcotic pain medications and he states that he was ready to go home and that he would not sign any paperwork. Pt left prior to receiving any prescriptions or discharge papers. Stool guaiac was negative in the ED, hgb stable, vitals and labs stable and WNL. Pt was alert, awake, oriented, and was able to carry on conversation and make his own decisions. Pt was ready for discharge. - Time Spent with Patient Total time spent providing and/or coordinating discharge services: Less than 30 minutes - Discharge Medications Prescriptions: Aspirin Enteric Coated [Aspirin EC] 81 mg PO DAILY #30 tablet. Omeprazole [PriLOSEC] 20 mg PO BIDAC #60 capsule. Sucralfate [Carafate] 10 ml PO TID #100 ml Home Medications: Budesonide/Formoterol 80/4.5 [Symbicort 80/4.5] 2 puff IH BIDR #1 inhaler 05/18 [Rx] Ipratropium/Albuterol Neb [Duoneb] 3 ml IH Q6HR PRN #100 inhsol 05/18/17 [Rx] Nitroglycerin 0.4 mg SL Q5MIN PRN #10 tab.subl 05/18/17 [Rx] Aspirin Enteric Coated [Aspirin EC] 81 mg PO DAILY #30 tablet. 07/01/17 [Rx] Docusate [Colace] 200 mg PO DAILY capsule 07/01/17 [Rx] Melatonin 3 mg PO HS PRN tablet 07/01/17 [Rx] Omeprazole [PriLOSEC] 20 mg PO BIDAC #60 capsule. 07/01/17 [Rx] Polyethylene Glycol 3350 [MiraLAX] 17 gm PO DAILY powd.pack 07/01/17 [Rx] Sucralfate [Carafate] 10 ml PO TID #100 ml 07/01/17 [Rx] Varenicline [Chantix] 0.5 mg PO DAILY tablet 07/01/17 [Rx] Allergies/Adverse Reactions: 3 Allergy/AdvReac Type Severity Reaction Status Date / Time morphine Allergy Vomiting Verified 06/29/17 20:34 Date of admission: 06/29/17 21:57 Primary care physician: Moe Nam DO Consults: 06/30/17 06:38 Consult to Surgery [CONS] Routine Consulting Provider: [facility] Reason for Consult: Abdominal pain possible gastric ulcer. Requests Surgical consult, refuses GI consult Call Completed: No Discharging clinician: Arabella Beal Anticipated date of discharge: 07/01/17 - Constitutional Vitals: Temp Pulse Resp BP Pulse Ox 98.7 F 74 18 117/83 94 07/01/17 07:29 07/01/17 07:29 07/01/17 07:29 07/01/17 07:29 07/01/17 07:29 General appearance: Present: cooperative, mild distress, A&O X 3, pleasant, no acute distress, answers questions appropriately - Head Head exam: Present: atraumatic, normal inspection, normocephalic - Eye Eye exam: Present: normal appearance, conjuntiva pink, sclera anicteric - Neck Neck exam general surgery: Present: supple, trachea midline. Absent: lymphadenopathy - Respiratory Respiratory exam: Present: CTAB. Absent: accessory muscle use, decreased breath sounds, rales, respiratory distress, rhonchi, wheezes - Cardiovascular Cardiovascular exam: Present: RRR, +S1, +S2. Absent: diastolic murmur, gallop, rubs, systolic murmur - GI/Abdominal GI/Abdominal exam: Present: normal bowel sounds, soft, tenderness. Absent: distended, hepatomegaly, splenomegaly - Extremities Exam Extremities exam: Present: normal capillary refill, normal inspection, warm, radial pulses palpable and symmetrical. Absent: calf tenderness, cyanotic, pedal edema, tenderness - Neurological Exam Neurological exam: Present: alert, oriented X3, no focal deficits. Absent: facial droop, speech deficit - Skin Skin exam: Present: dry, intact, normal color, warm. Absent: rash - Patient Status Disposition: Home, Self-Care Condition: Good Functional capacity at discharge: independent ambulation Overall status at discharge: patient is progressing back to baseline - Discharge Instructions Follow Up With: Moe Nam DO [Primary Care Provider] - 07/24/17 2:00 pm Additional Instructions: Follow up with PCP in 5-7 days Follow up with GI as scheduled. YOu will need colonoscopy in the near future. Return to the ER as needed Return to your normal diet, activities as tolerated. Take your medications as directed. - Diet and Activity Activity: increase activity as tolerated Diet: advance to your usual diet
== END 2017-07-01 09:30 | disposition home or self-care (01) ==
LOC: 3BNU 16:46 → EMEROO 16:46 → 3BNU 22:53
PROVIDERS: ADMIT Internal Medicine; ATTEND Internal Medicine